=== PATIENT | male | born 1945 | race Caucasian/White ===

== ENCOUNTER → 2024-01-10 06:45 | Outpatient (REF) | payer MEDICARE, OTHER, SELFPAY ==
[2024-01-10 09:57] LABS: Urine Albumin Negative (Neg - Trace); Urine Bilirubin Negative (Negative); Urine Character Clear (Clear); Urine Color Yellow; Urine Glucose Negative (Negative); Urine Ketone Negative (Negative); Urine Leukocyte Trace (Negative); Urine Nitrite Negative (Negative); Urine Occult Blood Negative (Negative); Urine Specific Gravity 1.015 (<1.030); Urine Urobilinogen Negative (Neg - 1+)
[2024-01-10 09:58] LABS: % Basophils 1.1 % (0-2); % Eosinophils 9.5 % (0-6); % Immature Granulocytes 0.4 % (0-0.5); % Lymphocytes 21.7 % (20.5-51.1); % Monocytes 8.3 % (1.7-9.3); Absolute Basophils 0.1 10^3/uL (0-0.2); Absolute Eosinophils 0.7 10^3/uL (0-0.7); Absolute Lymphocytes 1.6 10^3/uL (1.2-3.4); Absolute Monocytes 0.6 10^3/uL (0.1-0.6); Absolute Neutrophils 4.2 10^3/uL (1.4-6.5); Hematocrit 41.8 % (39.0-52.0); Hemoglobin 13.7 g/dL (13.0-18.0); Mean Corp Hgb Conc. 32.8 g/dL (33.0-37.0); Mean Corpuscular Hgb 33.1 pg (27.0-31.0); Mean Platelet Volume 11.2 fL (7.4-10.4); Nucleated Red Blood Cells % 0 % (-); Platelet Count 175 10^3/uL (130-400); Red Blood Cell Count 4.14 10^6/uL (4.70-6.10); Red Cell Dist. Width 13.9 % (11.5-14.5); White Blood Cell Count 7.1 10^3/uL (4.8-10.8)
[2024-01-10 10:16] LABS: Urine Squamous Cell 0-2 /LPF (Few)
[2024-01-10 10:17] LABS: Urine Red Blood Cell 0-2 /HPF (0-2); Urine White Cell 0-2 /HPF (0-5)
[2024-01-10 11:05] LABS: Glycohemoglobin (HgbA1c) 6.1 % (4.0-5.6)
[2024-01-10 12:36] LABS: ALT (SGPT) 17 U/L (0-50); AST (SGOT) 25 U/L (17-59); Albumin 4.6 g/dl (3.5-5.0); Alkaline Phosphatase 63 U/L (38-126); Blood Urea Nitrogen 23 mg/dl (9-20); Calcium 9.8 mg/dl (8.4-10.2); Carbon Dioxide 24 mmol/L (22-30); Chloride 106 mmol/L (98-107); Glucose 101 mg/dl (70-99); HDL Cholesterol 47 mg/dl; LDL Cholesterol, Calculated 66 mg/dl; Potassium 4.3 mmol/L (3.5-5.1); Sodium 142 mmol/L (135-145); Total Bilirubin 1.1 mg/dl (0.2-1.3); Total Cholesterol 141 mg/dl (50-199); Total Protein 7.3 g/dl (6.3-8.2); Triglyceride 143 mg/dl (10-149); Very Low Density Lipoprotein 28 mg/dl (0-30); eGFR 51.77
[2024-01-10 12:37] LABS: PSA, Total - Screen 4.57 ng/ml (0.0-4.0); TSH Reflex To Free T4 2.93 uIU/ml (0.47-4.68)
== END ==
LOC: HWLAB 06:45
PROVIDERS: ATTENDING PHYSICIAN Family Medicine
DX: E11.69 Type 2 diabetes mellitus with other specified complication (principal); N42.9 Disorder of prostate, unspecified; E07.9 Disorder of thyroid, unspecified; I10 Essential (primary) hypertension; Z12.5 Encounter for screening for malignant neoplasm of prostate
CPT/HCPCS: 36415; 80053; 80061; 81003; 81015; 83036; 84443; 85025; G0103

== ENCOUNTER 2024-06-06 18:02 | Inpatient (IN) | payer MEDICARE, OTHER, SELFPAY ==
[2024-06-06] VITALS (8 sets, daily range): BP systolic 101–144; BP diastolic 51–76; BMI 23.8
--- NOTE | 2024-06-06 13:16 | ED.GENMED ---
History of Present Illness
General
Chief Complaint: Dizziness
Time Seen by Provider: 06/06/24 13:01
History of Present Illness
History of Present Illness:
78-year-old male with medical history significant for CAD status post bypass and hypertension presents to the emergency department for evaluation of generalized weakness, lightheadedness, nausea, and abdominal cramping for 2 to 3 weeks. He also
notes that he has been jaundiced for at least 1 month but declined to seek medical evaluation for this. Denies any abdominal pain at present. Appetite has generally been poor with early satiety. Denies any fevers or night sweats. Prior abdominal
surgeries include cholecystectomy and appendectomy
Past History
Past History
ED Past Medical History: HTN
ED Past Surgical History: Appendectomy and Cholecystectomy
Social History
Tobacco: Non-smoker
Alcohol: None
Drug: None
Personal:
Living: with family
Review of Systems
Review of Systems
Allergies reviewed?: Yes
All Other Systems: ROS reviewed and negative except as documented in HPI and ROS
Phy Exam
Physical Exam
Physical Exam:
GEN: Markedly jaundiced, no apparent distress
HEENT: Oral mucosa moist, no scleral icterus
Cardiac: Regular rate and rhythm, no murmurs
Lung: No respiratory distress, no tachypnea
Abdomen: Soft, grossly nontender, no palpable masses
MSK: No gross deformity or injuries
Skin: marked jaundice
Neuro: AO x3, moves all extremities freely
Psych: Calm, cooperative
Course
Orders/Labs/Results
Orders:
Orders
06/06/24 12:55
EKG [Electrocardiogram (*1)] Stat
Reason for Study: Vertigo / Dizzy
EKG- Treatment ONCE
06/06/24 13:14
CT Abd/Pel (IV only)-[facility] only Urgent
Comment:
Reason For Exam: painless jaundice
0.9% Sodium Chloride 1000 ml [Nss] 1,000 ml IV BOLUS
06/06/24 13:15
Urinalysis Reflex To Culture Urgent
06/06/24 13:50
Ammonia Urgent
Complete Blood Count/With Diff Urgent
Comprehensive Metabolic Panel Urgent
Direct Bilirubin Urgent
Lipase Urgent
Prothrombin Time Urgent
06/06/24 17:13
Admit/Transfer Patient As Directed
Co-Sign Provider:
Level of Care: Inpatient admission
Assign to:: Medical/Surgical
Physician / Group: [facility]
Diagnosis: Jaundice
Reason for Hospitalization: IVFs, MRI, GI consult
Expected length of stay greater than two midnights?: Yes
ELOS- Estimated Length of Stay in days: 3
I certify the patient meets the requirements for IP care: Yes
PRN Pain Medication Management As Directed
May give lesser potent ordered pain med per pt: Yes
preference::
Protocol:: Medication orders for pain may be administered in a
manner that supports deferring to patient preference
when the pt is:
- Requesting an ordered lesser potent pain medication.
Least to most potent pain medications are defined
as: acetaminophen < NSAID < tramadol < opioids
(morphine, oxycodone, hydromorphone).
- Requesting a lesser dose of the same medication IF
ORDERED.
- Requesting a less intrusive route of administration
if both routes are prescribed by the provider (PO <
IV).
06/06/24 17:15
Code Status As Directed
Resuscitation Status: Full Code
Abnormal Lab Results
06/06/24
13:50
WBC 13.6 H 10^3/uL
(4.8-10.8)
RBC 3.33 L 10^6/uL
(4.70-6.10)
Hgb 11.2 L g/dL
(13.0-18.0)
Hct 31.2 L %
(39.0-52.0)
MCH 33.6 H pg
(27.0-31.0)
RDW 18.6 H %
(11.5-14.5)
MPV 11.5 H fL
(7.4-10.4)
Abs Immat Gran (auto) 0.2 H 10^3/uL
(0-0.05)
Absolute Neuts (auto) 12.0 H 10^3/uL
(1.4-6.5)
Absolute Lymphs (auto) 0.5 L 10^3/uL
(1.2-3.4)
Absolute Monos (auto) 0.9 H 10^3/uL
(0.1-0.6)
Immature Gran % 1.1 H %
(0-0.5)
Neutrophils % 87.8 H %
(42.2-75.2)
Lymphocytes % 3.7 L %
(20.5-51.1)
Carbon Dioxide 17 L mmol/L
(22-30)
BUN 35 H mg/dl
(9-20)
Creatinine 1.4 H mg/dL
(0.7-1.3)
Glucose 140 H mg/dl
(70-99)
Total Bilirubin 11.5 H mg/dl
(0.2-1.3)
Direct Bilirubin 8.2 H mg/dl
(0.0-0.4)
AST 115 H U/L
(17-59)
ALT 174 H U/L
(0-50)
Alkaline Phosphatase 624 H U/L
(38-126)
Ammonia < 9 L umol/L
(9-30)
06/06/24 13:50
06/06/24 13:50
Vital Signs
Initial and Last Documented VS:
Initial Vital Signs
Temp Pulse Resp BP Pulse Ox
98.2 F 98 20 144/74 100
06/06/24 12:55 06/06/24 12:55 06/06/24 12:55 06/06/24 12:55 06/06/24 12:55
Last Documented Vital Signs
Temp Pulse Resp BP Pulse Ox
98.2 F 93 20 116/59 99
06/06/24 12:55 06/06/24 17:00 06/06/24 12:55 06/06/24 17:00 06/06/24 17:00
MDM/Problems Addressed
MDM/Problems Addressed:
Imaging does not clearly reveal a pancreatic or biliary mass however this remains at the top of the differential. Certainly could represent an obstructing gallstone or biliary stricture. The patient will be admitted to the hospitalist service for
further GI workup and management
*Critical Care Note
Total Time (30-74mins, 75-104mins- exclusive of procedures): Not Applicable
ED Attending Note
-
Portions of this chart may have been created with voice recognition software.� Occasional wrong word or��sound alike� substitutions may have occurred due to the inherent limitations of voice recognition software.
Discharge Plan
Departure
Patient Disposition: Admit
Date of Disposition: 06/06/24
Time of Disposition: 16:05
Presentation/result/management discussed w/ accepting MD/DO: Hospitalist
Discharge Problem:
Obstructive jaundice
Interventions
Interventions:
*Risk Screen - Suicide Last Done: 06/06/24 12:55
*General Assessment Last Done: 06/06/24 12:55
*Neglect/Abuse Screening Last Done: 06/06/24 14:28
*ED COVID-19 Vaccine History Last Done: 06/06/24 12:55
ED- Neurological Assessment Last Done: 06/06/24 14:28
ED Swallowing Screen Last Done: 06/06/24 15:05
[2024-06-06] MEDS: NSS 1000 IV ×2 (13:51→19:03)
[2024-06-06 13:59] LABS: % Basophils 0.7 % (0-2); % Eosinophils 0.5 % (0-6); % Immature Granulocytes 1.1 % (0-0.5); % Lymphocytes 3.7 % (20.5-51.1); % Monocytes 6.2 % (1.7-9.3); % Neutrophils 87.8 % (42.2-75.2); Absolute Basophils 0.1 10^3/uL (0-0.2); Absolute Eosinophils 0.1 10^3/uL (0-0.7); Absolute Immature Granulocytes 0.2 10^3/uL (0-0.05); Absolute Lymphocytes 0.5 10^3/uL (1.2-3.4); Absolute Monocytes 0.9 10^3/uL (0.1-0.6); Hematocrit 31.2 % (39.0-52.0); Hemoglobin 11.2 g/dL (13.0-18.0); Mean Corp Hgb Conc. 35.9 g/dL (33.0-37.0); Mean Corpuscular Hgb 33.6 pg (27.0-31.0); Mean Corpuscular Volume 93.7 fL (80.0-94.0); Mean Platelet Volume 11.5 fL (7.4-10.4); Nucleated Red Blood Cells % 0 % (-); Platelet Count 281 10^3/uL (130-400); Red Blood Cell Count 3.33 10^6/uL (4.70-6.10); Red Cell Dist. Width 18.6 % (11.5-14.5); White Blood Cell Count 13.6 10^3/uL (4.8-10.8)
[2024-06-06 14:09] LABS: PT 14.2 Sec (11.4-14.6)
[2024-06-06 14:10] LABS: Ammonia < 9 umol/L (9-30)
[2024-06-06 14:11] LABS: ALT (SGPT) 174 U/L (0-50); AST (SGOT) 115 U/L (17-59); Albumin 4.1 g/dl (3.5-5.0); Alkaline Phosphatase 624 U/L (38-126); Blood Urea Nitrogen 35 mg/dl (9-20); Calcium 9.7 mg/dl (8.4-10.2); Chloride 100 mmol/L (98-107); Direct Bilirubin 8.2 mg/dl (0.0-0.4); Glucose 140 mg/dl (70-99); Lipase 140 U/L (23-300); Potassium 4.2 mmol/L (3.5-5.1); Sodium 138 mmol/L (135-145); Total Bilirubin 11.5 mg/dl (0.2-1.3); Total Protein 7.2 g/dl (6.3-8.2); eGFR 51.77
[2024-06-06 14:21] LABS: Carbon Dioxide 17 mmol/L (22-30)
--- NOTE | 2024-06-06 17:18 | HPS.HSE ---
Family Physician
-
Family Physician: Bhanu Isaacs
Chief Complaint
-
Jaundice
History of Present Illness
Patient is a 78 y/o male past medical history of CAD s/p CABG, Hypertension, Hyperlipidemia and Hypothyroidism who presents with jaundice. Patient reports his skin started to turn yellow about a month ago. Over the past month he has had several
episodes of significant reflux. He reports anorexia, and reports when he eats he feels full very quickly. He denies any weight loss. He denies any changes in bowel movements.
Medical History
Past Medical History
Past Medical History: Reports Other
Additional Past Medical History:
Coronary Artery Disease s/p CABG in 2011
Essential Hypertension
Hyperlipidemia
Hypothyroidism
Past Surgical History: Reports Other
Additional Past Surgical History:
CABG
Cholecystectomy
Appendectomy
Social History
Tobacco: Non-smoker
Alcohol: None
Drug: None
Personal:
Living: With Family
Family History
Family History: Not pertinent
Allergies / Home Medications
Allergies reflects when Allergies were last updated in [facility].
Home Medications with original date entered in [facility]
Allergy/Medication List:
Allergies
Allergy/AdvReac Type Severity Reaction Status Date / Time
Penicillins Allergy Unknown Verified 06/06/24 12:58
Home Medications
aspirin 81 mg tablet,delayed release 81 mg PO DAILY 05/08/12
ascorbic acid (vitamin C) 1,000 mg tablet (Vitamin C) 1,000 mg PO DAILY 06/06/24
cholecalciferol (vitamin D3) 50 mcg (2,000 unit) tablet (Vitamin D3) 50 mcg PO DAILY 06/06/24
elderberry fruit 350 mg capsule 1.7 mg PO DAILY 06/06/24
levothyroxine 50 mcg tablet 50 mcg PO DAILY 06/06/24
metoprolol tartrate 25 mg tablet 12.5 mg PO BID 06/06/24
simvastatin 20 mg tablet 20 mg PO QPM 06/06/24
therapeutic multivitamin 1 tab PO DAILY 06/06/24
Review of Systems
-
A 12 point ROS was completed and negative except as noted: Yes
Constitutional: Reports Chills; Denies Fever
Respiratory: Denies Cough or Trouble Breathing
Cardiac: Denies Chest Pain or Palpitations
Abdomen/GI: Reports See HPI
Physical Exam
Vital Signs
Vital Signs
Temp Pulse Resp BP Pulse Ox
98.2 F 93 20 116/59 99
06/06/24 12:55 06/06/24 17:00 06/06/24 12:55 06/06/24 17:00 06/06/24 17:00
Physical Exam
General: Comfortable and Conversant
HEENT: Moist mucous membranes and Other (Sclera Icteric)
Respiratory: Clear and Non Labored Respirations
Cardiac: S1/S2 and Regular Rhythm; No Murmur
GI: Soft, Non Tender and Non Distended
Rectal: Deferred by Provider
Musculoskeletal: No Clubbing, No Cyanosis and No Edema
Skin: Warm, Dry and Jaundice
Neuro: Awake, Alert and Nonfocal/grossly intact
Psych: Calm
Laboratory Results
-
06/06/24 13:50
06/06/24 13:50
Laboratory Results
PT 14.2 Sec (11.4-14.6) 06/06/24 13:50
INR 1.10 06/06/24 13:50
Total Bilirubin 11.5 mg/dl (0.2-1.3) H 06/06/24 13:50
AST 115 U/L (17-59) H 06/06/24 13:50
ALT 174 U/L (0-50) H 06/06/24 13:50
Alkaline Phosphatase 624 U/L (38-126) H 06/06/24 13:50
Lipase 140 U/L (23-300) 06/06/24 13:50
Data Reviewed
-
CT Scan: Report Reviewed by me
Lab Data: Labs Reviewed by me
Impression/Plan
-
Obstructive Jaundice
-Consult GI
-Check MRI/MRCP
-Start empiric antibiotics with Levaquin and Flagyl
-Continue to trend LFTs
Coronary Artery Disease s/p CABG in 2011
-Continue aspirin
CKD Stage IIIA
-Creatinine at baseline
Essential Hypertension
-Continue metoprolol
Hyperlipidemia
-Hold simvastatin
Hypothyroidism
-Continue levothyroxine
DVT proph: Lovenox
Code Status: Full Code
--- NOTE | 2024-06-06 18:19 | W.PN.UPDATE ---
Update Note
Progress Note Update
This is an addendum to the H&P written by Rosangela Daniels on 06/06/2024. Patient seen and examined independently with PA.
78-year-old male past medical history of CAD, mild CKD, hypothyroidism, hyperlipidemia here with painless jaundice and transaminitis with hyperbilirubinemia. CT abdomen pelvis shows severe intrahepatic/extrahepatic biliary ductal dilatation common
bile duct up to 2.5 cm with nonopacification of the distal common bile duct possibly representing a lesion. There is 2.1 cm cystic focus within the duodenum. Labs leukocytosis.
Presentation concerning for choledocholithiasis secondary to biliary malignancy. MRCP, Zosyn, GI consulted.
[2024-06-06] MEDS: LOPRESSOR 12.5 MG PO (19:59)
[2024-06-06] MEDS: FLAGYL 500 MG 100 IV (19:59)
[2024-06-06] MEDS: LOVENOX 40 MG SC (19:59)
[2024-06-06] MEDS: LEVAQUIN 100 IV (21:06)
[2024-06-06 21:12] LABS: Urine Albumin Trace (Neg - Trace); Urine Bilirubin 2+ (Negative); Urine Character Clear (Clear); Urine Color Amber; Urine Glucose Negative (Negative); Urine Ketone Trace (Negative); Urine Leukocyte Trace (Negative); Urine Nitrite Negative (Negative); Urine Occult Blood Negative (Negative); Urine Specific Gravity 1.015 (<1.030); Urine Urobilinogen 3+ (Neg - 1+)
[2024-06-06 21:36] LABS: Urine Granular Cast 0-2 /LPF (0); Urine White Cell 0-2 /HPF (0-5)
[2024-06-06] MEDS: MELATONIN 5 MG PO (22:39)
[2024-06-07] MEDS: FLAGYL 500 MG 100 IV ×3 (04:21→20:37)
[2024-06-07 05:50] VITALS: BMI 24.1
[2024-06-07] MEDS: SYNTHROID 50 MCG PO (06:00)
--- NOTE | 2024-06-07 07:05 | CON.GI ---
Addendum entered and electronically signed by Catalina Fonseca MD 06/07/24 13:09:
I saw and examined the patient.
The [employer] SUPERINTENDENT's note was reviewed and I agree with the note.
Comment: This is a 78-year-old male who presented with painless jaundice and loss of appetite and was noted to have abnormal LFTs with CT showing intra and extrahepatic ductal dilatation and possible cystic focus within the duodenum. He denies any
fevers or chills also denies any recent weight loss. He has had cholecystectomy a few years ago. No prior colonoscopy, had endoscopy quite a few years ago prior to his cholecystectomy.
Assessment and plan painless obstructive jaundice concerning for neoplasm. He is scheduled for an MRI with MRCP and based on those results will need an EUS and ERCP. Continue antibiotics for now currently has no signs of cholangitis but given mild
leukocytosis and low-grade fever continue antibiotics till obstruction able to be relieved with possible ERCP and stent on Monday
Original Note:
Consultation
-
Date/Time Consultation Requested: 06/06/24 185
Date/Time Consultation Performed: 06/07/24 0700
Requesting Provider: Rosangela Daniels PA-C
Performing Provider: SIL Terry
Reason for Consultation: jaundice
Medical History
Chief Complaint / HPI
History of Present Illness:
Pt is a 78yo presents with hx CAD with prior CABG, hypercholesterolemia, hypothyroidism, prior appe and ismael with onset of jaundice. On admission pt noted with bilirubin in 11.5, D bili 8.2, AST 115, ALT 174, alk phos 624, creat 1.4, WBC 13,600,
hbg 11.2. CT on admission notable for severe intrahepatic and extra hepatic biliary ductal dilation with the common bile duct measuring up to 2.5 cm. There is nonopacification of the distal common bile duct, possibly representing a lesion. There is
an apparent 2.1 cm cystic focus within the duodenum, adjacent to the in the juxta-ampullary region, prior ismael, large inguinal hernia with non obstructive colon, prostatomegaly. Asked to GI consult for evaluation.
In review with patient he has some decreased appetite and increased GERD with Zantac use. He denies any other change in urine/stool color, dysphagia, nausea, vomiting, abdominal pain, diarrhea, constipation or rectal bleeding. Distant hx EGD
prior to ismael in past and no prior colonoscopy.
Past Medical History
Past Medical History: CAD, Hypercholesterolemia and Hypothyroidism
Past Surgical History: Appendectomy, Cardiac (CABG 2011) and Cholecystectomy
Social History
Tobacco: Non-Smoker
Alcohol: None
Drug: None
Personal:
Living: With Family
Employment: Retired
Family History
Family History: Other (no family hx colon CA or polyps )
Allergies / Home Medications
Allergy/AdvReac Type Severity Reaction Status Date / Time
Penicillins Allergy Unknown Verified 06/06/24 12:58
�Medication �Instructions �Recorded
aspirin 81 mg tablet,delayed 81 mg PO DAILY 05/08/12
release
ascorbic acid (vitamin C) 1,000 mg 1,000 mg PO DAILY 06/06/24
tablet (Vitamin C)
cholecalciferol (vitamin D3) 50 50 mcg PO DAILY 06/06/24
mcg (2,000 unit) tablet (Vitamin
D3)
elderberry fruit 350 mg capsule 1.7 mg PO DAILY 06/06/24
levothyroxine 50 mcg tablet 50 mcg PO DAILY 06/06/24
metoprolol tartrate 25 mg tablet 12.5 mg PO BID 06/06/24
simvastatin 20 mg tablet 20 mg PO QPM 06/06/24
therapeutic multivitamin 1 tab PO DAILY 06/06/24
Review of Systems
-
History Source: Patient
Constitutional: Reports Fever (low grade )
EENT: Reports No Symptoms
Respiratory: Reports No Symptoms
Cardiac: Reports No Symptoms
Abdomen/GI: Reports Other (decreased appetite )
: Reports No Symptoms
Musculoskeletal: Reports No Symptoms
Skin: Reports No Symptoms
Neurological: Reports No Symptoms
Endocrine: Reports No Symptoms
Hematologic/Lymphatic: Reports No Symptoms
Vital Signs
Temp Pulse Resp BP Pulse Ox
97.6 F 96 14 120/58 99
06/06/24 23:29 06/06/24 23:29 06/06/24 23:29 06/06/24 23:29 06/06/24 23:29
Physical Exam
Exam
General: Well Developed, Well Nourished and No Apparent Distress
HEENT: Normocephalic and Anicteric
Respiratory: Clear
Cardiac: Regular Rhythm
GI: Soft, Non Tender, Non Distended and Other (minimal asymmetry with left inguinal hernia )
Musculoskeletal: No Clubbing and No Cyanosis
Skin: Warm and Dry
Neuro: Awake, Alert and AO x 3
Psych: Calm
Results
WBC 13.6 10^3/uL (4.8-10.8) H 06/06/24 13:50
Hgb 11.2 g/dL (13.0-18.0) L 06/06/24 13:50
Hct 31.2 % (39.0-52.0) L 06/06/24 13:50
MCV 93.7 fL (80.0-94.0) 06/06/24 13:50
Plt Count 281 10^3/uL (130-400) 06/06/24 13:50
Absolute Neuts (auto) 12.0 10^3/uL (1.4-6.5) H 06/06/24 13:50
PT 14.2 Sec (11.4-14.6) 06/06/24 13:50
INR 1.10 06/06/24 13:50
Sodium 138 mmol/L (135-145) 06/06/24 13:50
Potassium 4.2 mmol/L (3.5-5.1) 06/06/24 13:50
Chloride 100 mmol/L (98-107) 06/06/24 13:50
Carbon Dioxide 17 mmol/L (22-30) L 06/06/24 13:50
BUN 35 mg/dl (9-20) H 06/06/24 13:50
Creatinine 1.4 mg/dL (0.7-1.3) H 06/06/24 13:50
Calcium 9.7 mg/dl (8.4-10.2) 06/06/24 13:50
Total Bilirubin 11.5 mg/dl (0.2-1.3) H 06/06/24 13:50
AST 115 U/L (17-59) H 06/06/24 13:50
ALT 174 U/L (0-50) H 06/06/24 13:50
Alkaline Phosphatase 624 U/L (38-126) H 06/06/24 13:50
Lipase 140 U/L (23-300) 06/06/24 13:50
Diagnostic Image Results:
06/06/24 CT Abd/Pel (IV only)-DH only
Severe intrahepatic and extra hepatic biliary ductal dilation with the common bile duct measuring up to 2.5 cm. There is nonopacification of the distal common bile duct, possibly representing a lesion. There is an apparent 2.1 cm cystic focus within
the duodenum, adjacent to the in the juxta-ampullary region. Recommend GI consultation for further evaluation.
Prior cholecystectomy.
Large left inguinal hernia containing nonobstructing colon.
Prostatomegaly.
Prior GI Procedures:
EGD: in past prior to ismael
Colonoscopy: none
Assessment / Plan
-
Pt is a 78yo presents with hx CAD with prior CABG, hypercholesterolemia, hypothyroidism, prior appe and ismael with onset of jaundice. On admission pt noted with bilirubin in 11.5, D bili 8.2, AST 115, ALT 174, alk phos 624, creat 1.4, WBC 13,600,
hbg 11.2. CT on admission notable for severe intrahepatic and extra hepatic biliary ductal dilation with the common bile duct measuring up to 2.5 cm. There is nonopacification of the distal common bile duct, possibly representing a lesion. There is
an apparent 2.1 cm cystic focus within the duodenum, adjacent to the in the juxta-ampullary region, prior ismael, large inguinal hernia with non obstructive colon, prostatomegaly. Asked to GI consult for evaluation.
-jaundice
-CT concern for severe ductal dilatation CBD 2.5 cm with possible CBD lesion with 2.1 cm focus in duodenum
-leukocytosis/low grade temp
-mild FRANCESCA
-large non obstructive left inguinal hernia
other med problems:
-CAD with prior CABG
-hypercholesterolemia
-hypothyroidism
-appe
-ismael
PLAN:
etiology of increased LFT's with concern for possible distal CBD lesion and also noted 2.1 cystic focus in duodenum
plan for MRI with and without contrast
reviewed with MRI will be later today -- ok for breakfast then NPO
after completed will need to review results with patient and
cont abx with low grade fever and leukocytosis
will likely need EUS/ERCP after MRI review timing to be determined as no availability today
reviewed with patient aware of left inguinal hernia
will follow
-
-
Thank you for consultation and allowing me to participate in the patient's care. Please call the conveyor man GI physician during the after hours with any questions or concerns.
[2024-06-07 07:42] VITALS: BP 114/57
[2024-06-07 08:09] LABS: ALT (SGPT) 129 U/L (0-50); AST (SGOT) 98 U/L (17-59); Albumin 2.9 g/dl (3.5-5.0); Alkaline Phosphatase 443 U/L (38-126); Blood Urea Nitrogen 28 mg/dl (9-20); Calcium 8.2 mg/dl (8.4-10.2); Carbon Dioxide 14 mmol/L (22-30); Chloride 107 mmol/L (98-107); Estimated Creatinine Clearance 45 ml/min; Glucose 132 mg/dl (70-99); Potassium 4.3 mmol/L (3.5-5.1); Sodium 136 mmol/L (135-145); Total Bilirubin 6.4 mg/dl (0.2-1.3); Total Protein 5.5 g/dl (6.3-8.2); eGFR > 60.00
[2024-06-07] MEDS: NSS 1000 IV (08:12)
[2024-06-07] MEDS: LOPRESSOR PO (08:12)
[2024-06-07] MEDS: PROTONIX 40 MG PO (08:13)
[2024-06-07] MEDS: ASPIR LOW (ENTERIC COATED) 81 MG PO (08:13)
[2024-06-07 08:43] LABS: Hemoglobin 9.5 g/dL (13.0-18.0); Mean Corp Hgb Conc. 36.5 g/dL (33.0-37.0); Mean Corpuscular Hgb 34.5 pg (27.0-31.0); Mean Corpuscular Volume 94.5 fL (80.0-94.0); Mean Platelet Volume 11.9 fL (7.4-10.4); Platelet Count 187 10^3/uL (130-400); Red Blood Cell Count 2.75 10^6/uL (4.70-6.10); Red Cell Dist. Width 18.5 % (11.5-14.5); White Blood Cell Count 6.6 10^3/uL (4.8-10.8)
[2024-06-07 08:46] LABS: Hepatitis C Antibody Negative (Negative)
[2024-06-07] MEDS: SODIUM BICARBONATE 1150 MEQ IV (09:36)
--- NOTE | 2024-06-07 11:53 | W.PN.HOSP.TC ---
Today's Communication/Plan
-
see outlined plan
Assessment / Plan
Assessment / Plan
Assessment:
Obstructive Jaundice with abnormal LFTs
- CT imaging: Severe intrahepatic and extra hepatic biliary ductal dilation with the common bile duct measuring up to 2.5 cm. There is non-opacification of the distal common bile duct, possibly representing a lesion. There is an apparent 2.1 cm
cystic focus within the duodenum, adjacent to the in the juxta-ampullary region.
- MRI imaging pending
- follow LFTs daily
- continue empiric IV Levaquin/Flagyl, day 1
- pain control, anti-emetics
- GI consulting; likely will require EUS/ERCP next week
Coronary Artery Disease s/p CABG in 2011
- continue aspirin/BB
CKD Stage IIIA
Metabolic acidosis from NSS
- stop NSS, switch to bicarb fluids
- follow BMP
Essential Hypertension
- continue metoprolol
Hyperlipidemia
- hold simvastatin
Hypothyroidism
- continue levothyroxine
DVT ppx: Lovenox
Code: Full
Anticipated Discharge: > 48 hours
Subjective/Interval History
-
Date of Service: June 07, 2024
resting comfortably, no complaints at present
Objective Data
-
Labs:
Laboratory Results
06/07/24
07:19
WBC 6.6
Hgb 9.5 L
Hct 26.0 L
Plt Count 187 D
Sodium 136
Potassium 4.3
Chloride 107
Carbon Dioxide 14 L*
BUN 28 H
Creatinine 1.2
Glucose 132 H
Calcium 8.2 L D
Total Bilirubin 6.4 H
AST 98 H
ALT 129 H
Alkaline Phosphatase 443 H
Vital Signs:
Vital Signs
Temp Pulse Resp BP Pulse Ox
100.4 F H 97 16 114/57 97
06/07/24 07:42 06/07/24 07:42 06/07/24 07:42 06/07/24 07:42 06/07/24 07:42
Physical Exam
-
General: No Apparent Distress
HEENT: Normocephalic and Atraumatic
Respiratory: Negative Wheezes
Cardiac: Regular Rhythm and S1/S2
GI: Soft
Genito-urinary: No Costovertebral Tender
Skin: Jaundice
Neuro: AO x 3
Hematologic / Lymphatic: No Lymphadenopathy
Psych: Calm
Data Reviewed
-
Total Time Spent with Patient (in minutes): 41
Labs: Labs Reviewed by me
--- NOTE | 2024-06-07 12:41 | CM ---
Reviewed chart, met with patient to obtain information for assessment. Patient's and daughter were at bedside. Patient stated that he lives with his in an [place] year old community with no steps to enter and all one floor. He is
independent with his ADLs, personal care, dressing and bathing. He ambulates without the use of an assistive device. Patient can cook, clean, do floor tiling professional, and laundry. He drives and can get to all of his appointments and do all of his own
shopping.
Patient has had VN in the past through, .
He has never been to a SNF.
Patient has a prescription plan and uses, [facility] for all of his medications.
His PCP is, Bhanu Cornelius.
Spoke with attending. Medical w/u is still in progress.
Patient would like to return home when stable .
Plan: Case management will continue to follow and assist with discharge planning. Home with when cleared for discharge.
[2024-06-07 15:40] VITALS: BP 102/52
[2024-06-07] MEDS: LOVENOX 40 MG SC (17:30)
[2024-06-07 20:27] VITALS: BP 122/63
[2024-06-07] MEDS: LOPRESSOR 12.5 MG PO (20:38)
[2024-06-07] MEDS: LEVAQUIN 50 IV (21:59)
[2024-06-07 23:14] VITALS: BP 127/72
[2024-06-07] MEDS: MELATONIN 5 MG PO (23:25)
[2024-06-08] MEDS: FLAGYL 500 MG 100 IV ×3 (03:27→19:34)
[2024-06-08] MEDS: SYNTHROID 50 MCG PO (05:47)
[2024-06-08 06:26] VITALS: BMI 24.0
[2024-06-08 07:41] VITALS: BP 124/70
[2024-06-08] MEDS: PROTONIX 40 MG PO (07:47)
[2024-06-08] MEDS: ASPIR LOW (ENTERIC COATED) 81 MG PO (07:47)
[2024-06-08] MEDS: LOPRESSOR 12.5 MG PO (07:47)
[2024-06-08 08:30] LABS: Hematocrit 27.3 % (39.0-52.0); Mean Corp Hgb Conc. 36.6 g/dL (33.0-37.0); Mean Corpuscular Hgb 34.2 pg (27.0-31.0); Mean Corpuscular Volume 93.5 fL (80.0-94.0); Mean Platelet Volume 11.9 fL (7.4-10.4); Platelet Count 187 10^3/uL (130-400); Red Blood Cell Count 2.92 10^6/uL (4.70-6.10); Red Cell Dist. Width 17.8 % (11.5-14.5); White Blood Cell Count 3.7 10^3/uL (4.8-10.8)
--- NOTE | 2024-06-08 09:37 | W.PN.HOSP.TC ---
Today's Communication/Plan
-
continue IV abx and await EUS/ERCP tentatively Monday
await MRI report
Assessment / Plan
Assessment / Plan
Assessment:
Obstructive Jaundice with abnormal LFTs
- CT imaging: Severe intrahepatic and extra hepatic biliary ductal dilation with the common bile duct measuring up to 2.5 cm. There is non-opacification of the distal common bile duct, possibly representing a lesion. There is an apparent 2.1 cm
cystic focus within the duodenum, adjacent to the in the juxta-ampullary region.
- MRI: report pending
- follow LFTs daily
- continue empiric IV Levaquin/Flagyl, day 2
- pain control, anti-emetics
- GI consulting; likely will require EUS/ERCP tenatively Monday
Coronary Artery Disease s/p CABG in 2011
- continue aspirin/BB
CKD Stage IIIA
Metabolic acidosis from NSS
- await todays BMP; IVF capped for now
Essential Hypertension
- continue metoprolol
Hyperlipidemia
- hold simvastatin with elevated LFTs
Hypothyroidism
- continue levothyroxine
DVT ppx: Lovenox
Code: Full
Anticipated Discharge: > 48 hours
Subjective/Interval History
-
Date of Service: June 08, 2024
no new complaints at present
Objective Data
-
Labs:
Laboratory Results
06/08/24 06/08/24
07:48 09:14
WBC 3.7 L
Hgb 10.0 L
Hct 27.3 L
Plt Count 187
Sodium Cancelled Pending
Potassium Cancelled Pending
Chloride Cancelled Pending
Carbon Dioxide Cancelled Pending
BUN Cancelled Pending
Creatinine Cancelled Pending
Glucose Cancelled Pending
Calcium Cancelled Pending
Total Bilirubin Cancelled Pending
AST Cancelled Pending
ALT Cancelled Pending
Alkaline Phosphatase Cancelled Pending
Vital Signs:
Vital Signs
Temp Pulse Resp BP Pulse Ox
98.3 F 79 16 124/70 98
06/08/24 07:41 06/08/24 07:47 06/08/24 07:41 06/08/24 07:47 06/08/24 07:41
I&O
06/07/24 06/08/24 06/09/24
06:59 06:59 06:59
Intake Total 1400 / 1400
Balance 1400 / 1400
Physical Exam
-
General: No Apparent Distress
HEENT: Normocephalic and Atraumatic
Respiratory: Negative Wheezes
Cardiac: Regular Rhythm and S1/S2
GI: Soft
Genito-urinary: No Costovertebral Tender
Musculoskeletal: No Edema
Neuro: AO x 3
Hematologic / Lymphatic: No Lymphadenopathy
Psych: Calm
Data Reviewed
-
Total Time Spent with Patient (in minutes): 41
Labs: Labs Reviewed by me
[2024-06-08 10:14] LABS: ALT (SGPT) 169 U/L (0-50); AST (SGOT) 140 U/L (17-59); Albumin 3.3 g/dl (3.5-5.0); Alkaline Phosphatase 457 U/L (38-126); Blood Urea Nitrogen 23 mg/dl (9-20); Calcium 8.8 mg/dl (8.4-10.2); Carbon Dioxide 26 mmol/L (22-30); Chloride 100 mmol/L (98-107); Estimated Creatinine Clearance 49 ml/min; Glucose 102 mg/dl (70-99); Sodium 136 mmol/L (135-145); Total Bilirubin 5.8 mg/dl (0.2-1.3); Total Protein 5.9 g/dl (6.3-8.2); eGFR > 60.00
--- NOTE | 2024-06-08 12:48 | W.PN.GI.CBS2 ---
Today's Communication / Plan
-
EUS with ERCP Monday
CA 19- 9
CEA
Assessment / Plan
-
Pt is a 78yo presents with hx CAD with prior CABG, hypercholesterolemia, hypothyroidism, prior appe and ismael with onset of jaundice. On admission pt noted with bilirubin in 11.5, D bili 8.2, AST 115, ALT 174, alk phos 624, creat 1.4, WBC 13,600,
hbg 11.2. CT on admission notable for severe intrahepatic and extra hepatic biliary ductal dilation with the common bile duct measuring up to 2.5 cm. There is nonopacification of the distal common bile duct, possibly representing a lesion. There is
an apparent 2.1 cm cystic focus within the duodenum, adjacent to the in the juxta-ampullary region, prior ismael, large inguinal hernia with non obstructive colon, prostatomegaly. Asked to GI consult for evaluation.
-jaundice
-CT concern for severe ductal dilatation CBD 2.5 cm with possible CBD lesion with 2.1 cm focus in duodenum
-leukocytosis/low grade temp
-mild FRANCESCA
-large non obstructive left inguinal hernia
other med problems:
-CAD with prior CABG
-hypercholesterolemia
-hypothyroidism
-appe
-ismael
PLAN:
painless obstructive jaundice concerning for neoplasm and MRI with MRCP consistent with biliary obstruction with ductal dilatation and possible neoplasm either cholangio or pancreatic ca
Will get CA 19-9 and CEA
Will schedule for EUS with ERCP with Dr. Graff for Monday
Continue antibiotics for now till obstruction able to be relieved, currently has no signs of cholangitis or pruritus
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
Subjective
Subjective
Date of Service: June 08, 2024
Feels comfortable no abdominal pain. No pruritus no fevers or chills
Objective
Data Reviewed
Laboratory Data:
Laboratory Results
06/08/24 07:48
06/08/24 09:14
Laboratory Results
PT 14.2 Sec (11.4-14.6) 06/06/24 13:50
INR 1.10 06/06/24 13:50
Total Bilirubin 5.8 mg/dl (0.2-1.3) H 06/08/24 09:14
AST 140 U/L (17-59) H 06/08/24 09:14
ALT 169 U/L (0-50) H 06/08/24 09:14
Alkaline Phosphatase 457 U/L (38-126) H 06/08/24 09:14
Lipase 140 U/L (23-300) 06/06/24 13:50
Vital Signs and I&O:
Vital Signs
Temp Pulse Resp BP Pulse Ox
98.3 F 79 16 124/70 98
06/08/24 07:41 06/08/24 07:47 06/08/24 07:41 06/08/24 07:47 06/08/24 09:48
I&O
06/07/24 06/08/24 06/09/24
06:59 06:59 06:59
Intake Total 1400 / 1400
Balance 1400 / 1400
06/08/24 MRI WITH MRCP
IMPRESSION: Status post cholecystectomy. There is severe dilation of the intrahepatic bile ducts, the common hepatic duct, and the cystic duct remnant. There is obstruction of the common bile duct within the pancreatic head just inferior to the
cystic duct insertion. The obstruction has appearance highly suggestive of neoplastic obstruction. Main differential considerations of bile duct carcinoma and pancreatic carcinoma.
Not mentioned above, the main portal vein and its branches are patent as well as the SMV and the splenic vein. There is no evidence for encasement of these vessels. There is no evidence for encasement of the SMA.
Two hepatic cysts are identified. No MR evidence for hepatic metastatic disease.
Round cystic mass which extends from the region of the inferior head of the pancreas into the second portion of the duodenum, stable appearance on examinations dating back to 2015. 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
Top-normal size lymph node posterior to the pancreatic head as described, suspicious for a neoplastic lymph node.
Physical Exam
Physical Exam
Cardiology: Normal Sinus Rhythm
Pulmonary: Clear
GI: Soft, Non Distended, Non Tender and Normal Bowel Sounds
[2024-06-08 15:44] VITALS: BP 102/66
[2024-06-08] MEDS: LOVENOX 40 MG SC (17:03)
[2024-06-08 19:33] VITALS: BP 109/62
[2024-06-08] MEDS: LOPRESSOR PO (19:36)
[2024-06-08] MEDS: LEVAQUIN 50 IV (20:45)
[2024-06-08] MEDS: MELATONIN 5 MG PO (22:18)
[2024-06-08 23:34] VITALS: BP 126/76
[2024-06-09] MEDS: FLAGYL 500 MG 100 IV ×3 (03:29→20:52)
[2024-06-09] MEDS: SYNTHROID 50 MCG PO (05:26)
[2024-06-09 07:00] VITALS: BP 108/70
[2024-06-09 08:52] LABS: Hematocrit 30.5 % (39.0-52.0); Hemoglobin 10.7 g/dL (13.0-18.0); Mean Corp Hgb Conc. 35.1 g/dL (33.0-37.0); Mean Corpuscular Hgb 33.9 pg (27.0-31.0); Mean Corpuscular Volume 96.5 fL (80.0-94.0); Mean Platelet Volume 11.5 fL (7.4-10.4); Platelet Count 259 10^3/uL (130-400); Red Blood Cell Count 3.16 10^6/uL (4.70-6.10); Red Cell Dist. Width 17.7 % (11.5-14.5); White Blood Cell Count 4.6 10^3/uL (4.8-10.8)
[2024-06-09] MEDS: LOPRESSOR PO (09:04)
[2024-06-09] MEDS: PROTONIX 40 MG PO (09:04)
[2024-06-09] MEDS: ASPIR LOW (ENTERIC COATED) 81 MG PO (09:05)
[2024-06-09 09:56] LABS: ALT (SGPT) 170 U/L (0-50); AST (SGOT) 166 U/L (17-59); Albumin 3.4 g/dl (3.5-5.0); Alkaline Phosphatase 608 U/L (38-126); Blood Urea Nitrogen 23 mg/dl (9-20); Calcium 8.9 mg/dl (8.4-10.2); Carbon Dioxide 25 mmol/L (22-30); Chloride 103 mmol/L (98-107); Estimated Creatinine Clearance 49 ml/min; Glucose 113 mg/dl (70-99); Potassium 4.3 mmol/L (3.5-5.1); Sodium 138 mmol/L (135-145); Total Bilirubin 6.6 mg/dl (0.2-1.3); Total Protein 6.1 g/dl (6.3-8.2); eGFR > 60.00
--- NOTE | 2024-06-09 11:01 | W.PN.GI.CBS2 ---
Today's Communication / Plan
-
EUS and ERCP in AM
Assessment / Plan
-
Pt is a 78yo presents with hx CAD with prior CABG, hypercholesterolemia, hypothyroidism, prior appe and ismael with onset of jaundice. On admission pt noted with bilirubin in 11.5, D bili 8.2, AST 115, ALT 174, alk phos 624, creat 1.4, WBC 13,600,
hbg 11.2. CT on admission notable for severe intrahepatic and extra hepatic biliary ductal dilation with the common bile duct measuring up to 2.5 cm. There is nonopacification of the distal common bile duct, possibly representing a lesion. There is
an apparent 2.1 cm cystic focus within the duodenum, adjacent to the in the juxta-ampullary region, prior ismael, large inguinal hernia with non obstructive colon, prostatomegaly. Asked to GI consult for evaluation.
-jaundice
-CT concern for severe ductal dilatation CBD 2.5 cm with possible CBD lesion with 2.1 cm focus in duodenum
-leukocytosis/low grade temp
-mild FRANCESCA
-large non obstructive left inguinal hernia
other med problems:
-CAD with prior CABG
-hypercholesterolemia
-hypothyroidism
-appe
-ismael
PLAN:
painless obstructive jaundice concerning for neoplasm and MRI with MRCP consistent with biliary obstruction with ductal dilatation and possible neoplasm either cholangio or pancreatic ca
Will get CA 19-9- P and CEA- nl
Will schedule for EUS with ERCP with Dr. Graff for Monday
Continue antibiotics for now till obstruction able to be relieved, currently has no signs of cholangitis or pruritus
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
Reviewed results of MRI extensively with daughter and patient at bedside today and answered their questions. Consider oncology consult inpatient versus outpatient
Subjective
Subjective
Date of Service: June 09, 2024
no fever no abdominal pain no pruritus
Objective
Data Reviewed
Laboratory Data:
Laboratory Results
06/09/24 08:34
06/09/24 08:34
Laboratory Results
PT 14.2 Sec (11.4-14.6) 06/06/24 13:50
INR 1.10 06/06/24 13:50
Total Bilirubin 6.6 mg/dl (0.2-1.3) H 06/09/24 08:34
AST 166 U/L (17-59) H 06/09/24 08:34
ALT 170 U/L (0-50) H 06/09/24 08:34
Alkaline Phosphatase 608 U/L (38-126) H 06/09/24 08:34
Lipase 140 U/L (23-300) 06/06/24 13:50
Vital Signs and I&O:
Vital Signs
Temp Pulse Resp BP Pulse Ox
98.2 F 82 16 108/70 99
06/09/24 07:00 06/09/24 07:00 06/09/24 07:00 06/09/24 09:04 06/09/24 10:39
I&O
06/08/24 06/09/24 06/10/24
06:59 06:59 06:59
Intake Total 1400 / 1400 720 / 720
Balance 1400 / 1400 720 / 720
Physical Exam
Physical Exam
Cardiology: Normal Sinus Rhythm
Pulmonary: Clear
GI: Soft, Non Distended, Non Tender and Normal Bowel Sounds
--- NOTE | 2024-06-09 12:09 | W.PN.HOSP.TC ---
Today's Communication/Plan
-
EUS/ERCP tomorrow
IV abx continue
Assessment / Plan
Assessment / Plan
Assessment:
Obstructive Jaundice with abnormal LFTs
- CT imaging: Severe intrahepatic and extra hepatic biliary ductal dilation with the common bile duct measuring up to 2.5 cm. There is non-opacification of the distal common bile duct, possibly representing a lesion. There is an apparent 2.1 cm
cystic focus within the duodenum, adjacent to the in the juxta-ampullary region.
- MRI: Status post cholecystectomy. There is severe dilation of the intrahepatic bile ducts, the common hepatic duct, and the cystic duct remnant. There is obstruction of the common bile duct within the pancreatic head just inferior to the cystic
duct insertion. The obstruction has appearance highly suggestive of neoplastic obstruction. Main differential considerations of bile duct carcinoma and pancreatic carcinoma. Round cystic mass which extends from the region of the inferior head of the
pancreas into the second portion of the duodenum, stable appearance on examinations dating back to 2015. 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
- follow LFTs daily
- continue empiric IV Levaquin/Flagyl, day 3
- pain control, anti-emetics
- GI consulting; likely will require EUS/ERCP tentatively Monday
Coronary Artery Disease s/p CABG in 2011
- continue aspirin/BB
CKD Stage IIIA
Metabolic acidosis from NSS
- BMP improved; follow daily
Essential Hypertension
- continue metoprolol
Hyperlipidemia
- hold simvastatin with elevated LFTs
Hypothyroidism
- continue levothyroxine
DVT ppx: Lovenox
Code: Full
Anticipated Discharge: > 48 hours
Subjective/Interval History
-
Date of Service: June 09, 2024
no fever, pain, pruritis
Objective Data
-
Labs:
Laboratory Results
06/09/24
08:34
WBC 4.6 L
Hgb 10.7 L
Hct 30.5 L
Plt Count 259 D
Sodium 138
Potassium 4.3
Chloride 103
Carbon Dioxide 25
BUN 23 H
Creatinine 1.1
Glucose 113 H
Calcium 8.9
Total Bilirubin 6.6 H
AST 166 H
ALT 170 H
Alkaline Phosphatase 608 H
Vital Signs:
Vital Signs
Temp Pulse Resp BP Pulse Ox
98.2 F 82 16 108/70 99
06/09/24 07:00 06/09/24 07:00 06/09/24 07:00 06/09/24 09:04 06/09/24 10:39
I&O
06/08/24 06/09/24 06/10/24
06:59 06:59 06:59
Intake Total 1400 / 1400 720 / 720
Balance 1400 / 1400 720 / 720
Physical Exam
-
General: No Apparent Distress
HEENT: Normocephalic and Atraumatic
Respiratory: Negative Wheezes
Cardiac: Regular Rhythm and S1/S2
GI: Soft
Genito-urinary: No Costovertebral Tender
Neuro: AO x 3
Hematologic / Lymphatic: No Lymphadenopathy
Psych: Calm
Data Reviewed
-
Total Time Spent with Patient (in minutes): 42
Labs: Labs Reviewed by me
[2024-06-09 15:00] VITALS: BP 121/65
[2024-06-09] MEDS: LOPRESSOR 12.5 MG PO (20:52)
[2024-06-09] MEDS: MELATONIN 5 MG PO (20:52)
[2024-06-09] MEDS: LEVAQUIN 50 IV (20:52)
[2024-06-09 23:00] VITALS: BP 115/71
[2024-06-10] VITALS (14 sets, daily range): BP systolic 107–157; BP diastolic 60–82; BMI 23.7
[2024-06-10] MEDS: FLAGYL 500 MG 100 IV ×3 (04:22→21:02)
[2024-06-10] MEDS: SYNTHROID 50 MCG PO (05:18)
[2024-06-10 06:48] LABS: Hematocrit 29.1 % (39.0-52.0); Hemoglobin 10.1 g/dL (13.0-18.0); Mean Corp Hgb Conc. 34.7 g/dL (33.0-37.0); Mean Corpuscular Volume 95.1 fL (80.0-94.0); Mean Platelet Volume 11.7 fL (7.4-10.4); Platelet Count 260 10^3/uL (130-400); Red Blood Cell Count 3.06 10^6/uL (4.70-6.10); Red Cell Dist. Width 17.3 % (11.5-14.5); White Blood Cell Count 4.6 10^3/uL (4.8-10.8)
[2024-06-10 07:24] LABS: ALT (SGPT) 152 U/L (0-50); AST (SGOT) 138 U/L (17-59); Alkaline Phosphatase 662 U/L (38-126); Blood Urea Nitrogen 20 mg/dl (9-20); Calcium 8.6 mg/dl (8.4-10.2); Carbon Dioxide 22 mmol/L (22-30); Chloride 105 mmol/L (98-107); Estimated Creatinine Clearance 49 ml/min; Glucose 108 mg/dl (70-99); Potassium 4.2 mmol/L (3.5-5.1); Sodium 138 mmol/L (135-145); Total Bilirubin 5.3 mg/dl (0.2-1.3); Total Protein 5.6 g/dl (6.3-8.2); eGFR > 60.00
[2024-06-10] MEDS: LOPRESSOR PO (08:09)
[2024-06-10] MEDS: PROTONIX PO (08:09)
[2024-06-10] MEDS: ASPIR LOW (ENTERIC COATED) PO (08:09)
--- NOTE | 2024-06-10 12:51 | CM ---
Reviewed chart, patient is functioning at baseline level. Will be able to return home when stable.
Plan: Case management will continue to follow and assist with discharge planning. Home when cleared.
--- NOTE | 2024-06-10 13:12 | W.PN.HOSP.TC ---
Today's Communication/Plan
-
Hem consult
follow AM LFT
Assessment / Plan
Assessment / Plan
78yo M with PMHx of CAD s/p CABG, cholecystectomy, hypothyroidism, HLD, HTN came with jaundice, MRCP found CBD dilation with concern for intrabiliary or pancreatic neoplasm obstructing CBD and pancreatic duct
A/P
#2.1cm cystic lesion in duodenum
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
#Pancreatic duct dilation
#Transaminitis 2/2 biliary duct obstruction
#Elevated Alk.phos s/p cholecystectomy
Follow LFT
GI for ERCP, cont Levaquin/Flagyl meanwhile, but low suspicion for infection
Onc consult
#Anemia, mild
#Leukopenia
reactive
follow CBC
#CAD , stable
#Essential HTN
#Hypothyroidism
cont home meds
#large L inguinal hernia
#prostatomegaly
follow with PCP
DVT ppx on lovenox
Full code
I have spent at least 79min reviewing chart, test results, communication with consultants, family and direct patient care
Anticipated Discharge: Within 24 hours
Subjective/Interval History
-
Date of Service: June 10, 2024
Objective Data
-
Labs:
Laboratory Results
06/10/24
05:58
WBC 4.6 L
Hgb 10.1 L
Hct 29.1 L
Plt Count 260
Sodium 138
Potassium 4.2
Chloride 105
Carbon Dioxide 22
BUN 20
Creatinine 1.1
Glucose 108 H
Calcium 8.6
Total Bilirubin 5.3 H
AST 138 H
ALT 152 H
Alkaline Phosphatase 662 H
Vital Signs:
Vital Signs
Temp Pulse Resp BP Pulse Ox
97.7 F 74 16 115/60 99
06/10/24 11:32 06/10/24 11:32 06/10/24 11:32 06/10/24 11:32 06/10/24 11:32
I&O
06/09/24 06/10/24 06/11/24
06:59 06:59 06:59
Intake Total 720 / 720 780 / 780
Balance 720 / 720 780 / 780
Review of Systems
-
History Source: Patient
All other systems: Reviewed and negative
Physical Exam
-
General: No Apparent Distress
HEENT: Normocephalic
Respiratory: Clear to Auscultation
Cardiac: Regular Rhythm
GI: Soft, Nontender and Nondistended
Musculoskeletal: No Clubbing, No Cyanosis and No Edema
Skin: Jaundice
Neuro: Awake, Alert, Oriented, AO x 3 and No Motor Deficits
Psych: Calm
[2024-06-10 17:56] LABS: CA 19-9 31 U/mL (<=35)
--- NOTE | 2024-06-10 19:16 | PTCARENOTE ---
Pt to ERCP in GI lab at 1540. Pt not back at this time. Called placed to GI lab no answer. Oncoming nurse aware and family in [facility].
--- NOTE | 2024-06-10 20:40 | TRANSFER ---
Received pt from PACU via stretcher. Pt ambulated to bed with assist x1. No complaints of pain. AAOx3. Family at bedside. Post op vital signs initiated. SIL quiroz texted in regards to diet and oral medications order, diet updated, see orders.
[2024-06-10] MEDS: LEVAQUIN 50 IV (22:03)
[2024-06-10] MEDS: MELATONIN 5 MG PO (22:03)
[2024-06-10] MEDS: LOPRESSOR 12.5 MG PO (22:03)
--- NOTE | 2024-06-10 22:09 | CON.ONC ---
Impression
Impression
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
Cardiac history
Unintentional weight loss in setting of probable cancer
Plan
Plan
Discussed findings from CT scan and MRI at length with patient and family. At that time, ERCP findings and EUS findings were not yet available for review.
Await pathology results.
Given patient's cardiac history, anticipate starting treatment with systemic therapy if malignancy confirmed. If favorable response, would then consider referral to radiation oncology and/or surgery for appropriate local therapy. At this time,
patient appears to be without evidence of metastatic disease.
Thank you for consultation, will follow along with you.
Patient History
History of Present Illness
78-year-old man with history of coronary artery disease, elevated cholesterol and hypothyroidism. Presents with painless jaundice and unintentional weight loss of about 10 pounds over the last month. CT on admission showed severe intrahepatic and
extrahepatic biliary ductal dilatation and nonopacification of distal common bile duct. MRI of the abdomen was without evidence of metastatic disease in the liver. A top-normal lymph node posterior to the head of the pancreas measured 1.3 cm. We
are consulted for possible pancreatic cancer versus cholangiocarcinoma. Workup so far includes CEA of 2.0, CA 19-9 of 31.
Past-Medical/Surgical History
Past Medical History
Past Medical History: CAD, Hypercholesterolemia and Hypothyroidism
Past Surgical History: Appendectomy, Cardiac (CABG 2011) and Cholecystectomy
Social History
Tobacco: Non-Smoker
Alcohol: None
Drug: None
Personal:
Living: With Family
Employment: Retired
Family History
Family History: Other (no family hx colon CA or polyps )
Patient Medication
�Medication �Instructions �Recorded �Confirmed �Last Taken �Type
aspirin 81 mg tablet,delayed 81 mg PO DAILY Blood Clot 05/08/12 06/06/24 06/06/24 History
release Prevention/Tx
ascorbic acid (vitamin C) 1,000 mg 1,000 mg PO DAILY Supplement 06/06/24 06/06/24 06/06/24 History
tablet (Vitamin C)
cholecalciferol (vitamin D3) 50 50 mcg PO DAILY Supplement 06/06/24 06/06/24 06/06/24 History
mcg (2,000 unit) tablet (Vitamin
D3)
elderberry fruit 350 mg capsule 1.7 mg PO DAILY Supplement 06/06/24 06/06/24 06/06/24 History
levothyroxine 50 mcg tablet 50 mcg PO DAILY Thyroid 06/06/24 06/06/24 06/06/24 History
metoprolol tartrate 25 mg tablet 12.5 mg PO BID Blood Pressure 06/06/24 06/06/24 06/06/24 History
simvastatin 20 mg tablet 20 mg PO QPM High Cholesterol 06/06/24 06/06/24 06/05/24 History
therapeutic multivitamin 1 tab PO DAILY Supplement 06/06/24 06/06/24 06/06/24 History
Active Medications
Generic Name Dose Route Start Last Admin
Trade Name Freq PRN Reason Stop Dose Admin
Acetaminophen 650 mg 06/06/24 18:55
Acetaminophen 325 Mg Tablet PO 07/04/24 18:54
Q4HPRN PRN
mild pain/ fever>100.5F
Aspirin 81 mg 06/07/24 08:00 06/10/24 08:09
Aspirin 81 Mg (Enteric Coated) Tablet PO 07/05/24 07:59 Not Given
DAILY RANDY
Enoxaparin Sodium 40 mg 06/06/24 18:55 06/08/24 17:03
Enoxaparin Sodium 40 Mg/0.4 Ml Syringe SC 07/04/24 18:54 40 mg
QPM RANDY Administration
Hydromorphone HCl 0.5 mg 06/10/24 08:06
Hydromorphone 0.5 Mg/0.5 Ml Syringe IV 06/11/24 08:06
PACU-Q5MPRN PRN
severe pain
Hydromorphone HCl 0.25 mg 06/10/24 08:06
Hydromorphone 0.25 Mg/0.5 Ml Syringe IV 06/11/24 08:06
PACU-Q5MPRN PRN
moderate pain
Metronidazole 100 mls @ 100 mls/hr 06/06/24 20:00 06/10/24 21:02
Flagyl 500 Mg IV 100 mls
Q8H RANDY Administration
Levofloxacin/Dextrose 250 mg in 50 mls @ 50 mls/hr 06/07/24 20:00 06/10/24 22:03
Levaquin IV 50 mls
Q24H RANDY Administration
Parenteral Electrolytes 1,000 mls @ 100 mls/hr 06/10/24 08:15
Normosol-R/Plasmalyte-A IV 06/11/24 08:06
PER PROTOCOL RANDY
Levothyroxine Sodium 50 mcg 06/07/24 06:00 06/10/24 05:18
Levothyroxine 50 Mcg Tablet PO 07/05/24 05:59 50 mcg
DAILY @ 0600 RANDY Administration
Melatonin 5 mg 06/07/24 22:00 06/10/24 22:03
Melatonin 5 Mg Tablet PO 07/05/24 21:59 5 mg
HS RANDY Administration
Meperidine HCl 12.5 mg 06/10/24 08:06
Meperidine 25 Mg/Ml Injection IV 06/11/24 08:06
PACU-Q5MPRN PRN
shivers
Metoprolol Tartrate 12.5 mg 06/06/24 20:00 06/10/24 22:03
Metoprolol 12.5 Mg Regular Release Dose (1/2 Of 25 Mg Tablet) PO 07/04/24 19:59 12.5 mg
BID RANDY Administration
Ondansetron HCl 4 mg 06/06/24 18:55
Ondansetron 4 Mg/2 Ml Vial IV 07/04/24 18:54
Q6HPRN PRN
NAUSEA/VOMITING
Ondansetron HCl 4 mg 06/10/24 08:06
Ondansetron 4 Mg/2 Ml Vial IV 06/11/24 08:06
PACU-ONCEPRN PRN
nausea/vomiting
Pantoprazole Sodium 40 mg 06/07/24 08:00 06/10/24 08:09
Pantoprazole 40 Mg Delayed Release Tablet PO 07/05/24 07:59 Not Given
DAILY RANDY
Prochlorperazine Edisylate 5 mg 06/10/24 08:06
Prochlorperazine 10 Mg/2 Ml Vial IV 06/11/24 08:06
PACU-ONCEPRN PRN
nausea/vomiting
Sodium Chloride 0 flush 06/06/24 19:00
Sodium Chloride 0.9% (Flush) Syringe IV 07/04/24 18:59
PER PROTOCOL RANDY
Review of Systems
-
History Source: Patient
All Other Systems: Reviewed and Negative
Physical Exam
-
Awake, alert, jaundiced
No palpable cervical supraclavicular or axillary adenopathy
Heart rate and rhythm regular
Lungs clear
Abdomen soft without palpable organomegaly
Extremities no edema
Neurologic exam grossly nonfocal
Labs
Lab Results
WBC 4.6 10^3/uL (4.8-10.8) L 06/10/24 05:58
RBC 3.06 10^6/uL (4.70-6.10) L 06/10/24 05:58
Hgb 10.1 g/dL (13.0-18.0) L 06/10/24 05:58
Hct 29.1 % (39.0-52.0) L 06/10/24 05:58
MCV 95.1 fL (80.0-94.0) H 06/10/24 05:58
MCH 33.0 pg (27.0-31.0) H 06/10/24 05:58
MCHC 34.7 g/dL (33.0-37.0) 06/10/24 05:58
RDW 17.3 % (11.5-14.5) H 06/10/24 05:58
Plt Count 260 10^3/uL (130-400) 06/10/24 05:58
MPV 11.7 fL (7.4-10.4) H 06/10/24 05:58
Abs Immat Gran (auto) 0.2 10^3/uL (0-0.05) H 06/06/24 13:50
Absolute Neuts (auto) 12.0 10^3/uL (1.4-6.5) H 06/06/24 13:50
Absolute Lymphs (auto) 0.5 10^3/uL (1.2-3.4) L 06/06/24 13:50
Absolute Monos (auto) 0.9 10^3/uL (0.1-0.6) H 06/06/24 13:50
Absolute Eos (auto) 0.1 10^3/uL (0-0.7) 06/06/24 13:50
Absolute Basos (auto) 0.1 10^3/uL (0-0.2) 06/06/24 13:50
Immature Gran % 1.1 % (0-0.5) H 06/06/24 13:50
Neutrophils % 87.8 % (42.2-75.2) H 06/06/24 13:50
Lymphocytes % 3.7 % (20.5-51.1) L 06/06/24 13:50
Monocytes % 6.2 % (1.7-9.3) 06/06/24 13:50
Eosinophils % 0.5 % (0-6) 06/06/24 13:50
Basophils % 0.7 % (0-2) 06/06/24 13:50
Creatinine 1.1 mg/dL (0.7-1.3) 06/10/24 05:58
EUS: Parenchymal abnormalities noted in pancreatic head. Possible masslike lesion identified in pancreatic head near ampulla, 1.4 x 1.5 cm. FNA obtained. CBD dilation measuring up to 2.5 cm.
ERCP: Erythema, nodularity and increased vascular pattern and middle third of main bile duct mucosa, severe biliary stricture in the middle third of main bile duct. Plastic stent placed into common bile duct.
Vital Signs
Vital Signs
Temp Pulse Resp BP Pulse Ox
97.6 F 68 16 139/72 98
06/10/24 21:45 06/10/24 22:03 06/10/24 21:45 06/10/24 22:03 06/10/24 21:45
[2024-06-11 03:05] VITALS: BP 138/81
[2024-06-11] MEDS: FLUSH (NSS) 2 FLUSH IV (04:51)
[2024-06-11] MEDS: FLAGYL 500 MG 100 IV (04:51)
[2024-06-11] MEDS: SYNTHROID 50 MCG PO (05:55)
[2024-06-11 06:00] VITALS: BMI 23.7
[2024-06-11 07:30] VITALS: BP 133/88
[2024-06-11 07:50] LABS: % Basophils 0.3 % (0-2); % Eosinophils 0.2 % (0-6); % Lymphocytes 14.1 % (20.5-51.1); % Monocytes 7.2 % (1.7-9.3); % Neutrophils 77.2 % (42.2-75.2); Absolute Immature Granulocytes 0.1 10^3/uL (0-0.05); Absolute Lymphocytes 0.9 10^3/uL (1.2-3.4); Absolute Monocytes 0.4 10^3/uL (0.1-0.6); Absolute Neutrophils 4.8 10^3/uL (1.4-6.5); Hematocrit 29.2 % (39.0-52.0); Hemoglobin 10.6 g/dL (13.0-18.0); Mean Corp Hgb Conc. 36.3 g/dL (33.0-37.0); Mean Corpuscular Hgb 34.5 pg (27.0-31.0); Mean Corpuscular Volume 95.1 fL (80.0-94.0); Mean Platelet Volume 11.4 fL (7.4-10.4); Nucleated Red Blood Cells % 0 % (-); Platelet Count 288 10^3/uL (130-400); Red Blood Cell Count 3.07 10^6/uL (4.70-6.10); Red Cell Dist. Width 17.4 % (11.5-14.5); White Blood Cell Count 6.2 10^3/uL (4.8-10.8)
[2024-06-11] MEDS: ASPIR LOW (ENTERIC COATED) 81 MG PO (08:04)
[2024-06-11] MEDS: LOPRESSOR 12.5 MG PO ×2 (08:05→20:37)
[2024-06-11] MEDS: PROTONIX 40 MG PO (08:05)
[2024-06-11 08:26] LABS: ALT (SGPT) 157 U/L (0-50); AST (SGOT) 190 U/L (17-59); Albumin 3.4 g/dl (3.5-5.0); Alkaline Phosphatase 820 U/L (38-126); Blood Urea Nitrogen 28 mg/dl (9-20); Carbon Dioxide 19 mmol/L (22-30); Chloride 102 mmol/L (98-107); Estimated Creatinine Clearance 45 ml/min; Glucose 114 mg/dl (70-99); Sodium 138 mmol/L (135-145); Total Bilirubin 8.3 mg/dl (0.2-1.3); Total Protein 5.9 g/dl (6.3-8.2); eGFR > 60.00
--- NOTE | 2024-06-11 10:39 | W.PN.GI.CBS2 ---
Today's Communication / Plan
-
-s/p EUS with concern for panc head mass near ampulla s/p FNA with ERCP with biliary stricture stent and biopsy
Will get CA 19-9- 31 and CEA- nl
some increased LFT's today cont to follow may be inflammation post procedure cont to trend
low fat diet with supplement as tolerated
s/p oncology evaluation
updated family with procedure results and labs
monitor overnight and repeat labs in AM to see if can be discharged
last entry from 06/11/24 at 1000
Assessment / Plan
-
Pt is a 78yo presents with hx CAD with prior CABG, hypercholesterolemia, hypothyroidism, prior appe and ismael with onset of jaundice. On admission pt noted with bilirubin in 11.5, D bili 8.2, AST 115, ALT 174, alk phos 624, creat 1.4, WBC 13,600,
hbg 11.2. CT on admission notable for severe intrahepatic and extra hepatic biliary ductal dilation with the common bile duct measuring up to 2.5 cm. There is nonopacification of the distal common bile duct, possibly representing a lesion. There is
an apparent 2.1 cm cystic focus within the duodenum, adjacent to the in the juxta-ampullary region, prior ismael, large inguinal hernia with non obstructive colon, prostatomegaly. Asked to GI consult for evaluation.
-painless jaundice
-s/p EUS with concern for panc head mass near ampulla s/p FNA with ERCP with biliary stricture stent and biopsy
-leukocytosis/low grade temp- resolved
-mild FRANCESCA- improved
-large non obstructive left inguinal hernia
other med problems:
-CAD with prior CABG
-hypercholesterolemia
-hypothyroidism
-appe
-ismael
PLAN:
-s/p EUS with concern for panc head mass near ampulla s/p FNA with ERCP with biliary stricture stent and biopsy
Will get CA 19-9- 31 and CEA- nl
some increased LFT's today cont to follow may be inflammation post procedure cont to trend
low fat diet with supplement as tolerated
s/p oncology evaluation
updated family with procedure results and labs
monitor overnight and repeat labs in AM to see if can be discharged
last entry from 06/11/24 at 1000
Subjective
Subjective
Date of Service: June 11, 2024
on low residue diet, no stools feeling well without abdominal pain
Objective
Data Reviewed
Laboratory Data:
Laboratory Results
06/11/24 07:15
06/11/24 07:15
Laboratory Results
PT 14.2 Sec (11.4-14.6) 06/06/24 13:50
INR 1.10 06/06/24 13:50
Total Bilirubin 8.3 mg/dl (0.2-1.3) H D 06/11/24 07:15
AST 190 U/L (17-59) H 06/11/24 07:15
ALT 157 U/L (0-50) H 06/11/24 07:15
Alkaline Phosphatase 820 U/L (38-126) H 06/11/24 07:15
Lipase 140 U/L (23-300) 06/06/24 13:50
Vital Signs and I&O:
Vital Signs
Temp Pulse Resp BP Pulse Ox
97.4 F 64 16 133/88 100
06/11/24 07:30 06/11/24 08:05 06/11/24 07:30 06/11/24 08:05 06/11/24 08:39
I&O
06/10/24 06/11/24 06/12/24
06:59 06:59 06:59
Intake Total 780 / 780 370 / 370
Balance 780 / 780 370 / 370
Physical Exam
Physical Exam
HEENT: Other (jaundice )
Cardiology: Normal Sinus Rhythm
Pulmonary: Clear
GI: Soft, Non Distended and Non Tender
Extremities: No Edema
Neuro: Non Focal
--- NOTE | 2024-06-11 10:41 | W.PN.ONC2 ---
Today's Communication / Plan
-
Close outpatient follow up will be arranged upon discharge
Impression
Impression
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
s/p EUS with mass like lesion in pancreatic head near the ampulla 06/10, follow for cytology.
s/p ERCP with biopsy and plastic stent to CBD 06/10, follow for path
Cardiac history
Unintentional weight loss in setting of probable cancer
T bili rising 8.3 and transaminitis
Plan
Plan
CT scan and MRI findings were again discussed. We reviewed EUS and ERCP findings and that pathology is pending
Given patient's cardiac history, anticipate starting treatment with systemic therapy if malignancy confirmed. If favorable response, would then consider referral to radiation oncology and/or surgery for appropriate local therapy. At this time,
patient appears to be without evidence of metastatic disease.
Follow LFTs
Subjective/Objective
Chief Complaint
denies pain or nausea
Subjective
afebrile, no hypoxia or hypotension
Vital Signs:
Vital Signs
Temp Pulse Resp BP Pulse Ox
97.4 F 64 16 133/88 100
06/11/24 07:30 06/11/24 08:05 06/11/24 07:30 06/11/24 08:05 06/11/24 08:39
Lab Results:
Laboratory Data
WBC 6.2 10^3/uL (4.8-10.8) 06/11/24 07:15
Hgb 10.6 g/dL (13.0-18.0) L 06/11/24 07:15
Plt Count 288 10^3/uL (130-400) 06/11/24 07:15
PT 14.2 Sec (11.4-14.6) 06/06/24 13:50
INR 1.10 06/06/24 13:50
eGFR > 60.00 06/11/24 07:15
Physical Exam
HEENT: Jaundice and Moist Mucous Membranes
Cardiology: Normal Sinus Rhythm
Pulmonary: Clear
GI: Soft
Extremities: No Edema
Neuro: Non Focal
Review of Systems
Review of Systems
ROS notable for subjective, otherwise negative
[2024-06-11 11:27] VITALS: BP 115/57
--- NOTE | 2024-06-11 12:23 | W.PN.HOSP.TC ---
Today's Communication/Plan
-
labs in AM, if LFT improving - will d/c
Assessment / Plan
Assessment / Plan
78yo M with PMHx of CAD s/p CABG, cholecystectomy, hypothyroidism, HLD, HTN came with jaundice, MRCP found CBD dilation with concern for intrabiliary or pancreatic neoplasm obstructing CBD and pancreatic duct, s/p ERCP on 06/10/24 with biopsy and
plastic stent. Oncology arranged close outpatient follow up
A/P
#2.1cm cystic lesion in duodenum
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
#Pancreatic duct dilation
#Transaminitis 2/2 biliary duct obstruction
#Elevated Alk.phos s/p cholecystectomy
Follow LFT
GI did ERCP, placing stent and pending biopsy
stopped Levaquin/Flagyl since no suspicion for infection
Onc consult
#Anemia, mild
#Leukopenia
reactive
follow CBC
#CAD , stable
#Essential HTN
#Hypothyroidism
cont home meds
#large L inguinal hernia
#prostatomegaly
follow with PCP
DVT ppx on lovenox
Full code
I have spent at least 79min reviewing chart, test results, communication with consultants, family and direct patient care
Anticipated Discharge: Within 24 hours
Subjective/Interval History
-
Date of Service: June 11, 2024
Objective Data
-
Labs:
Laboratory Results
06/11/24
07:15
WBC 6.2
Hgb 10.6 L
Hct 29.2 L
Plt Count 288
Sodium 138
Potassium 5.0
Chloride 102
Carbon Dioxide 19 L
BUN 28 H
Creatinine 1.2
Glucose 114 H
Calcium 9.0
Total Bilirubin 8.3 H D
AST 190 H
ALT 157 H
Alkaline Phosphatase 820 H
Vital Signs:
Vital Signs
Temp Pulse Resp BP Pulse Ox
97.4 F 69 16 115/57 100
06/11/24 11:27 06/11/24 11:27 06/11/24 11:27 06/11/24 11:27 06/11/24 11:27
I&O
06/10/24 06/11/24 06/12/24
06:59 06:59 06:59
Intake Total 780 / 780 370 / 370
Balance 780 / 780 370 / 370
Review of Systems
-
History Source: Patient
All other systems: Reviewed and negative
Physical Exam
-
General: No Apparent Distress
HEENT: Normocephalic
Respiratory: Clear to Auscultation
Cardiac: Regular Rhythm
GI: Soft, Nontender and Nondistended
Skin: Jaundice
Neuro: Awake, Alert, Oriented and AO x 3
[2024-06-11 15:00] VITALS: BP 118/60
--- NOTE | 2024-06-11 15:26 | W.PN.GI.CBS2 ---
Today's Communication / Plan
-
trend labs in am and DC if improving
OP f/u with Dr. Graff and Oncoology
Assessment / Plan
-
Pt is a 78yo presents with hx CAD with prior CABG, hypercholesterolemia, hypothyroidism, prior appe and ismael with onset of jaundice. On admission pt noted with bilirubin in 11.5, D bili 8.2, AST 115, ALT 174, alk phos 624, creat 1.4, WBC 13,600,
hbg 11.2. CT on admission notable for severe intrahepatic and extra hepatic biliary ductal dilation with the common bile duct measuring up to 2.5 cm. There is nonopacification of the distal common bile duct, possibly representing a lesion. There is
an apparent 2.1 cm cystic focus within the duodenum, adjacent to the in the juxta-ampullary region, prior ismael, large inguinal hernia with non obstructive colon, prostatomegaly. Asked to GI consult for evaluation.
-painless jaundice
-s/p EUS with concern for panc head mass near ampulla s/p FNA with ERCP with biliary stricture stent and biopsy
-leukocytosis/low grade temp- resolved
-mild FRANCESCA- improved
-large non obstructive left inguinal hernia
other med problems:
-CAD with prior CABG
-hypercholesterolemia
-hypothyroidism
-appe
-ismael
PLAN:
-s/p EUS with concern for panc head mass near ampulla s/p FNA with ERCP with biliary stricture stent and biopsy
Will get CA 19-9- 31 and CEA- nl
some increased LFT's today cont to follow may be inflammation post procedure cont to trend
low fat diet with supplement as tolerated
s/p oncology evaluation
updated family with procedure results and labs DW and daughter
monitor overnight and repeat labs in AM to see if can be discharged if trending down, no pain
Subjective
Subjective
Date of Service: June 11, 2024
Denies abdominal pain, tolerating diet, status post ERCP with stent placement and biopsy of malignant stricture and also status post EUS with FNA of possible pancreatic head mass. Oncology input also noted
Objective
Data Reviewed
Laboratory Data:
Laboratory Results
06/11/24 07:15
06/11/24 07:15
Laboratory Results
PT 14.2 Sec (11.4-14.6) 06/06/24 13:50
INR 1.10 06/06/24 13:50
Total Bilirubin 8.3 mg/dl (0.2-1.3) H D 06/11/24 07:15
AST 190 U/L (17-59) H 06/11/24 07:15
ALT 157 U/L (0-50) H 06/11/24 07:15
Alkaline Phosphatase 820 U/L (38-126) H 06/11/24 07:15
Lipase 140 U/L (23-300) 06/06/24 13:50
Vital Signs and I&O:
Vital Signs
Temp Pulse Resp BP Pulse Ox
97.4 F 69 16 115/57 100
06/11/24 11:27 06/11/24 11:27 06/11/24 11:27 06/11/24 11:27 06/11/24 11:27
I&O
06/10/24 06/11/24 06/12/24
06:59 06:59 06:59
Intake Total 780 / 780 370 / 370
Balance 780 / 780 370 / 370
06/10/24 ERCP
Impression: - The major papilla appeared to be bulging.
- Erythema, nodularity and increased vascular pattern
of the middle third of the main bile duct mucosa was
found.
- A single severe biliary stricture was found in the
middle third of the main bile duct. The stricture was
malignant appearing.
- A single severe biliary stricture was found in the
middle third of the main bile duct. The stricture was
malignant appearing.
- The upper third of the main bile duct was severely
dilated, acquired.
- The lower third of the main bile duct was dilated.
- The upper third of the main bile duct was severely
dilated.
- A biliary sphincterotomy was performed.
- Biopsy was performed in the middle third of the main
bile duct.
- One plastic stent was placed into the common bile
duct.
06/10/24 EUS
Impression: - There was no sign of significant pathology in the
genu of the pancreas and pancreatic body.
- Pancreatic parenchymal abnormalities consisting of
hyperechoic strands, hyperechoic foci and lobularity
were noted in the pancreatic head and pancreatic body.
- A possible mass-like lesion was identified in the
pancreatic head near the ampulla. This was staged Nx
Mx by endosonographic criteria. Fine needle aspiration
performed.
- There was dilation in the common bile duct which
measured up to 25 mm.
Physical Exam
Physical Exam
Cardiology: Normal Sinus Rhythm
Pulmonary: Clear
GI: Soft, Non Distended, Non Tender and Normal Bowel Sounds
--- NOTE | 2024-06-11 16:47 | CM ---
Reviewed chart, per nursing patient ambulating and functioning at baseline. Still requiring acute level of care.
Plan: Case management will continue to follow and assist with discharge planning. Home when stable.
[2024-06-11 20:22] VITALS: BP 115/62
[2024-06-11] MEDS: MELATONIN 5 MG PO (21:56)
[2024-06-12] VITALS: BP 107/60
[2024-06-12 03:05] VITALS: BP 120/63
[2024-06-12 05:44] VITALS: BMI 23.8
[2024-06-12] MEDS: SYNTHROID 50 MCG PO (05:59)
[2024-06-12 07:10] LABS: Hematocrit 27.7 % (39.0-52.0); Hemoglobin 9.9 g/dL (13.0-18.0); Mean Corp Hgb Conc. 35.7 g/dL (33.0-37.0); Mean Corpuscular Hgb 32.9 pg (27.0-31.0); Platelet Count 299 10^3/uL (130-400); Red Blood Cell Count 3.01 10^6/uL (4.70-6.10); Red Cell Dist. Width 17.2 % (11.5-14.5); White Blood Cell Count 6.1 10^3/uL (4.8-10.8)
[2024-06-12 07:32] LABS: ALT (SGPT) 147 U/L (0-50); AST (SGOT) 161 U/L (17-59); Alkaline Phosphatase 770 U/L (38-126); Blood Urea Nitrogen 41 mg/dl (9-20); Calcium 8.6 mg/dl (8.4-10.2); Carbon Dioxide 22 mmol/L (22-30); Chloride 106 mmol/L (98-107); Estimated Creatinine Clearance 34 ml/min; Glucose 116 mg/dl (70-99); Potassium 4.4 mmol/L (3.5-5.1); Sodium 139 mmol/L (135-145); Total Bilirubin 5.9 mg/dl (0.2-1.3); Total Protein 5.5 g/dl (6.3-8.2)
[2024-06-12] MEDS: PROTONIX 40 MG PO (07:32)
[2024-06-12] MEDS: ASPIR LOW (ENTERIC COATED) 81 MG PO (07:32)
[2024-06-12] MEDS: LOPRESSOR PO (07:32)
[2024-06-12 07:47] VITALS: BP 115/66
--- NOTE | 2024-06-12 10:20 | W.PN.GI.CBS2 ---
Addendum entered and electronically signed by SIL Mccracken 07/03/24 09:01:
clarfication to below: pancreatic adeno CA within differential for pancreatic head mass
Original Note:
Today's Communication / Plan
-
-s/p EUS with concern for panc head mass near ampulla s/p FNA with ERCP with biliary stricture stent and biopsy
await bx results pending
CA 19-9- 31 and CEA- nl
LFT improved from yesterday likely inflammation and remains pain free
cont low fat diet with supplement
s/p oncology evaluation
updated family with procedure results and labs 06/11 to call for path next week
oncology to arrange OP follow up
reviewed with Dr. Jamel conner from GI for discharge
Assessment / Plan
-
Pt is a 78yo presents with hx CAD with prior CABG, hypercholesterolemia, hypothyroidism, prior appe and ismael with onset of jaundice. On admission pt noted with bilirubin in 11.5, D bili 8.2, AST 115, ALT 174, alk phos 624, creat 1.4, WBC 13,600,
hbg 11.2. CT on admission notable for severe intrahepatic and extra hepatic biliary ductal dilation with the common bile duct measuring up to 2.5 cm. There is nonopacification of the distal common bile duct, possibly representing a lesion. There is
an apparent 2.1 cm cystic focus within the duodenum, adjacent to the in the juxta-ampullary region, prior ismael, large inguinal hernia with non obstructive colon, prostatomegaly. Asked to GI consult for evaluation.
Laboratory Tests
06/09/24 06/10/24 06/11/24
08:34 05:58 07:15
Total Bilirubin 6.6 H 5.3 H 8.3 H D
AST 166 H 138 H 190 H
ALT 170 H 152 H 157 H
Alkaline Phosphatase 608 H 662 H 820 H
06/12/24
06:44
Total Bilirubin 5.9 H
AST 161 H
ALT 147 H
Alkaline Phosphatase 770 H
-painless jaundice
-s/p EUS with concern for panc head mass near ampulla s/p FNA with ERCP with biliary stricture stent and biopsy
-leukocytosis/low grade temp- resolved
-mild FRANCESCA- improved
-large non obstructive left inguinal hernia
other med problems:
-CAD with prior CABG
-hypercholesterolemia
-hypothyroidism
-appe
-ismael
PLAN:
-s/p EUS with concern for panc head mass near ampulla s/p FNA with ERCP with biliary stricture stent and biopsy
await bx results pending
CA 19-9- 31 and CEA- nl
LFT improved from yesterday likely inflammation and remains pain free
cont low fat diet with supplement
s/p oncology evaluation
updated family with procedure results and labs 06/11 to call for path next week
oncology to arrange OP follow up
reviewed with Dr. Jamel conner from GI for discharge
Subjective
Subjective
Date of Service: June 12, 2024
low fat diet no stools no abdominal pain
Objective
Data Reviewed
Laboratory Data:
Laboratory Results
06/12/24 06:44
06/12/24 06:44
Laboratory Results
PT 14.2 Sec (11.4-14.6) 06/06/24 13:50
INR 1.10 06/06/24 13:50
Total Bilirubin 5.9 mg/dl (0.2-1.3) H 06/12/24 06:44
AST 161 U/L (17-59) H 06/12/24 06:44
ALT 147 U/L (0-50) H 06/12/24 06:44
Alkaline Phosphatase 770 U/L (38-126) H 06/12/24 06:44
Lipase 140 U/L (23-300) 06/06/24 13:50
Vital Signs and I&O:
Vital Signs
Temp Pulse Resp BP Pulse Ox
98.4 F 74 16 115/66 100
06/12/24 07:47 06/12/24 07:47 06/12/24 07:47 06/12/24 07:47 06/12/24 07:47
I&O
06/11/24 06/12/24 06/13/24
06:59 06:59 06:59
Intake Total 970 / 970
Balance 970 / 970
Physical Exam
Physical Exam
HEENT: Other (jaundice )
Cardiology: Normal Sinus Rhythm
Pulmonary: Clear
GI: Soft, Non Distended and Non Tender
Extremities: No Edema
Neuro: Non Focal
[2024-06-12 11:18] VITALS: BP 104/59
--- NOTE | 2024-06-12 11:43 | W.PN.HOSP.TC ---
Today's Communication/Plan
-
D/C
Assessment / Plan
Assessment / Plan
78yo M with PMHx of CAD s/p CABG, cholecystectomy, hypothyroidism, HLD, HTN came with jaundice, MRCP found CBD dilation with concern for intrabiliary or pancreatic neoplasm obstructing CBD and pancreatic duct, s/p ERCP on 06/10/24 with biopsy and
plastic stent. Oncology arranged close outpatient follow up with - patient is aware of an appointment. Bilirubin was decreaseing 24h after ERCP, medically stable to be d/c as per communication with GI.
A/P
#2.1cm cystic lesion in duodenum
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
#Pancreatic duct dilation
#Transaminitis 2/2 biliary duct obstruction
#Elevated Alk.phos s/p cholecystectomy
Follow LFT
GI did ERCP, placing stent and pending biopsy
stopped Levaquin/Flagyl since no suspicion for infection
Onc consult
#Anemia, mild
#Leukopenia
reactive
follow CBC
#CAD , stable
#Essential HTN
#Hypothyroidism
cont home meds
#large L inguinal hernia
#prostatomegaly
follow with PCP
DVT ppx on lovenox
Full code
I have spent at least 39min reviewing chart, test results, communication with consultants, family and direct patient care
Anticipated Discharge: Today
Subjective/Interval History
-
Date of Service: June 12, 2024
Objective Data
-
Labs:
Laboratory Results
06/12/24
06:44
WBC 6.1
Hgb 9.9 L
Hct 27.7 L
Plt Count 299
Sodium 139
Potassium 4.4
Chloride 106
Carbon Dioxide 22
BUN 41 H
Creatinine 1.6 H
Glucose 116 H
Calcium 8.6
Total Bilirubin 5.9 H
AST 161 H
ALT 147 H
Alkaline Phosphatase 770 H
Vital Signs:
Vital Signs
Temp Pulse Resp BP Pulse Ox
98.0 F 86 18 104/59 99
06/12/24 11:18 06/12/24 11:18 06/12/24 11:18 06/12/24 11:18 06/12/24 11:18
I&O
06/11/24 06/12/24 06/13/24
06:59 06:59 06:59
Intake Total 970 / 970
Balance 970 / 970
Review of Systems
-
History Source: Patient
All other systems: Reviewed and negative
Physical Exam
-
General: No Apparent Distress
HEENT: Normocephalic and Atraumatic
Respiratory: Clear to Auscultation
GI: Soft, Nontender and Nondistended
Skin: Jaundice
Neuro: Awake, Alert, Oriented and AO x 3
Psych: Calm
--- NOTE | 2024-06-12 11:47 | W.DCSUMMARY ---
Discharge Summary
Discharge Data
Date of Admission: 06/06/24
Date of Discharge: 06/12/24
-
Pending Results: Yes
Additional Pending Results:
Pathology form ERCP
Hospital Course
78yo M with PMHx of CAD s/p CABG, cholecystectomy, hypothyroidism, HLD, HTN came with jaundice, MRCP found CBD dilation with concern for intrabiliary or pancreatic neoplasm obstructing CBD and pancreatic duct, s/p ERCP on 06/10/24 with biopsy and
plastic stent. Oncology arranged close outpatient follow up with - patient is aware of an appointment. Bilirubin was decreaseing 24h after ERCP, medically stable to be d/c as per communication with GI.
I have spent at least 38min preparing d/c
Patient was managed for:
#2.1cm cystic lesion in duodenum
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
#Pancreatic duct dilation
#Transaminitis 2/2 biliary duct obstruction
#Elevated Alk.phos s/p cholecystectomy
#Anemia, mild
#Leukopenia
#CAD , stable
#Essential HTN
#Hypothyroidism
#large L inguinal hernia
Discharge Plan
-
Patient Disposition: Home (Routine Discharge)
Discharge Diagnosis/Procedures: Biliary obstruction
Diet: Low Fat
Additional Diets: add oral supplement daily
Activity: As tolerated
Driving Restrictions: As prior to admission
Referrals:
Hema Guzman DO [Active] - ([facility] already scheduled appointment )
Alan Graff MD [Active] - (call next week to review biopsy results )
Bhanu Isaacs DO [Family Provider] -
Prescriptions:
Continued
aspirin 81 MG tablet,delayed release (/EC)
81 mg PO DAILY
therapeutic multivitamin Tablet
1 tab PO DAILY
levothyroxine 50 mcg Tablet
50 mcg PO DAILY
simvastatin 20 mg Tablet
20 mg PO QPM
metoprolol tartrate 25 mg Tablet
12.5 mg PO BID
cholecalciferol (vitamin D3) [Vitamin D3] 50 mcg (2,000 unit) Tablet
50 mcg PO DAILY
elderberry fruit 350 mg Capsule
1.7 mg PO DAILY
Discontinued
ascorbic acid (vitamin C) [Vitamin C] 1,000 mg Tablet
1,000 mg PO DAILY
Discharge Orders:
Discharge Patient (As Directed); Ordered 06/12/24
Ordered By: Zaire Mccullough
Discharge Date and Time
Print Language: LAO
--- NOTE | 2024-06-12 13:10 | CM ---
Reviewed chart, patient medically cleared for discharge. Met with patient and his who was at bedside. Reviewed IMM with patient. He signed, It is now on chart.
Plan: Case management will continue to follow and assist with discharge planning. Home.
--- NOTE | 2024-06-18 16:35 | PN.CDI ---
CDI
- -
CDI:
Physician Documentation Request
Admit Date: 06/06/24 18:02
Dear Doctor Dajuan,
Please review the following and provide your response in the progress notes.
Clinical Indicators:
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
Additional clinical indicators in the chart include:
Pt admitted with jaundice -concern for pancreatic head mass
Path report ,' Pancreas, uncinate process, fine needle aspiration, EUS Positive for malignant cells, adenocarcinoma.'
Please indicate in your progress notes if you are in agreement that the above diagnosis is valid for this patient:
____ - Pancreatic Adenocarcinoma is a valid diagnosis (Please include it in your progress notes)
____ - Pancreatic Adenocarcinoma is not a valid diagnosis for this patient
____ - Other
Use of terms such as suspected, likely, concern for, or probable are acceptable for a diagnosis that is being evaluated, monitored or treated as if it exists and can be coded in the inpatient setting, when documented at the time of discharge.
Thank you,
Indy Houston RN
CDI Specialist
Jerome Text
Please use your independent medical judgment in providing your response.
== END 2024-06-12 13:12 | disposition home or self-care (01) | DRG 435 ==
LOC: 3 WEST ACU 18:02
PROVIDERS: Internal Medicine; Internal Medicine Gastroenterology; Nurse Practitioner Adult Health; Physician Assistant; Physician Assistant Medical; ADMITTING PHYSICIAN Hospitalist; ATTENDING PHYSICIAN Internal Medicine; CONSULT PHYSICIAN Internal Medicine Gastroenterology; CONSULT PHYSICIAN Internal Medicine Hematology & Oncology; EMERGENCY PHYSICIAN Student in an Organized Health Care Education/Training Program; FAMILY PHYSICIAN Family Medicine
PROC: 0F798DZ Dilation of Common Bile Duct with Intraluminal Device, Via Natural or Artificial Opening Endoscopic (ICD-10-PCS; 2024-06-10)
PROC: 0FB98ZX Excision of Common Bile Duct, Via Natural or Artificial Opening Endoscopic, Diagnostic (ICD-10-PCS; 2024-06-10)
PROC: 0FBG8ZX Excision of Pancreas, Via Natural or Artificial Opening Endoscopic, Diagnostic (ICD-10-PCS; 2024-06-10)
DX: C25.0 Malignant neoplasm of head of pancreas (principal); K83.1 Obstruction of bile duct; E87.20 Acidosis, unspecified; N17.9 Acute kidney failure, unspecified; C78.89 Secondary malignant neoplasm of other digestive organs; D63.1 Anemia in chronic kidney disease; N18.31 Chronic kidney disease, stage 3a; I12.9 Hypertensive chronic kidney disease with stage 1 through stage 4 chronic kidney disease, or unspecified chronic kidney disease; E03.9 Hypothyroidism, unspecified; R63.4 Abnormal weight loss; D72.819 Decreased white blood cell count, unspecified; K86.81 Exocrine pancreatic insufficiency; K83.8 Other specified diseases of biliary tract; K86.89 Other specified diseases of pancreas; I25.10 Atherosclerotic heart disease of native coronary artery without angina pectoris; Z95.1 Presence of aortocoronary bypass graft; E78.5 Hyperlipidemia, unspecified; K21.9 Gastro-esophageal reflux disease without esophagitis; K40.90 Unilateral inguinal hernia, without obstruction or gangrene, not specified as recurrent; N40.0 Benign prostatic hyperplasia without lower urinary tract symptoms; R63.0 Anorexia; R68.81 Early satiety; R74.8 Abnormal levels of other serum enzymes; R79.89 Other specified abnormal findings of blood chemistry; Z68.23 Body mass index [BMI] 23.0-23.9, adult; Z79.82 Long term (current) use of aspirin; Z79.890 Hormone replacement therapy; Z79.899 Other long term (current) drug therapy; Z88.0 Allergy status to penicillin; Z90.49 Acquired absence of other specified parts of digestive tract; Z90.89 Acquired absence of other organs
CPT/HCPCS: 88172; 88173; 88305; 74177; 74183; 74330; 76000; 80053; 81003; 81015; 82140; 82248; 82378; 83690; 85025; 85027; 85610; 86301; 86803; 93005; 96360; 99285; A9575; C1769; C2617; Q9967

== ENCOUNTER → 2024-06-24 09:36 | Outpatient (REF) | payer MEDICARE, OTHER, SELFPAY ==
[2024-06-24 12:21] LABS: % Basophils 1.3 % (0-2); % Immature Granulocytes 0.4 % (0-0.5); % Lymphocytes 24.3 % (20.5-51.1); % Monocytes 10.4 % (1.7-9.3); % Neutrophils 55.6 % (42.2-75.2); Absolute Basophils 0.1 10^3/uL (0-0.2); Absolute Eosinophils 0.4 10^3/uL (0-0.7); Absolute Lymphocytes 1.3 10^3/uL (1.2-3.4); Absolute Monocytes 0.6 10^3/uL (0.1-0.6); Absolute Neutrophils 3.1 10^3/uL (1.4-6.5); Hematocrit 34.9 % (39.0-52.0); Hemoglobin 11.5 g/dL (13.0-18.0); Mean Corpuscular Hgb 33.4 pg (27.0-31.0); Mean Corpuscular Volume 101.5 fL (80.0-94.0); Mean Platelet Volume 11.1 fL (7.4-10.4); Nucleated Red Blood Cells % 0 % (-); Platelet Count 310 10^3/uL (130-400); Red Blood Cell Count 3.44 10^6/uL (4.70-6.10); Red Cell Dist. Width 17.2 % (11.5-14.5); White Blood Cell Count 5.5 10^3/uL (4.8-10.8)
[2024-06-24 12:25] LABS: ALT (SGPT) 126 U/L (0-50); AST (SGOT) 97 U/L (17-59); Albumin 4.2 g/dl (3.5-5.0); Alkaline Phosphatase 370 U/L (38-126); Blood Urea Nitrogen 33 mg/dl (9-20); Calcium 9.8 mg/dl (8.4-10.2); Carbon Dioxide 23 mmol/L (22-30); Chloride 104 mmol/L (98-107); Glucose 130 mg/dl (70-99); Potassium 4.6 mmol/L (3.5-5.1); Sodium 143 mmol/L (135-145); Total Bilirubin 2.6 mg/dl (0.2-1.3); Total Protein 7.2 g/dl (6.3-8.2); eGFR > 60.00
[2024-06-27 09:34] LABS: CA 19-9 29 U/mL (<=35)
== END ==
LOC: HWLAB 09:36
PROVIDERS: ATTENDING PHYSICIAN Internal Medicine Hematology & Oncology; FAMILY PHYSICIAN Family Medicine
DX: C25.9 Malignant neoplasm of pancreas, unspecified (principal)
CPT/HCPCS: 36415; 80053; 85025; 86301

== ENCOUNTER → 2024-09-23 16:33 | Outpatient (REF) | payer MEDICARE, OTHER, SELFPAY ==
[2024-09-23 14:08] LABS: % Basophils 1.2 % (0-2); % Eosinophils 3.8 % (0-6); % Immature Granulocytes 0.4 % (0-0.5); % Lymphocytes 20.4 % (20.5-51.1); % Neutrophils 59.2 % (42.2-75.2); Absolute Basophils 0.1 10^3/uL (0-0.2); Absolute Eosinophils 0.2 10^3/uL (0-0.7); Absolute Monocytes 0.8 10^3/uL (0.1-0.6); Hematocrit 33.4 % (39.0-52.0); Hemoglobin 10.7 g/dL (13.0-18.0); Mean Corpuscular Hgb 32.5 pg (27.0-31.0); Mean Corpuscular Volume 101.5 fL (80.0-94.0); Mean Platelet Volume 10.2 fL (7.4-10.4); Platelet Count 207 10^3/uL (130-400); Red Blood Cell Count 3.29 10^6/uL (4.70-6.10); Red Cell Dist. Width 14.8 % (11.5-14.5); White Blood Cell Count 5.1 10^3/uL (4.8-10.8)
[2024-09-23 15:48] LABS: ALT (SGPT) 28 U/L (0-50); AST (SGOT) 27 U/L (17-59); Alkaline Phosphatase 78 U/L (38-126); Blood Urea Nitrogen 25 mg/dl (9-20); Calcium 9.3 mg/dl (8.4-10.2); Carbon Dioxide 23 mmol/L (22-30); Chloride 102 mmol/L (98-107); Glucose 114 mg/dl (70-99); Sodium 137 mmol/L (135-145); Total Bilirubin 0.6 mg/dl (0.2-1.3); Total Protein 6.5 g/dl (6.3-8.2); eGFR 51.77
== END ==
LOC: OIDL 16:33
PROVIDERS: ATTENDING PHYSICIAN Internal Medicine Hematology & Oncology
DX: C25.9 Malignant neoplasm of pancreas, unspecified (principal)
CPT/HCPCS: 80053; 85025

== ENCOUNTER → 2024-09-27 07:35 | Outpatient (REF) | payer MEDICARE, OTHER, SELFPAY ==
[2024-09-27 08:37] VITALS: BP 135/76; BP_SYST 65
[2024-09-27 10:30] VITALS: BP 139/81
== END ==
LOC: RADI 07:35
PROVIDERS: ATTENDING PHYSICIAN Internal Medicine Hematology & Oncology; FAMILY PHYSICIAN Family Medicine
DX: C25.9 Malignant neoplasm of pancreas, unspecified (principal)
CPT/HCPCS: 36561; 76937; 77001; 99152; 99153; C1788

== ENCOUNTER → 2024-10-10 11:52 | Outpatient (REF) | payer MEDICARE, OTHER, SELFPAY ==
[2024-10-10 16:11] LABS: Hematocrit 31.3 % (39.0-52.0); Hemoglobin 10.2 g/dL (13.0-18.0); Mean Corp Hgb Conc. 32.6 g/dL (33.0-37.0); Mean Corpuscular Hgb 31.4 pg (27.0-31.0); Mean Corpuscular Volume 96.3 fL (80.0-94.0); Mean Platelet Volume 11.6 fL (7.4-10.4); Platelet Count 160 10^3/uL (130-400); Red Blood Cell Count 3.25 10^6/uL (4.70-6.10); Red Cell Dist. Width 14.3 % (11.5-14.5); White Blood Cell Count 3.3 10^3/uL (4.8-10.8)
[2024-10-10 16:16] LABS: ALT (SGPT) 27 U/L (0-50); AST (SGOT) 32 U/L (17-59); Albumin 3.8 g/dl (3.5-5.0); Alkaline Phosphatase 72 U/L (38-126); Blood Urea Nitrogen 31 mg/dl (9-20); Calcium 8.9 mg/dl (8.4-10.2); Carbon Dioxide 23 mmol/L (22-30); Chloride 99 mmol/L (98-107); Glucose 134 mg/dl (70-99); Iron 73 ug/dl (49-181); Sodium 131 mmol/L (135-145); Total Bilirubin 0.8 mg/dl (0.2-1.3); Total Protein 6.1 g/dl (6.3-8.2); eGFR > 60.00
[2024-10-10 16:25] LABS: Percent Saturation 21 % (20-50); Total Iron Binding Capacity 335 ug/dl (261-462)
[2024-10-10 16:37] LABS: % Basophils 0.6 % (0-2); % Eosinophils 4.8 % (0-6); % Immature Granulocytes 0.3 % (0-0.5); % Lymphocytes 40.7 % (20.5-51.1); % Monocytes 6.3 % (1.7-9.3); % Neutrophils 47.3 % (42.2-75.2); Absolute Eosinophils 0.2 10^3/uL (0-0.7); Absolute Lymphocytes 1.4 10^3/uL (1.2-3.4); Absolute Monocytes 0.2 10^3/uL (0.1-0.6); Absolute Neutrophils 1.6 10^3/uL (1.4-6.5); Nucleated Red Blood Cells % 0 % (-)
[2024-10-10 17:21] LABS: Folate > 20.0 ng/ml (2.76-20); Vitamin B12 366 pg/ml (239-931)
== END ==
LOC: HWLAB 11:52
PROVIDERS: ATTENDING PHYSICIAN Internal Medicine Hematology & Oncology; FAMILY PHYSICIAN Family Medicine
DX: C25.9 Malignant neoplasm of pancreas, unspecified (principal); I25.10 Atherosclerotic heart disease of native coronary artery without angina pectoris
CPT/HCPCS: 36415; 80053; 82607; 82746; 83540; 83550; 85025

== ENCOUNTER → 2024-10-14 12:59 | Outpatient (REF) | payer MEDICARE, OTHER, SELFPAY ==
[2024-10-14 13:33] LABS: Hematocrit 27.8 % (39.0-52.0); Hemoglobin 9.4 g/dL (13.0-18.0); Mean Corp Hgb Conc. 33.8 g/dL (33.0-37.0); Mean Corpuscular Hgb 32.6 pg (27.0-31.0); Mean Corpuscular Volume 96.5 fL (80.0-94.0); Mean Platelet Volume 10.8 fL (7.4-10.4); Platelet Count 137 10^3/uL (130-400); Red Blood Cell Count 2.88 10^6/uL (4.70-6.10); Red Cell Dist. Width 14.7 % (11.5-14.5); White Blood Cell Count 1.4 10^3/uL (4.8-10.8)
[2024-10-14 13:54] LABS: ALT (SGPT) 32 U/L (0-50); AST (SGOT) 30 U/L (17-59); Albumin 3.6 g/dl (3.5-5.0); Alkaline Phosphatase 82 U/L (38-126); Blood Urea Nitrogen 22 mg/dl (9-20); Calcium 8.9 mg/dl (8.4-10.2); Carbon Dioxide 23 mmol/L (22-30); Chloride 98 mmol/L (98-107); Glucose 126 mg/dl (70-99); Potassium 3.9 mmol/L (3.5-5.1); Sodium 132 mmol/L (135-145); Total Bilirubin 0.8 mg/dl (0.2-1.3); Total Protein 5.9 g/dl (6.3-8.2); eGFR > 60.00
[2024-10-14 14:24] LABS: Absolute Neutrophils -Man Diff 0.4 10^3/uL (1.4-6.5); Band Neutrophils 0 % (0-3); Eosinophils 2 % (0-6); Lymphocytes 50 % (20-51); Monocytes 15 % (2-9); Segmented Neutrophils 33 % (42-75)
[2024-10-14 14:25] LABS: Normal RBC Morphology Yes; Platelets Checked Yes; Total Cells Counted 100
[2024-10-14 14:54] LABS: Ferritin 81.5 ng/ml (17.9-464.0)
== END ==
LOC: OIDL 12:59
PROVIDERS: ATTENDING PHYSICIAN Internal Medicine Hematology & Oncology
DX: C25.9 Malignant neoplasm of pancreas, unspecified (principal); D64.9 Anemia, unspecified; R53.83 Other fatigue
CPT/HCPCS: 80053; 82728; 85025

== ENCOUNTER → 2024-10-21 08:39 | Outpatient (REF) | payer MEDICARE, OTHER, SELFPAY ==
[2024-10-21 11:31] LABS: % Basophils 0.6 % (0-2); % Eosinophils 2.3 % (0-6); % Immature Granulocytes 2.8 % (0-0.5); % Lymphocytes 20.5 % (20.5-51.1); % Monocytes 9.2 % (1.7-9.3); % Neutrophils 64.6 % (42.2-75.2); Absolute Basophils 0.1 10^3/uL (0-0.2); Absolute Eosinophils 0.2 10^3/uL (0-0.7); Absolute Immature Granulocytes 0.3 10^3/uL (0-0.05); Absolute Monocytes 0.9 10^3/uL (0.1-0.6); Absolute Neutrophils 6.1 10^3/uL (1.4-6.5); Hematocrit 32.7 % (39.0-52.0); Hemoglobin 10.4 g/dL (13.0-18.0); Mean Corp Hgb Conc. 31.8 g/dL (33.0-37.0); Mean Corpuscular Volume 100.6 fL (80.0-94.0); Mean Platelet Volume 9.7 fL (7.4-10.4); Nucleated Red Blood Cells % 0 % (-); Platelet Count 509 10^3/uL (130-400); Red Blood Cell Count 3.25 10^6/uL (4.70-6.10); White Blood Cell Count 9.5 10^3/uL (4.8-10.8)
[2024-10-21 12:35] LABS: ALT (SGPT) 37 U/L (0-50); AST (SGOT) 31 U/L (17-59); Alkaline Phosphatase 139 U/L (38-126); Blood Urea Nitrogen 25 mg/dl (9-20); Calcium 9.3 mg/dl (8.4-10.2); Carbon Dioxide 21 mmol/L (22-30); Chloride 103 mmol/L (98-107); Glucose 119 mg/dl (70-99); Potassium 4.2 mmol/L (3.5-5.1); Sodium 137 mmol/L (135-145); Total Bilirubin 0.6 mg/dl (0.2-1.3); Total Protein 6.6 g/dl (6.3-8.2); eGFR 56.58
== END ==
LOC: HWLAB 08:39
PROVIDERS: ATTENDING PHYSICIAN Internal Medicine Hematology & Oncology; FAMILY PHYSICIAN Family Medicine
DX: C25.9 Malignant neoplasm of pancreas, unspecified (principal)
CPT/HCPCS: 36415; 80053; 85025

== ENCOUNTER → 2024-11-04 09:14 | Outpatient (REF) | payer MEDICARE, OTHER, SELFPAY ==
[2024-11-04 11:53] LABS: Hematocrit 30.3 % (39.0-52.0); Mean Corpuscular Hgb 33.2 pg (27.0-31.0); Mean Corpuscular Volume 100.7 fL (80.0-94.0); Mean Platelet Volume 11.4 fL (7.4-10.4); Platelet Count 138 10^3/uL (130-400); Red Blood Cell Count 3.01 10^6/uL (4.70-6.10); Red Cell Dist. Width 18.5 % (11.5-14.5); White Blood Cell Count 48.9 10^3/uL (4.8-10.8)
[2024-11-04 12:15] LABS: ALT (SGPT) 25 U/L (0-50); AST (SGOT) 33 U/L (17-59); Albumin 3.6 g/dl (3.5-5.0); Alkaline Phosphatase 235 U/L (38-126); Blood Urea Nitrogen 24 mg/dl (9-20); Calcium 8.9 mg/dl (8.4-10.2); Carbon Dioxide 20 mmol/L (22-30); Chloride 101 mmol/L (98-107); Glucose 125 mg/dl (70-99); Potassium 3.2 mmol/L (3.5-5.1); Sodium 135 mmol/L (135-145); Total Bilirubin 0.6 mg/dl (0.2-1.3); Total Protein 5.6 g/dl (6.3-8.2); eGFR > 60.00
[2024-11-04 12:22] LABS: Anisocytosis 1+; Band Neutrophils 6 % (0-3); Eosinophils 2 % (0-6); Lymphocytes 6 % (20-51); Metamyelocytes 4 % (-); Monocytes 3 % (2-9); Myelocytes 1 % (-); Normal RBC Morphology No; Platelets Checked Yes; Polychromasia Slight; Segmented Neutrophils 78 % (42-75); Total Cells Counted 100
== END ==
LOC: OIDL 09:14
PROVIDERS: ATTENDING PHYSICIAN Nurse Practitioner Adult Health; FAMILY PHYSICIAN Family Medicine
DX: C25.9 Malignant neoplasm of pancreas, unspecified (principal)
CPT/HCPCS: 36415; 80053; 85025

== ENCOUNTER 2024-11-12 23:33 | Inpatient (IN) | payer MEDICARE, OTHER, SELFPAY ==
[2024-11-12 21:08] VITALS: BP 124/76
[2024-11-12 21:09] VITALS: BP 124/76
--- NOTE | 2024-11-12 21:18 | ED.GENMED ---
History of Present Illness
General
Chief Complaint: Weakness
Time Seen by Provider: 11/12/24 21:17
History of Present Illness
History of Present Illness:
TIME OF INITIAL ENCOUNTER: 9:30 PM
HPI: The patient came here by private vehicle as family is very concerned about his overall appearance. He has known pancreatic cancer and had a Whipple at [place] 3 months ago. He gets his cancer care with Dr. Guzman here at [facility]. He has
had diarrhea and an episode of vomiting earlier today. Family was concerned because he appeared tremendously weak and could barely eat or drink anything. He last had chemo 1 week ago. Family thinks he received shots 'affects his white and red
cells'.
EXAM:
GENERAL: The patient is ill-appearing, he primarily keeps his eyes closed
HEENT: Very dry oral mucosa
CARDIOVASCULAR: No murmurs, tachycardic heart rate, regular rhythm, No chest wall tenderness, port noted in the right anterior chest wall
PULMONARY: No respiratory distress, breath sounds are clear and equal
ABDOMEN: Soft with no peritoneal signs, no tenderness
NEUROLOGIC: Fair strength all extremities, no coordination deficits
PSYCHIATRIC: Although he is ill in appearance, he is answering questions appropriately and has appropriate mental status, normal insight and judgement
EXTREMITIES: Nontender, no edema, moves all extremities equally
SKIN: No rash, no lesions
NUMBER AND COMPLEXITY OF PROBLEMS ADDRESSED AT THE ENCOUNTER
� Chronic conditions affecting care: CAD, high blood pressure, pancreatic cancer, CKD
� Acute Exacerbation and/or Progression of Chronic Illness: This is an acute problem
� Differential Diagnosis includes: Neutropenic fever, sepsis, bacteremia, UTI, pyelonephritis, infectious diarrhea, FRANCESCA
AMOUNT AND/OR COMPLEXITY OF DATA TO BE REVIEWED AND ANALYZED
� I performed an independent evaluation of and my interpretation is:
EKG: Sinus 117, left axis deviation, PVCs, no acute ST abnormality
CT:
X-rays: No definite abnormality on chest x-ray
Laboratory Studies: White count is 0.2, neutrophils undetected, bicarb is 12, creatinine 1.1, glucose is 272, lactic is 5.1, urinalysis shows no clear evidence of UTI
Other:
� Review of other/old records: The patient was admitted here with obstructive jaundice 5 months ago. He had port placed by IR 6 weeks ago.
� Clinical information was obtained by an independent historian: I spoke to children and at bedside
� Prescriptions/Medications Considered but not given:
� Further testing considered but not performed:
RISK OF COMPLICATIONS AND/OR MORBIDITY OR MORTALITY OF PATIENT MANAGEMENT
� Social determinants of health affecting care: Lives at home
� Discussion with other providers: Dr. Arias for admission at 10:19 PM
� Escalation of care including admission/observation vs risk of discharge considered: The patient arrived ill-appearing, tachycardic, eyes closed, very dehydrated. He was found to be febrile to 100.4 �F and had virtually no
neutrophils. Broad-spectrum antibiotics given. His lactic is elevated and he received 30 mL/kg of fluids.
ANY OTHER UPDATES:
The patient was given 2 L of IV fluids.
10:20 PM on reassessment: He is overall improved.
Past History
Past History
ED Past Medical History: HTN
ED Past Surgical History: Appendectomy and Cholecystectomy
Social History
Tobacco: Non-smoker
Alcohol: None
Drug: None
Personal:
Living: with family
Phy Exam
Physical Exam
Physical Exam:
See HPI
Course
Orders/Labs/Results
Orders:
Orders
11/12/24 21:13
Electrocardiogram (*1) Urgent
Reason for Study: Tachycardia
EKG- Treatment ONCE
11/12/24 21:17
Type And Crossmatch [Type+Screen] Urgent
Complete Blood Count/With Diff Urgent
Comprehensive Metabolic Panel Urgent
11/12/24 21:19
0.9% Sodium Chloride 1000 ml [Nss] 1,000 ml IV BOLUS
11/12/24 21:20
Acetaminophen [Tylenol] 1,000 mg PO NOW STA
CR Chest Portable - 1 View Urgent
Comment:
Reason For Exam: fever FTT
Reason Study Needs to be Portable: Patient Unstable
11/12/24 21:22
Lactic Acid Q4H
Comment: CANCEL 2nd LACTIC ACID IF 1st LACTIC ACID IS LESS THAN 2
Blood Culture Q30M
ÁNGELA Source: Blood/Venous
Specimen Description:
Blood Culture Q30M
ÁNGELA Source: Blood/Venous
Specimen Description:
11/12/24 21:42
Cefepime HCl [Maxipime] 1,000 mg IV NOW STA
Vancomycin [Vancocin] 1,500 mg 0.9% Sodium Chloride 500 ml [Nss] 500 ml IV NOW
11/12/24 21:52
0.9% Sodium Chloride 1000 ml [Nss] 1,000 ml IV BOLUS
11/12/24 22:11
Urinalysis Reflex To Culture Urgent
Date Specimen was Collected: 11/12/24
Time Specimen was Collected: 21:23
Urine Microscopic Reflex Cult Urgent
11/12/24 22:27
COVID-19 Antigen Urgent
Source: Nasal Swab
Influenza A+B Rapid Molecular Urgent
ÁNGELA Source: Nasal Swab
Specimen Description:
11/12/24 22:42
Norovirus by PCR Routine
ÁNGELA Source: Feces/Stool
Specimen Description:
STOOL [C difficile Antigen & Toxins] Routine
ÁNGELA Source: Feces/Stool
Specimen Description:
Stool Culture Routine
ÁNGELA Source: Feces/Stool
Specimen Description:
Stool For WBC Routine
ÁNGELA Source: Feces/Stool
Specimen Description:
11/12/24 23:00
Flush (0.9% Sodium Chloride) [Flush (Nss)] See Dose Instructions IV PER PROTOCOL
11/12/24 23:02
MRSA Screen Routine
ÁNGELA Source: Nose
Specimen Description:
11/12/24 23:33
Admit/Transfer Patient As Directed
Co-Sign Provider:
Level of Care: Inpatient admission
Assign to:: ICU
Physician / Group: nati arias
Diagnosis: Neutropenic fever, septic shock, pancreatic CA
Reason for Hospitalization: Neutropenic fever, septic shock, pancreatic CA
Expected length of stay greater than two midnights?: Yes
ELOS- Estimated Length of Stay in days: 5
I certify the patient meets the requirements for IP care: Yes
Code Status As Directed
Resuscitation Status: Full Code
Cefepime HCl [Maxipime] 1,000 mg IV NOW STA
11/12/24 23:38
Sterile Water [Sterile Water For Injection] 10 ml IV NOW STA
11/12/24 23:40
PRN Pain Medication Management As Directed
May give lesser potent ordered pain med per pt: Yes
preference::
Protocol:: Medication orders for pain may be administered in a
manner that supports deferring to patient preference
when the pt is:
- Requesting an ordered lesser potent pain medication.
Least to most potent pain medications are defined
as: acetaminophen < NSAID < tramadol < opioids
(morphine, oxycodone, hydromorphone).
- Requesting a lesser dose of the same medication IF
ORDERED.
- Requesting a less intrusive route of administration
if both routes are prescribed by the provider (PO <
IV).
11/12/24 23:45
Lactated Ringers [Lr] 1,000 ml IV 1,000 mls/hr
NORepinephrine 4 MG/250 ML [Levophed] 4 mg in 250 ml IV PER PROTOCOL
Initial dose in mcg/min, then titrate:: 2
Titrate to keep:: MAP > 65 mmHg
Titrate by mcg/min:: 1-2 mcg/min
Frequency of titrations (minutes):: 5
Maximum dose in ICU in mcg/min:: 30
Maximum dose in IMU in mcg/min:: 8
Maximum dose in IVU in mcg/min:: 4
Begin to taper infusion when:: Remained at goal for 4hrs
Taper by mcg/min:: 1-2 mcg/min
Frequency of taper (minutes) if patient maintains goal:: 30
Taper to off?: Yes
If infusion off & no longer maintaining goal:: Contact Provider
11/13/24 01:30
Lactic Acid Q4H
Comment: CANCEL 2nd LACTIC ACID IF 1st LACTIC ACID IS LESS THAN 2
11/13/24 06:00
TSH Reflex To Free T4 IN AM
Abnormal Lab Results
11/12/24 11/12/24 11/12/24
21:17 21:22 22:11
WBC 0.2 L* 10^3/uL
(4.8-10.8)
RBC 2.58 L 10^6/uL
(4.70-6.10)
Hgb 8.5 L g/dL
(13.0-18.0)
Hct 26.5 L %
(39.0-52.0)
MCV 102.7 H fL
(80.0-94.0)
MCH 32.9 H pg
(27.0-31.0)
MCHC 32.1 L g/dL
(33.0-37.0)
RDW 18.4 H %
(11.5-14.5)
Plt Count 119 L 10^3/uL
(130-400)
MPV 11.4 H fL
(7.4-10.4)
Absolute Neuts (auto) 0.0 L* 10^3/uL
(1.4-6.5)
Absolute Lymphs (auto) 0.1 L 10^3/uL
(1.2-3.4)
Absolute Monos (auto) 0.0 L 10^3/uL
(0.1-0.6)
Neutrophils % 15.0 L %
(42.2-75.2)
Lymphocytes % 70.0 H %
(20.5-51.1)
Monocytes % 15.0 H %
(1.7-9.3)
Sodium 131 L mmol/L
(135-145)
Carbon Dioxide 12 L* mmol/L
(22-30)
BUN 37 H mg/dl
(9-20)
Glucose 272 H mg/dl
(70-99)
Lactic Acid 5.1 H* mmol/L
(0.7-2.0)
Alkaline Phosphatase 140 H U/L
(38-126)
Total Protein 5.6 L g/dl
(6.3-8.2)
Urine Bacteria (Reflex) Few A
(Negative)
Urine Glucose 3+ A
(Negative)
Urine Albumin (Reflex) 2+ A
(Neg - Trace)
11/12/24 21:17
11/12/24 21:17
Vital Signs
Initial and Last Documented VS:
Initial Vital Signs
BP
124/76
11/12/24 21:08
Last Documented Vital Signs
Temp Pulse Resp BP Pulse Ox
37.3 C 95 23 89/49 100
11/12/24 23:05 11/12/24 23:00 11/12/24 23:00 11/12/24 23:00 11/12/24 23:00
*Critical Care Note
Total Time (30-74mins, 75-104mins- exclusive of procedures): Not Applicable
ED Attending Note
-
Portions of this chart may have been created with voice recognition software.� Occasional wrong word or��sound alike� substitutions may have occurred due to the inherent limitations of voice recognition software.
Discharge Plan
Departure
Patient Disposition: Admit
Date of Disposition: 11/12/24
Time of Disposition: 22:20
Presentation/result/management discussed w/ accepting MD/DO: Hospitalist
Discharge Problem:
Neutropenic fever
Prescriptions:
No Action
aspirin 81 MG tablet,delayed release (DR/EC)
81 mg PO DAILY
levothyroxine 50 mcg Tablet
50 mcg PO DAILY
simvastatin 20 mg Tablet
20 mg PO QPM
metoprolol tartrate 25 mg Tablet
12.5 mg PO BID
cholecalciferol (vitamin D3) [Vitamin D3] 50 mcg (2,000 unit) Tablet
50 mcg PO DAILY
sennosides [senna] 8.6 mg Tablet
8.6 mg PO DAILY
Creon 24,000-76,000 -120,000 unit Capsule,Delayed Release(Dr/Ec)
1 cap PO AC
prednisone 10 mg Tablet
10 mg PO DAILYPRN PRN (Reason: TAKE ON 4TH,5TH AND 6TH DAY AFTER CHEMO)
Oxaliplatin
1 dose IV Q2W
fluorouracil
1 dose IV Q2W
leucovorin calcium
1 dose IV Q2W
Referrals:
Bhanu Isaacs DO [Family Provider] -
Interventions
Interventions:
*Risk Screen - Suicide Last Done: 11/12/24 21:09
*General Assessment Last Done: 11/12/24 21:09
*Neglect/Abuse Screening Last Done: 11/12/24 21:09
*ED- Fall Risk Assessment Last Done: 11/12/24 21:26
*ED COVID-19 Vaccine History Last Done: 11/12/24 21:26
ED- Cardiac Assessment Last Done: 11/12/24 21:26
ED- Neurological Assessment Last Done: 11/12/24 21:26
ED- Pulmonary Assessment Last Done: 11/12/24 21:26
Discharge Date and Time
Print Language: KISWAHILI
[2024-11-12 21:25] VITALS: BMI 21.1
[2024-11-12] MEDS: NSS 1000 IV ×2 (21:29→22:10)
[2024-11-12] MEDS: TYLENOL 1000 MG PO (21:32)
[2024-11-12 21:43] LABS: Hematocrit 26.5 % (39.0-52.0); Hemoglobin 8.5 g/dL (13.0-18.0); Mean Corp Hgb Conc. 32.1 g/dL (33.0-37.0); Mean Corpuscular Hgb 32.9 pg (27.0-31.0); Mean Corpuscular Volume 102.7 fL (80.0-94.0); Mean Platelet Volume 11.4 fL (7.4-10.4); Platelet Count 119 10^3/uL (130-400); Red Blood Cell Count 2.58 10^6/uL (4.70-6.10); Red Cell Dist. Width 18.4 % (11.5-14.5); White Blood Cell Count 0.2 10^3/uL (4.8-10.8)
[2024-11-12 21:49] LABS: AST (SGOT) 22 U/L (17-59); Albumin 3.6 g/dl (3.5-5.0); Alkaline Phosphatase 140 U/L (38-126); Blood Urea Nitrogen 37 mg/dl (9-20); Calcium 8.6 mg/dl (8.4-10.2); Carbon Dioxide 12 mmol/L (22-30); Chloride 101 mmol/L (98-107); Estimated Creatinine Clearance 46 ml/min; Glucose 272 mg/dl (70-99); Potassium 4.1 mmol/L (3.5-5.1); Sodium 131 mmol/L (135-145); Total Protein 5.6 g/dl (6.3-8.2); eGFR > 60.00
[2024-11-12 21:51] LABS: Lactic Acid 5.1 mmol/L (0.7-2.0)
[2024-11-12 21:55] LABS: ALT (SGPT) < 30 U/L (0-50)
[2024-11-12 22:00] VITALS: BP 111/61
[2024-11-12] MEDS: MAXIPIME 1000 MG IV (22:07)
[2024-11-12] MEDS: VANCOCIN 530 MG IV (22:08)
[2024-11-12 22:09] LABS: Absolute Lymphocytes 0.1 10^3/uL (1.2-3.4); Nucleated Red Blood Cells % 0 % (-)
[2024-11-12 22:27] LABS: Urine Albumin 2+ (Neg - Trace); Urine Bilirubin Negative (Negative); Urine Character Clear (Clear); Urine Color Yellow; Urine Glucose 3+ (Negative); Urine Ketone Negative (Negative); Urine Leukocyte Negative (Negative); Urine Nitrite Negative (Negative); Urine Occult Blood Negative (Negative); Urine Specific Gravity 1.015 (<1.030); Urine Urobilinogen Negative (Neg - 1+)
--- NOTE | 2024-11-12 22:40 | HPS.HSE ---
Family Physician
-
Family Physician: Bhanu Isaacs
Chief Complaint
-
Weakness, decreased appetite, dizziness, 1 episode diarrhea, 1 episode of vomiting
History of Present Illness
78-year-old male to ER by family's private vehicle concerned about his appearance. He has known pancreatic cancer status post Whipple at [facility] 3 months ago. He currently gets care with Dr. Guzman at [facility]. He has had
diarrhea brown pudding-like and an episode of vomiting earlier today he has been tremendously weak, dizzy and is barely eating and drinking. He is status post chemo 1 week ago. He typically gets chemo every 2 weeks gets 2 injections of Oxalipatin,
leuovorin on day 1 then infusion for 2 days of fluorouracil he finished on he believes he received colonizing stimulating factor on . He then starts his prednisone on the fourth fifth and 6 days after chemo he is due to start
tomorrow 11/13/2024 until 11/15/2024. His family at bedside including Ronit and son Phani that lives with him states they have not been sick recently however they will go home and test for COVID flu a and flu B. His labs are showing severe febrile
neutropenia with absolute neutrophils of 0, temp 100.4 F, pancytopenia. Patient has past medical history of HTN, HLD, pancreatic CA stage II on chemo every 2 weeks started October 02 last chemo 11/07, last fluorouracil CAD status post CABG x 5
vessel approximately 12 years ago, HTN, HLD, hypothyroidism, cholecystectomy, tonsillectomy, appendectomy, cholecystectomy
Medical History
Past Medical History
Past Medical History: Reports Other
Additional Past Medical History:
HTN
HLD
pancreatic CA stage II on chemo every 2 weeks started October 02 last chemo 11/07, last fluorouracil
Status post Whipple 08/06/2024
CAD status post CABG x 5 vessel approximately 12 years ago
hypothyroidism
Past Surgical History: Reports Other
Additional Past Surgical History:
Status post Whipple 08/06/2024
cholecystectomy
tonsillectomy
appendectomy
cholecystectomy
Social History
Tobacco: Non-smoker
Alcohol: None
Drug: None
Personal:
Living: With Family ( and son phani)
Employment: Retired
Family History
Family History: Other ( Mother age 97 CVA, [place], father CHF HTN age 66, 1 brother age 30s renal disease)
Allergies / Home Medications
Allergies reflects when Allergies were last updated in [employer].
Home Medications with original date entered in [employer]
Allergy/Medication List:
Allergies
Allergy/AdvReac Type Severity Reaction Status Date / Time
Penicillins Allergy Unknown Verified 11/12/24 21:09
Home Medications
aspirin 81 mg tablet,delayed release 81 mg PO DAILY Blood Clot Prevention/Tx 05/08/12
cholecalciferol (vitamin D3) 50 mcg (2,000 unit) tablet (Vitamin D3) 50 mcg PO DAILY Supplement 06/06/24
levothyroxine 50 mcg tablet 50 mcg PO DAILY Thyroid 06/06/24
metoprolol tartrate 25 mg tablet 12.5 mg PO BID Blood Pressure 06/06/24
simvastatin 20 mg tablet 20 mg PO QPM High Cholesterol 06/06/24
[id number] 24,000-76,000-120,000 unit capsule,delayed rel (Creon) 1 cap PO AC 09/24/24
sennosides 8.6 mg tablet (senna) 8.6 mg PO DAILY 09/24/24
Oxaliplatin 1 dose IV Q2W 11/12/24
fluorouracil 1 dose IV Q2W 11/12/24
leucovorin calcium 1 dose IV Q2W 11/12/24
prednisone 10 mg tablet 10 mg PO DAILYPRN PRN TAKE ON 4TH,5TH AND 6TH DAY AFTER CHEMO 11/12/24
Review of Systems
-
History Source: Patient and Family ( son and [id number] at bedside)
A 12 point ROS was completed and negative except as noted: Yes
Constitutional: Reports Fever, Fatigue and Chills
EENT: Denies Sore Throat or Runny Nose
Respiratory: Denies Cough or Trouble Breathing
Cardiac: Denies Chest Pain, Diaphoresis, Palpitations or Syncope
Abdomen/GI: Reports Nausea, Vomiting (X 1) and Diarrhea (X 1 pudding-like brown); Denies Abdominal Pain, Constipated, Bloody Stools or Black Stools
: Denies Dysuria, Frequency, Flank Pain, Incontinence or Difficulty Voiding
Musculoskeletal: Reports Muscle Pain (Muscle aches); Denies Joint Pain or Edema
Skin: Reports Other (Port present right upper chest wall); Denies Itching or Rash
Neurological: Reports Dizzy; Denies Headache or Weakness
Endocrine: Reports No Symptoms
Hematologic/Lymphatic: Reports No Symptoms
Psych: Reports Calm
Physical Exam
Vital Signs
Vital Signs
Temp Pulse Resp BP Pulse Ox
100.4 F H 123 18 111/61 99
11/12/24 21:09 11/12/24 22:15 11/12/24 21:10 11/12/24 22:00 11/12/24 22:15
Physical Exam
General: Comfortable, Conversant, Fever and Chills
HEENT: NormoCephalic, Anicteric, PERRLA, [place] Conjunctivae, No Ptosis and Other (Dry oral mucosa)
Respiratory: Clear; No Wheezes, Rales or Rhonchi
Cardiac: S1/S2 and Regular Rhythm; No Murmur, Rub, Gallop or Peripheral Edema
Breast: Deferred by me
GI: Soft, Non Tender, Non Distended and Normal Bowel Sounds
Genito-urinary: Deferred by me
Musculoskeletal: No Clubbing, No Cyanosis and No Edema
Skin: Warm, Dry and Other (Port right upper chest wall); No Rash or Jaundice
Neuro: AO x 3, No Motor Deficits, Nonfocal/grossly intact, Cranial Nerves Intact and No Sensory Deficits; No Slurred Speech, Facial Droop, Tremors or Sedated
Psych: Calm
Laboratory Results
-
11/12/24 21:17
11/12/24 21:17
Laboratory Results
Lactic Acid 5.1 mmol/L (0.7-2.0) H* 11/12/24 21:22
Total Bilirubin 1.0 mg/dl (0.2-1.3) 11/12/24 21:17
AST 22 U/L (17-59) 11/12/24 21:17
ALT < 30 U/L (0-50) 11/12/24 21:17
Alkaline Phosphatase 140 U/L (38-126) H 11/12/24 21:17
Data Reviewed
-
Diagnostic Radiology: Report Reviewed by me
Lab Data: Labs Reviewed by me
Impression/Plan
-
Impression/plan:
Admit to ICU
#Septic shock unclear etiology
#Acute neutropenic fever status post chemo 1 week ago pancreatic cancer
#Acute pancytopenia
Absolute neutrophils 0, temp 100.4 F, 99% RA, HR 123, BP 111/61
Hgb 8.5, PLT 119
BP 111/61> 89/49
-IV Levophed
-IV NSS 2 L given in ER
-LR 1000
-IV LR 80 cc an hour
UA negative, CXR pending, COVID/flu negative blood cultures x 2
-Neutropenic precautions
-Check nasal MRSA
-Consult Oncology
-Consult ID
-Tylenol 1000 mg given in ER for temp 100.4
-IV cefepime 2 g every 8 neutropenic fever
-IV vancomycin
-Follow CBC, CMP, lactic acid
#Pancreatic cancer stage II 1 lymph node positive Dx May 2024 on current chemo
-Status post Whipple August 06 2024 [facility]
May 2024 admit MRCP found CBD dilation with concern for intrabiliary or pancreatic neoplasm obstructing CBD and pancreatic duct, s/p ERCP on 06/10/24 with biopsy and plastic stent
-Continue Creon 1 capsule p.o. AC
-Port right upper chest wall
Chemo regimen below:
-Fluorouracil 1 dose IV every 2 weeks last infusion 11/07/2024, 11/08, 11/09 # day home infusion
-Leucovorin calcium 1 dose IV every 2 weeks last dose 11/07/2024
-Oxaliplatin 1 dose IV every 2 weeks 11/07/2024
-Patient states he gets colonizing stimulating factor injection on the third day after chemo he should have had on 11/09/2024
-Continue prednisone 10 mg starting tomorrow 11/13, 11/14, 11/15 as part of chemo protocol
#CAD status post CABG x 5 vessel 12 years ago
-Continue aspirin 81 mg daily, HOLD metoprolol tartrate 12.5 mg twice daily
#HTN
-HOLD metoprolol 12.5 mg twice daily with hold parameters
#HLD
-Continue simvastatin 20 mg every afternoon
#Hypothyroidism
-Continue levothyroxine 50 mcg p.o. daily
-Check TSH with free T4 reflex
#cholecystectomy hx
DVT prophylaxis
-Subcu Lovenox
Full code per patient with , son and [id number] at bedside
[2024-11-12 22:56] LABS: COVID-19 Antigen Negative (Negative)
[2024-11-12 22:57] LABS: Urine Granular Cast 0-2 /LPF (0); Urine Hyaline Cast 0-2 /LPF (0-2); Urine Red Blood Cell 0-2 /HPF (0-2); Urine Squamous Cell 0-2 /LPF (Few)
[2024-11-12 22:58] LABS: Urine Bacteria Few (Negative)
[2024-11-12 23:00] VITALS: BP 89/49
--- NOTE | 2024-11-12 23:06 | W.PN.UPDATE ---
Update Note
Progress Note Update
Patient seen in conjunction with SIL. I agree with the findings on history and physical. I concur with the assessment and plan unless stated otherwise.
Briefly, patient is a 78-year-old male with past medical history of 1 diagnosis of pancreatic cancer a few months ago status post Whipple at [place], currently on chemotherapy through [facility] status post 3 cycles with the last infusion 1 week ago
presents to the emergency department with sudden CVA weakness.
Patient reported doing well up until Monday evening when he started noticing weakness. Throughout that time he he denied having any fevers at home. He denies any cough. He denies feeling short of breath. He denies any chest pain. Patient and
family reported 1 episode of large voluminous diarrhea but no nausea or vomiting. He has not had any diarrhea since. He denies any abdominal pain. Patient denies any skin findings including rash, he denies any joint swelling or erythema or
tenderness. He denies any headaches. Patient denies any known sick contacts. Patient denies any flank pain, dysuria or hematuria. He denies any urinary frequency. He was brought into the emergency department due to worsening weakness.
In the emergency department he had a temp of 100.4, he was tachycardic to 103 with a blood pressure of 111/61, ECG shows sinus tachycardia at 112 4 occasional PVCs. LA WBCs with 0 hemoglobin 8.5, platelet 119. Electrolytes notable for a sodium of
131 and a bicarb of 12 with an anion gap of 18. BUN was 37 with a creatinine of 1.1 and a glucose of 270. Patient had lactic acid of 5.1. Chest x-ray was clear, UA was negative, COVID and flu were negative.
After receiving IV fluids in the ED, he is now alert and oriented x 3. Is maintaining his blood pressure at 111/61. He looks dry but otherwise is well-appearing and in no acute distress. The port site was unremarkable. He has no cellulitis and
no evidence of any joint inflammation.
Assessment and plan
Neutropenic fever�source unknown but patient with undetectable ANC is status post oxaliplatin, fluorouracil with leucovorin rescue 1 week ago. Unclear if he received any neupogen
- admit to imu for sepsis w/o shock
- s/p 2 L bolus, bolus additional LR now,
- continue with LR overnight
- pressors if MAP < 65
- monitor lactic acid per protocol
- blood and urine cultures sent, xray clear
- viral panel negative
- Continue cefepime for neutropenic fever
- continue vanc pending mrsa swab
- monitor for recurrent diarrhea
- ID consult
- Oncology consult
DVT PPX - lovenox sq
Code status - Full Code
[2024-11-13] VITALS (33 sets, daily range): BP systolic 89–155; BP diastolic 46–84; BMI 20.9
[2024-11-13] MEDS: LR 1000 IV ×3 (00:07→14:18)
[2024-11-13] MEDS: MAXIPIME 1000 MG IV (00:12)
[2024-11-13] MEDS: STERILE WATER FOR INJECTION 10 ML IV ×4 (00:13→23:24)
[2024-11-13] MEDS: LEVOPHED 250 IV (00:17)
--- NOTE | 2024-11-13 01:20 | PTCARENOTE ---
pt adm to ICU from ER, aaox3, denies pain; afebrile. SR occ pvcs, HR [id number]. B/L IV WNL- Levo/IVF infusing per work list. RCW port present - not accessed. RA Sat 100%. CHG cloths, POC discussed, call [facility] with pt.
--- NOTE | 2024-11-13 02:37 | W.PN.SEPSIS ---
Sepsis
Vital Signs
Temp Pulse Resp BP Pulse Ox
97.9 F 90 26 104/50 100
11/13/24 01:38 11/13/24 02:00 11/13/24 02:00 11/13/24 02:00 11/13/24 01:45
Physical Exam
Physical Exam:
A focused exam was performed after fluid resuscitation.
Capillary Refill
Bilateral Upper Extremity:
Odalis Time: Less than 3 sec
Bilateral Lower Extremity:
Odalis Time: Less than 3 sec
Pulse Evaluation
Bilateral Radial:
Pulse Evaluation: Present
Bilateral Dorsalis Pedis:
Pulse Evaluation: Present
[2024-11-13 04:56] LABS: Glucose - Point of Care 99 mg/dl (70-99)
[2024-11-13 05:39] LABS: ALT (SGPT) 17 U/L (0-50); AST (SGOT) 17 U/L (17-59); Alkaline Phosphatase 124 U/L (38-126); Blood Urea Nitrogen 29 mg/dl (9-20); Calcium 8.1 mg/dl (8.4-10.2); Carbon Dioxide 16 mmol/L (22-30); Chloride 106 mmol/L (98-107); Estimated Creatinine Clearance 56 ml/min; Glucose 142 mg/dl (70-99); Magnesium 1.5 mg/dl (1.6-2.3); Potassium 3.9 mmol/L (3.5-5.1); Sodium 134 mmol/L (135-145); Total Protein 5.1 g/dl (6.3-8.2); eGFR > 60.00
[2024-11-13] MEDS: SYNTHROID 50 MCG PO (05:42)
[2024-11-13 05:44] LABS: Hematocrit 23.1 % (39.0-52.0); Hemoglobin 7.8 g/dL (13.0-18.0); Mean Corp Hgb Conc. 33.8 g/dL (33.0-37.0); Mean Corpuscular Hgb 33.5 pg (27.0-31.0); Mean Corpuscular Volume 99.1 fL (80.0-94.0); Mean Platelet Volume 11.8 fL (7.4-10.4); Platelet Count 102 10^3/uL (130-400); Red Blood Cell Count 2.33 10^6/uL (4.70-6.10); Red Cell Dist. Width 18.3 % (11.5-14.5); White Blood Cell Count 0.6 10^3/uL (4.8-10.8)
[2024-11-13 05:45] LABS: Lactic Acid 2.3 mmol/L (0.7-2.0)
[2024-11-13 06:11] LABS: TSH Reflex To Free T4 1.53 uIU/ml (0.47-4.68)
[2024-11-13 06:38] LABS: INR 1.28; PT 16.3 Sec (11.4-14.6)
[2024-11-13 06:39] LABS: APTT 29.1 Sec (23.4-35.0)
--- NOTE | 2024-11-13 07:04 | CON.INTV ---
Addendum entered and electronically signed by Eddi Kaufman MD 11/13/24 14:50:
- Patient stable for transfer out of ICU
-Weave Defect Charting Clerk service will sign off, please consult as needed
Original Note:
Consultation
Consultation Request
Date/Time Consultation Requested: 11/14/2023
Date/Time Consultation Performed: 11/14/2023 7 am
Requesting Provider: Shabana Hills
Performing Provider: Eddi Kaufman
Reason for Consultation: Sepsis
Medical History
-
Chief Complaint: Generalized weakness post pancreatic cancer surgery
History of Present Illness:
78-year-old male was brought to ER due to generalized weakness. He has known pancreatic cancer status post Whipple at [facility] 3 months ago. He currently gets care with Dr. Guzman at [facility]. He has had diarrhea lately
which is brown pudding-like and an episode of vomiting earlier on the day of admission. Patient overall has been feeling poorly with very poor p.o. intake. He received chemotherapy about a week ago.
Workup in the emergency showed severe neutropenia along with fever of 100.4. Patient was admitted to the ICU for neutropenic fever and collar worker consult was requested for further management.
Important past medical history, hypertension, hyperlipidemia, pancreatic cancer s/p Whipple's procedure and more recently on chemotherapy, coronary artery disease s/p coronary artery bypass graft more than a decade ago, cholecystectomy,
tonsillectomy, appendectomy and hypothyroidism.
Social history, non-smoker.
Family History
Family History: Reviewed & Not Pertinent
Allergies / Home Medications
Allergies
Allergy/AdvReac Type Severity Reaction Status Date / Time
Penicillins Allergy Unknown Verified 11/12/24 21:09
Home Medications
�Medication �Instructions �Recorded �Confirmed �Last Taken �Type
aspirin 81 mg tablet,delayed 81 mg PO DAILY Blood Clot 05/08/12 11/12/24 11/12/24 History
release Prevention/Tx
cholecalciferol (vitamin D3) 50 50 mcg PO DAILY Supplement 06/06/24 11/12/24 11/12/24 History
mcg (2,000 unit) tablet (Vitamin
D3)
levothyroxine 50 mcg tablet 50 mcg PO DAILY Thyroid 06/06/24 11/12/24 11/12/24 History
metoprolol tartrate 25 mg tablet 12.5 mg PO BID Blood Pressure 06/06/24 11/12/24 11/12/24 History
simvastatin 20 mg tablet 20 mg PO QPM High Cholesterol 06/06/24 11/12/24 11/12/24 History
dtnsfc-puqfunnd-ayibbsk 1 cap PO AC 09/24/24 11/12/24 11/12/24 History
24,000-76,000-120,000 unit
capsule,delayed rel (Creon)
sennosides 8.6 mg tablet (senna) 8.6 mg PO DAILY 09/24/24 11/12/24 11/12/24 History
Oxaliplatin 1 dose IV Q2W 11/12/24 11/12/24 11/07/24 History
fluorouracil 1 dose IV Q2W 11/12/24 11/12/24 11/07/24 History
leucovorin calcium 1 dose IV Q2W 11/12/24 11/12/24 11/07/24 History
prednisone 10 mg tablet 10 mg PO DAILYPRN PRN TAKE ON 11/12/24 11/12/24 11/12/24 History
4TH,5TH AND 6TH DAY AFTER CHEMO
Review of Systems
-
Unable to Obtain full review of systems at this time due to: Other (All systems reviewed and negative except as stated above in history of present illness.)
Hematologic/Lymphatic: Other (All 14 systems reviewed and negative except as stated above in the history of present illness.)
Vitals / Labs / Diagnostic Testing
Vital Signs
Temp Pulse Resp BP Pulse Ox
97.9 F 95 8 116/51 95
11/13/24 03:19 11/13/24 06:00 11/13/24 06:00 11/13/24 06:00 11/13/24 05:15
Lab Data
11/13/24 04:57
11/13/24 04:57
Laboratory Results
11/13/24
04:57
PT 16.3 H
INR 1.28
APTT 29.1
Microbiology
11/12/24 22:27 Nasal Swab Influenza Types A & B (YVON) - Final
Negative for Influenza A & B, NAAT
Negative results must be combined with clinical observations
and patient history.
Nucleic Acid Amplification test (NAAT)performed on the
[employer] NOW platform.
Physical Exam
-
HEENT: Normocephalic
Cardiovascular: S1/S2
Respiratory: Clear
GI: Soft, Non Distended, Non Tender and Normal Bowel Sounds
Neurology: Awake and Alert
Skin: Warm
General: Comfortable
Exam:
Patient afebrile now, 95% on room air
Assessment
-
#1. Neutropenic fever with sepsis of unclear source. Chest x-ray is unremarkable, influenza screen negative, blood cultures pending. AST and ALT are normal, alkaline phosphatase also normal at 124. Normal bilirubin, less likely biliary etiology
of sepsis. Abdominal exam is benign, no tenderness, no rebound, no rigidity. No symptoms of nausea, vomiting or abdominal pain during my evaluation. No further episodes of nausea, vomiting or diarrhea reported since in ICU.
-S/p IV fluid resuscitation, 2.9 L in, 500 mL out with -2.4 in
-Continue vancomycin and cefepime
-Hold off antifungal coverage for now unless hemodynamic instability noted
-Patient now off Levophed. Responded well to volume resuscitation.
-Follow-up on blood cultures
-Infectious disease and oncology service consult
#2. Lactic acidosis related to sepsis
-Lactate gradually improving with IV fluid resuscitation
-Continue IV fluids and MAP above 65
#3. History of pancreatic cancer status post Whipple procedure and currently on chemotherapy
-Oncology consult, await further recommendations
-Abdominal exam is benign, LFTs are unremarkable and patient denies any abdominal symptoms. If any worsening sepsis noted, will have low threshold to proceed with CT abdomen pelvis with p.o. and IV contrast.
DVT prophylaxis with Lovenox
Critical Care time [41] mins -- The patient is admitted for acute critical illness for the treatment of vital organ failure and/or prevention of further life-threatening conditions. Total care includes time spent in review of history, physical exam,
medications, hemodynamic/ventilator parameters, laboratory data, imaging and discussion with house staff, pharmacy, respiratory therapy, marketing researcher, and nursing.
--- NOTE | 2024-11-13 07:19 | CON.ONC ---
Impression
Impression
Neutropenia sepsis with hypotension
Stage IIb pancreatic cancer on adjuvant FOLFOX chemotherapy
Chemotherapy-induced pancytopenia
CAD
Plan
Plan
Agree with current management including supportive care with fluids and pressors, antibiotics. Infectious disease has been consulted.
Monitor CBC. No role for blood transfusions currently.
Transfuse for Hgb <7 or plt <10,000 unless bleeding at which point platelet transfusion will be higher.
No role for inpatient G-CSF as patient was treated with LA G-CSF (Rolvedon) on 11/07.
Discontinue prednisone which was just ordered for a few days low-dose to help with his posttreatment related nonspecific side effect. Patient is very unlikely to have exogenous prednisone related addisonian crisis so we will hold off on stress dose
steroids for now.
Will continue to follow along with you.
Patient History
History of Present Illness
CC: Weakness, decreased appetite, dizziness
HPI:
78-year-old male with stage IIb pancreatic cancer status post Whipple at [facility] 07/2024 that had pathologic high risk features including 09/25 lymph node + as well as perineural invasion who is currently receiving adjuvant FOLFOX
chemotherapy with long-acting G-CSF Rolvedon presenting with loose stools, nausea/vomiting, generalized severe weakness, dizziness, poor p.o. intake. Most recent cycle of chemotherapy (cycle #3) was administered on 11/05/2024. Presents with fever
of 100.4 and pancytopenia with severe neutropenia with WBC count = 0.2 and ANC 0.0. Patient treated with broad-spectrum antibiotics including vancomycin + cefepime and required IV fluids and pressors. He is currently on Levophed. Patient is
currently on low-dose prednisone 10 mg daily x 3 days basically ordered for generalized weakness. He is not taking chronic prednisone therapy.
This morning, he remains weak. He says it is too soon to know if he is feeling any better with the fluids, pressors, and antibiotics.
Past-Medical/Surgical History
PMH: HTN, HLD, pancreatic CA stage II, CAD status post CABG x 5 vessel approximately 12 years ago, HTN, HLD, hypothyroidism, cholecystectomy, tonsillectomy, appendectomy, cholecystectomy
PSH:
Status post Whipple 08/06/2024
CAD status post CABG x 5 vessel approximately 12 years ago
cholecystectomy
tonsillectomy
appendectomy
SH:
Tobacco: Non-smoker
Alcohol: None
Drug: None
Personal:
Living: With Family ( and son Nish)
Employment: Retired
Patient Medication
�Medication �Instructions �Recorded �Confirmed �Last Taken �Type
aspirin 81 mg tablet,delayed 81 mg PO DAILY Blood Clot 05/08/12 11/12/24 11/12/24 History
release Prevention/Tx
cholecalciferol (vitamin D3) 50 50 mcg PO DAILY Supplement 06/06/24 11/12/24 11/12/24 History
mcg (2,000 unit) tablet (Vitamin
D3)
levothyroxine 50 mcg tablet 50 mcg PO DAILY Thyroid 06/06/24 11/12/24 11/12/24 History
metoprolol tartrate 25 mg tablet 12.5 mg PO BID Blood Pressure 06/06/24 11/12/24 11/12/24 History
simvastatin 20 mg tablet 20 mg PO QPM High Cholesterol 06/06/24 11/12/24 11/12/24 History
tiivoo-qtnfytim-bbltxem 1 cap PO AC 09/24/24 11/12/24 11/12/24 History
24,000-76,000-120,000 unit
capsule,delayed rel (Creon)
sennosides 8.6 mg tablet (senna) 8.6 mg PO DAILY 09/24/24 11/12/24 11/12/24 History
Oxaliplatin 1 dose IV Q2W 11/12/24 11/12/24 11/07/24 History
fluorouracil 1 dose IV Q2W 11/12/24 11/12/24 11/07/24 History
leucovorin calcium 1 dose IV Q2W 11/12/24 11/12/24 11/07/24 History
prednisone 10 mg tablet 10 mg PO DAILYPRN PRN TAKE ON 11/12/24 11/12/24 11/12/24 History
4TH,5TH AND 6TH DAY AFTER CHEMO
Active Medications
Generic Name Dose Route Start Last Admin
Trade Name Freq PRN Reason Stop Dose Admin
Acetaminophen 650 mg 11/13/24 01:25
Acetaminophen 325 Mg Tablet PO 12/11/24 01:24
Q4HPRN PRN
mild pain/KING/temp> 100.4F
Aspirin 81 mg 11/13/24 08:00
Aspirin 81 Mg (Enteric Coated) Tablet PO 12/11/24 07:59
DAILY RADNY
Atorvastatin Calcium 10 mg 11/13/24 18:00
Atorvastatin (Lipitor) 10 Mg Tablet PO 12/11/24 17:59
QPM RANDY
Cefepime HCl 2,000 mg 11/13/24 08:00
Cefepime Hcl 2,000 Mg/12.5 Ml Vial IV
Q8H RANDY
Cholecalciferol 50 mcg 11/13/24 08:00
Cholecalciferol (Vitamin D3) 50 Mcg Tablet (2,000 Units) PO 12/11/24 07:59
DAILY RANDY
Enoxaparin Sodium 40 mg 11/13/24 18:00
Enoxaparin Sodium 40 Mg/0.4 Ml Syringe SC 12/11/24 17:59
QPM RANDY
Norepinephrine Bitartrate 4 mg in 250 mls @ 0 mls/hr 11/12/24 23:45 11/13/24 00:17
Levophed IV 250 mls
PER PROTOCOL RANDY Administration
Protocol
Per Protocol
Vancomycin HCl 1 each/ Device 0 mls @ 0 mls/hr 11/13/24 01:25
IV
PER PROTOCOL RANDY
As Directed
Lactated Ringer's 1,000 mls @ 80 mls/hr 11/13/24 01:25 11/13/24 01:43
Lr IV 1,000 mls
[id number] RANDY Administration
Levothyroxine Sodium 50 mcg 11/13/24 06:00 11/13/24 05:42
Levothyroxine 50 Mcg Tablet PO 12/11/24 05:59 50 mcg
DAILY @ 0600 RANDY Administration
Ondansetron HCl 4 mg 11/13/24 01:25
Ondansetron 4 Mg/2 Ml Vial IV 12/11/24 01:24
Q6HPRN PRN
nausea and vomiting
Pancrelipase 2 capsule 11/13/24 07:30
Pancrelipase (Zenpep) Delayed Release Capsule PO 12/11/24 07:29
AC RANDY
Prednisone 10 mg 11/13/24 08:00
Prednisone 10 Mg Tablet PO 11/16/24 07:59
DAILY RANDY
Sennosides 8.6 mg 11/13/24 08:00
Sennosides (Senokot) 8.6 Mg Tablet PO 12/11/24 07:59
DAILY RANDY
Sodium Chloride 0 flush 11/12/24 23:00
Sodium Chloride 0.9% (Flush) Syringe IV 12/10/24 22:59
PER PROTOCOL RANDY
Sterile Water 10 ml 11/13/24 08:00
Sterile Water For Injection 10 Ml Vial IV 12/11/24 07:59
Q8H RANDY
Physical Exam
-
General: No Apparent Distress and Conversant; Negative Pain or Sweats
HEENT: Negative Jaundice
Cardiology: Normal Sinus Rhythm, S1 and S2
Pulmonary: Clear and Other (Right chest wall port is intact without erythema)
GI: Soft
Extremities: No C/C/E
Neurology: Non Focal
Psych: Calm
Labs
Lab Results
WBC 0.6 10^3/uL (4.8-10.8) L* 11/13/24 04:57
RBC 2.33 10^6/uL (4.70-6.10) L 11/13/24 04:57
Hgb 7.8 g/dL (13.0-18.0) L 11/13/24 04:57
Hct 23.1 % (39.0-52.0) L 11/13/24 04:57
MCV 99.1 fL (80.0-94.0) H 11/13/24 04:57
MCH 33.5 pg (27.0-31.0) H 11/13/24 04:57
MCHC 33.8 g/dL (33.0-37.0) 11/13/24 04:57
RDW 18.3 % (11.5-14.5) H 11/13/24 04:57
Plt Count 102 10^3/uL (130-400) L 11/13/24 04:57
MPV 11.8 fL (7.4-10.4) H 11/13/24 04:57
Abs Immat Gran (auto) 0.0 10^3/uL (0-0.05) 11/12/24 21:17
Absolute Neuts (auto) 0.0 10^3/uL (1.4-6.5) L* 11/12/24 21:17
Absolute Lymphs (auto) 0.1 10^3/uL (1.2-3.4) L 11/12/24 21:17
Absolute Monos (auto) 0.0 10^3/uL (0.1-0.6) L 11/12/24 21:17
Absolute Eos (auto) 0.0 10^3/uL (0-0.7) 11/12/24 21:17
Absolute Basos (auto) 0.0 10^3/uL (0-0.2) 11/12/24 21:17
Immature Gran % 0.0 % (0-0.5) 11/12/24 21:17
Neutrophils % 15.0 % (42.2-75.2) L 11/12/24 21:17
Lymphocytes % 70.0 % (20.5-51.1) H 11/12/24 21:17
Monocytes % 15.0 % (1.7-9.3) H 11/12/24 21:17
Eosinophils % 0.0 % (0-6) 11/12/24 21:17
Basophils % 0.0 % (0-2) 11/12/24 21:17
Creatinine 0.9 mg/dL (0.7-1.3) 11/13/24 04:57
Vital Signs
Vital Signs
Temp Pulse Resp BP Pulse Ox
97.9 F 95 8 116/51 95
11/13/24 03:19 11/13/24 06:00 11/13/24 06:00 11/13/24 06:00 11/13/24 05:15
[2024-11-13 08:15] LABS: % Basophils 1.7 % (0-2); % Eosinophils 1.7 % (0-6); % Lymphocytes 75.9 % (20.5-51.1); % Monocytes 12.1 % (1.7-9.3); % Neutrophils 8.6 % (42.2-75.2); Absolute Lymphocytes 0.4 10^3/uL (1.2-3.4); Absolute Monocytes 0.1 10^3/uL (0.1-0.6); Absolute Neutrophils 0.1 10^3/uL (1.4-6.5); Nucleated Red Blood Cells % 0 % (-)
[2024-11-13] MEDS: VITAMIN D3 (cholecalciferol) 50 MCG PO (08:56)
[2024-11-13] MEDS: SENOKOT 8.6 MG PO (08:56)
[2024-11-13] MEDS: ZENPEP DELAYED RELEASE CAPSULE 2 CAPSULE PO ×3 (08:56→18:42)
[2024-11-13] MEDS: ASPIR LOW (ENTERIC COATED) 81 MG PO (08:57)
[2024-11-13] MEDS: MAXIPIME 2000 MG IV ×3 (08:58→23:24)
--- NOTE | 2024-11-13 09:05 | PHA.VAN.IN ---
Assessment
- Assessment
Renal Function: Unknown baseline
Concomitant Antimicrobials: cefepime
Plan
- Plan
Initial / Loading Dose: 1500mg - 11/12 22:08
Maintenance Regimen: dosing by level - give additional 500mg x1 today
Monitorin/6 06
SCR values here wavered from 0.9 to 1.6
BUN elevated on admission but trending down
Will start with dosing by level for now to evaluate level and renal function trend
Pharmacokinetics Vancomycin I
- -
Patient Age: 78
Patient Sex: Male
Vancomycin Day #: 1
Indication: Bacteremia
Requesting Provider: He Hills
Pertinent Antimicrobial Allergies:
penicillins- unknown
Height / Weight:
Height 5 ft 5 in
Actual Weight 56.9 kg
Pertinent Past Medical History: Pancreatic cancer
- Vital Signs / Lab Results
Temp Pulse Resp BP Pulse Ox
98.7 F 95 8 116/51 95
11/13/24 07:41 11/13/24 06:00 11/13/24 06:00 11/13/24 06:00 11/13/24 05:15
Lab Results - Hematology
11/12/24 11/13/24
21:17 04:57
WBC 0.2 L* 0.6 L*
Lab Results - Chemistry
11/12/24 11/13/24
21:17 04:57
BUN 37 H 29 H
Creatinine 1.1 0.9
Estimated Creat Clear 46 56
Albumin 3.6 3.0 L
11/12/24 11/13/24
21:22 04:57
Lactic Acid 5.1 H* 2.3 H
Lab Results - Urine
11/12/24
22:11
Urine Nitrite (Reflex) Negative
Leukocyte Esterase Rfl Negative
Urine WBC (Reflex) 6-10
Ur Squamous Epith Cells 0-2
Urine Bacteria (Reflex) Few A
Microbiology Results
11/12/24 22:27 Influenza Types A & B (YVON) - Final
Nasal Swab Negative for Influenza A & B, NAAT
Negative results must be combined with clinical observations
and patient history.
Nucleic Acid Amplification test (NAAT)performed on the
[employer] NOW platform.
--- NOTE | 2024-11-13 09:15 | CON.ID ---
Consultation
-
Date/Time Consultation Requested: 11/13/24 1:25
Date/Time Consultation Performed: 11/13/24 11:25
Requesting Provider: Jeana HARTLEY
Performing Provider: Dr Londono
Reason for Consultation: Neutropenic Fever
Chief Complaint / Past History
Chief Complaint
Neutropenic fever, septic shock pancreatic CA
History of Present Illness
Mr Bui is a 78 year old male with history of pancreatic cancer s/p whipple 3 months ago at [facility]. His last chemotherapy was 1 week ago - every 2 weeks gets 2 injections of Oxalipatin, leuovorin on day 1 then infusion for 2 days of fluorouracil
he finished on he received long acting GCSF. He takes a short course of steroids 30 mg for ADRs (weakness) - no chronic steroids. Then yesterday he developed vomiting, a single episode of loose stool, malaise, weakness and anorexia.
Since arrival here he has a Tmax of 100.4 orally, BP initially requiring pressors now weaned off, wbc 0.6, hgb 7.8, plt 102, anc initially 0.0 today 0.1. On arrival Na 131, co2 12 (today 16), cr 1.1 (today 0.9), lactic acid 5.1 (now 1.1), LFTs wnl,
UA no pyuria and few bacteria, 11/12 CXR: no CP disease - port in place, blood cultures x2 in progress, flu negative, covid ag negative, currently on vancomycin and cefepime. Today he reports his symptoms have resolved. Specifically denies headache,
sinus tenderness, sores/pain in the mouth, sore throat, further nausea/vomiting/diarrhea, constipation, dysuria, new rashes, new joint pains or pain over the port. Currently on vanc and cefepime.
Of note adult son who now lives with him was diagnosed with nondisseminated shingles this AM by his supervisor extruding department and was prescribed topical acyclovir. Family report this is his second episode of shingles I have recommended 1) contact PCP to
consider oral therapy 2) if using topical therapy then use gloves every time 3) avoid touching the lesion 4) ask PCP about immunodeficiency testing 5) dad (Aris) could eventually return to the same home so long as they do not share
clothes/towels/fomites; son keeps the lesions covered until crusted; dad does not touch the lesions; the lesions do not spread to other areas.
Past History
Additional Past Medical History:
HTN
HLD
pancreatic CA stage II on chemo every 2 weeks started October 02 last chemo 11/07, last fluorouracil
Status post Whipple 08/06/2024
CAD status post CABG x 5 vessel approximately 12 years ago
hypothyroidism
Additional Past Surgical History:
Status post Whipple 08/06/2024
CABG x 5 vessel
cholecystectomy
tonsillectomy
appendectomy
cholecystectomy
Allergy History:
Penicillins Allergy (Verified 11/12/24 21:09)
Unknown
Medications Reviewed: Yes
Social History
Tobacco: Non-Smoker
Alcohol: None
Drug: None
Family History
Family History: Not Pertinent
Review of Systems
Review of Systems
General: Fever; Negative Chills
All systems: All other systems were reviewed and were negative
Vital Signs
Temp Pulse Resp BP Pulse Ox
98.7 F 95 8 116/51 95
11/13/24 07:41 11/13/24 06:00 11/13/24 06:00 11/13/24 06:00 11/13/24 05:15
Physical Exam
Physical Exam
Constitutional: No Acute Distress
Head: Other (no oral ulcerations or mucositis)
Cardiovascular: Regular Rate and S1/S2; Negative Murmur or Rub
Pulmonary: Clear and Symmetric; Negative Wheezes, Rales or Rhonchi
Gastrointestinal: Soft, Non Tender, Non Distended and Normal Bowel Sounds
Skin: Warm and Dry; Negative Rash or Jaundice
Lab / Diagnostic Study Results
11/13/24 04:57
11/13/24 04:57
Abs Immat Gran (auto) 0.0 10^3/uL (0-0.05) 11/13/24 04:57
Absolute Neuts (auto) 0.1 10^3/uL (1.4-6.5) L* 11/13/24 04:57
Absolute Lymphs (auto) 0.4 10^3/uL (1.2-3.4) L 11/13/24 04:57
Absolute Monos (auto) 0.1 10^3/uL (0.1-0.6) 11/13/24 04:57
Absolute Basos (auto) 0.0 10^3/uL (0-0.2) 11/13/24 04:57
Immature Gran % 0.0 % (0-0.5) 11/13/24 04:57
Neutrophils % 8.6 % (42.2-75.2) L 11/13/24 04:57
Lymphocytes % 75.9 % (20.5-51.1) H 11/13/24 04:57
Monocytes % 12.1 % (1.7-9.3) H 11/13/24 04:57
Eosinophils % 1.7 % (0-6) 11/13/24 04:57
Basophils % 1.7 % (0-2) 11/13/24 04:57
PT 16.3 Sec (11.4-14.6) H 11/13/24 04:57
INR 1.28 11/13/24 04:57
Lactic Acid 2.3 mmol/L (0.7-2.0) H 11/13/24 04:57
Ur Squamous Epith Cells 0-2 /LPF (Few) 11/12/24 22:11
Microbiology Results
Micro:
11/12/24 21:22 Blood Culture - Pending
Blood/Venous
11/12/24 21:22 Blood Culture - Pending
Blood/Venous
11/12/24 22:27 Influenza Types A & B (YVON) - Final
Nasal Swab Negative for Influenza A & B, NAAT
Negative results must be combined with clinical observations
and patient history.
Nucleic Acid Amplification test (NAAT)performed on the
[employer] platform.
Assessment / Plan
Febrile Neutropenia
Pancreatic cancer
- symptomatically improved
- no mucositis, cellulitis or evidence of pneumonia - stopped vancomycin
- follow blood cultures
- agree with cefepime - continue at present dosage
- steroids per oncology - note they were stopped
- Of note adult son who now lives with him was diagnosed with nondisseminated shingles this AM by his supervisor extruding department and was prescribed topical acyclovir. Family report this is his second episode of shingles I have recommended 1) contact PCP to
consider oral therapy 2) if using topical therapy then use gloves every time 3) avoid touching the lesion 4) ask PCP about immunodeficiency testing 5) dad (Aris) could eventually return to the same home so long as they do not share
clothes/towels/fomites; son keeps the lesions covered until crusted; dad does not touch the lesions; the lesions do not spread to other areas.
- follow clinically
[2024-11-13] MEDS: MAGNESIUM SULFATE 50 IV (09:43)
[2024-11-13 10:21] LABS: Lactic Acid 1.1 mmol/L (0.7-2.0)
[2024-11-13] MEDS: KCL 40 MEQ PO (11:52)
--- NOTE | 2024-11-13 12:05 | W.PN.HOSP.TC ---
Today's Communication/Plan
-
monitor vital signs
see plan
Continue with empiric antibiotics
Follow cultures
Follow fever curve
Monitor pancytopenia
if BP remains well off levophed then transfer to floors
Assessment / Plan
Assessment / Plan
General: Comfortable, Conversant, Fever and Chills
HEENT: NormoCephalic, Anicteric, PERRLA, [place] Conjunctivae
Respiratory: Clear; No Wheezes, Rales or Rhonchi
Cardiac: S1/S2 and Regular Rhythm; No Murmur
GI: Soft, Non Tender, Non Distended and Normal Bowel Sounds
Musculoskeletal: No Edema
Skin: Warm, Dry and Other (Port right upper chest wall)
Neuro: AO x 3, No Motor Deficits, Nonfocal/grossly intact
Psych: Calm
Septic shock unclear etiology
#Acute neutropenic fever status post chemo 1 week ago pancreatic cancer
#Acute pancytopenia
montior neutropenia
last chemo was last week; follows up with Dr Guzman outpatient
monitor CBC
was put on levophed on admission; now off and improving. if BP persistently good off levophed then transfter to floors
-IV NSS 2 L given in ER
cw IVF
UA negative, CXR pending, COVID/flu negative; blood cultures x 2
-Neutropenic precautions
oncology following
ID following
follow fever curve
cw IV abx
Lactic acidosis
Resolved
#Pancreatic cancer stage II 1 lymph node positive Dx May 2024 on current chemo
-Status post Whipple August 06 2024 [facility]
May 2024 admit MRCP found CBD dilation with concern for intrabiliary or pancreatic neoplasm obstructing CBD and pancreatic duct, s/p ERCP on 06/10/24 with biopsy and plastic stent
-Continue Creon 1 capsule p.o. AC
-Port right upper chest wall
Chemo regimen below:
-Fluorouracil 1 dose IV every 2 weeks last infusion 11/07/2024, 11/08, 11/09 # day home infusion
-Leucovorin calcium 1 dose IV every 2 weeks last dose 11/07/2024
-Oxaliplatin 1 dose IV every 2 weeks 11/07/2024
-Patient states he gets colonizing stimulating factor injection on the third day after chemo he should have had on 11/09/2024
oncology following; no need for prednisone at this time
#CAD status post CABG x 5 vessel 12 years ago
-Continue aspirin 81 mg daily, HOLD metoprolol tartrate 12.5 mg twice daily
hyponatremia
Hypomagnesemia
replete
#HTN
-HOLD metoprolol 12.5 mg twice daily with hold parameters
#HLD
-Continue simvastatin 20 mg every afternoon
#Hypothyroidism
-Continue levothyroxine 50 mcg p.o. daily
#cholecystectomy hx
DVT prophylaxis
-Subcu Lovenox
Full code per patient with , son and [id number] at bedside
I spent a total of 52 minutes with the patient or on the floor. More than 50% of this time involved counseling and coordination of care.
Anticipated Discharge: > 48 hours
Subjective/Interval History
-
Date of Service: November 13, 2024
Denies pain
Objective Data
-
Labs:
Laboratory Results
11/13/24
04:57
WBC 0.6 L*
Hgb 7.8 L
Hct 23.1 L
Plt Count 102 L
PT 16.3 H
INR 1.28
APTT 29.1
Sodium 134 L
Potassium 3.9
Chloride 106
Carbon Dioxide 16 L
BUN 29 H
Creatinine 0.9
Glucose 142 H
Calcium 8.1 L
Total Bilirubin 1.0
AST 17
ALT 17
Alkaline Phosphatase 124
Vital Signs:
Vital Signs
Temp Pulse Resp BP Pulse Ox
98.6 F 96 21 114/56 96
11/13/24 11:02 11/13/24 10:15 11/13/24 10:15 11/13/24 10:00 11/13/24 09:45
I&O
11/12/24 11/13/24 11/14/24
06:59 06:59 06:59
Intake Total 2937.5 / 2937.5 370 / 370
Output Total 500 / 500 325 / 325
Balance 2437.5 / 2437.5 45 / 45
[2024-11-13] MEDS: VANCOCIN HCL 500 MG 100 IV (12:16)
--- NOTE | 2024-11-13 12:25 | PTCARENOTE ---
BP stable off Levophed. Pt OOB in chair. Good appetite. No BM this shift. All other assessments unchanged.
--- NOTE | 2024-11-13 13:09 | CM ---
CM following re: discharge planning.
Reviewed pt's chart, met with pt and pt's daughter at bedside.
pt is a 78 year old male, admitted with primary dx of Septic shock. Acute neutropenic fever status post chemo 1 week ago pancreatic cancer.
Pt reports he lives with spouse and a son 2SH, 3 steps to enter, has 3 supportive children. 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 No DME or SNF history.
PT and OT will evaluate the pt to determine a level of care at discharge.
PCP: Bhanu Cornelius
Pharmacy: [facility]
D/C plan: most likely home with VN services if recommended by PT/OT.
CM will follow with discharge plan updates as hospitalization progresses
[2024-11-13] MEDS: LOVENOX 40 MG SC (18:42)
[2024-11-13] MEDS: LIPITOR 10 MG PO (18:43)
[2024-11-14 01:30] VITALS: BP 143/74
[2024-11-14] MEDS: MYLICON 80 MG PO (01:46)
[2024-11-14] MEDS: TYLENOL 650 MG PO ×3 (01:46→12:26)
--- NOTE | 2024-11-14 01:49 | PTCARENOTE ---
Pt c/o 6-04/20 pain in upper middle abdomen, pt states pt comes and goes and is sharp. BUSINESS OPERATIONS COORDINATOR notified and up to floor to assess pt. EKG and trop ordered. EKG NSR and trop being drawn by VAT RN. Pt stated he hasn't had a BM since being here. Pt ordered
dinner tray which did not come so this RN gave pt orange juice and apple sauce. Pt took zenpep dose (see MAR) and then ended up not eating the apple sauce. BUSINESS OPERATIONS COORDINATOR notified, ordered simethicone and instructed RN to give tylenol. Pt w/o c/o nausea. Plan
of care ongoing.
[2024-11-14 02:31] LABS: Troponin I 0.019 ng/ml
--- NOTE | 2024-11-14 02:47 | W.PN.UPDATE ---
Update Note
Progress Note Update
Called by RN to see patient for new onset epigastric pain. Pt described as sharp pain, non-radiating in the epigastric area, rated at 7 out of 10. EKG showed NSR, HR 98. Troponin ordered, 0.019, repeat pending. Ordered LFTs, Mag with AM labs. Pt
reported later that may be indigestion, administered Tylenol and Simethicone. Follow up with RN, reported patient was sleeping. Consider CT abd/pelvis if pain continues.
[2024-11-14] MEDS: LR 1000 IV ×2 (03:31→22:31)
[2024-11-14] MEDS: SYNTHROID 50 MCG PO (05:38)
[2024-11-14 05:53] VITALS: BMI 21.7
[2024-11-14 07:54] VITALS: BP 114/62
[2024-11-14 08:00] LABS: Troponin I 0.022 ng/ml
[2024-11-14 08:06] LABS: Hematocrit 20.6 % (39.0-52.0); Hemoglobin 6.8 g/dL (13.0-18.0); Mean Corpuscular Hgb 32.9 pg (27.0-31.0); Mean Corpuscular Volume 99.5 fL (80.0-94.0); Mean Platelet Volume 11.6 fL (7.4-10.4); Platelet Count 72 10^3/uL (130-400); Red Blood Cell Count 2.07 10^6/uL (4.70-6.10); Red Cell Dist. Width 18.3 % (11.5-14.5); White Blood Cell Count 0.6 10^3/uL (4.8-10.8)
[2024-11-14 08:07] LABS: Anisocytosis 1+; Band Neutrophils 0 % (0-3); Eosinophils 7 % (0-6); Hypochromasia 1+; Lymphocytes 60 % (20-51); Monocytes 18 % (2-9); Normal RBC Morphology No; Ovalocytes Slight; Platelets Checked Yes; Segmented Neutrophils 15 % (42-75)
[2024-11-14 08:08] LABS: Total Cells Counted 100
[2024-11-14 08:36] LABS: ALT (SGPT) 13 U/L (0-50); AST (SGOT) 13 U/L (17-59); Albumin 2.5 g/dl (3.5-5.0); Alkaline Phosphatase 100 U/L (38-126); Blood Urea Nitrogen 18 mg/dl (9-20); Calcium 7.9 mg/dl (8.4-10.2); Carbon Dioxide 19 mmol/L (22-30); Chloride 105 mmol/L (98-107); Direct Bilirubin 0.2 mg/dl (0.0-0.4); Estimated Creatinine Clearance 65 ml/min; Glucose 118 mg/dl (70-99); Potassium 3.2 mmol/L (3.5-5.1); Sodium 130 mmol/L (135-145); Total Bilirubin 0.7 mg/dl (0.2-1.3); Total Protein 4.5 g/dl (6.3-8.2); eGFR > 60.00
[2024-11-14] MEDS: ZENPEP DELAYED RELEASE CAPSULE PO ×2 (09:11→11:40)
[2024-11-14] MEDS: MAXIPIME 2000 MG IV ×2 (09:12→17:37)
[2024-11-14] MEDS: STERILE WATER FOR INJECTION 10 ML IV ×2 (09:12→17:36)
[2024-11-14] MEDS: SENOKOT 8.6 MG PO (09:12)
[2024-11-14] MEDS: ASPIR LOW (ENTERIC COATED) 81 MG PO (09:12)
[2024-11-14] MEDS: VITAMIN D3 (cholecalciferol) 50 MCG PO (09:16)
[2024-11-14] MEDS: PROTONIX 40 MG PO (09:17)
--- NOTE | 2024-11-14 10:52 | CM ---
Patient seen at bedside. Patient confirmed plan for discharge home with family. Patient PCP is Dr. Isaacs and he uses the [facility] in [place]. Patient stated that he has no DME at home and does anticipate that they may need VN for supports at
home. CM will continue to follow for discharge planning needs.
Plan; home with VN vs home with no needs.
--- NOTE | 2024-11-14 10:57 | W.PN.ONC ---
Today's Communication / Plan
-
Will transfuse today hemoglobin 6.8 g/dL
CT scan of the abdomen to assess potential etiology of pain, rule out bleeding and abscess
Transfuse for Hgb <7 or plt <10,000 unless bleeding at which point platelet transfusion will be higher.
No role for inpatient G-CSF as patient was treated with LA G-CSF (Rolvedon) on 11/07
Discontinue prednisone which was just ordered for a few days low-dose to help with his posttreatment related nonspecific side effect.
Continue PPI
Impression
Impression
Neutropenia sepsis with hypotension despite pretreatment white blood cell count of 48K and Neulasta support
Stage IIb pancreatic cancer on adjuvant FOLFOX chemotherapy
Chemotherapy-induced pancytopenia
CAD
Subjective/Objective
Subjective/Objective
Patient developed mid abdominal discomfort overnight.
Vital Signs:
Vital Signs
Temp Pulse Resp BP Pulse Ox
99.6 F 96 17 114/62 100
11/14/24 07:54 11/14/24 07:54 11/14/24 07:54 11/14/24 07:54 11/14/24 07:54
Physical examination:
No scleral icterus
Heart regular
No rales or decreased tactile fremitus
Abdominal tenderness not reproducible
Extremity symmetrical
Lab Results:
Laboratory Data
WBC 0.6 10^3/uL (4.8-10.8) L* 11/14/24 07:29
Hgb 6.8 g/dL (13.0-18.0) L* 11/14/24 07:29
Plt Count 72 10^3/uL (130-400) L D 11/14/24 07:29
PT 16.3 Sec (11.4-14.6) H 11/13/24 04:57
INR 1.28 11/13/24 04:57
APTT 29.1 Sec (23.4-35.0) 11/13/24 04:57
eGFR > 60.00 11/14/24 07:29
--- NOTE | 2024-11-14 11:03 | W.PN.HOSP.TC ---
Today's Communication/Plan
-
Monitor vital signs see plan
Check CT abdomen/pelvis
Transfuse 1 unit PRBC, discussed with hematology
Repeat CBC later today
Discussed with spouse over the phone
Follow fever curve
Continue antibiotics
Assessment / Plan
Assessment / Plan
General: Comfortable, Conversant, Fever and Chills
HEENT: NormoCephalic, Anicteric, PERRLA, [place] Conjunctivae
Respiratory: Clear; No Wheezes, Rales or Rhonchi
Cardiac: S1/S2 and Regular Rhythm; No Murmur
GI: Soft, Non Tender, Non Distended and Normal Bowel Sounds
Musculoskeletal: No Edema
Skin: Warm, Dry and Other (Port right upper chest wall)
Neuro: AO x 3, No Motor Deficits, Nonfocal/grossly intact
Psych: Calm
Septic shock unclear etiology
#Acute neutropenic fever status post chemo 1 week ago pancreatic cancer
#Acute pancytopenia
montior neutropenia
last chemo was last week; follows up with Dr Guzman outpatient
monitor CBC
was put on levophed on admission; now weaned off
cw IVF
UA negative, CXR without PNA, COVID/flu negative; blood cultures NGTD
-Neutropenic precautions
oncology following
ID following
follow fever curve
cw IV abx
Lactic acidosis
Resolved
#Pancreatic cancer stage II 1 lymph node positive Dx May 2024 on current chemo
-Status post [facility] August 06 2024 [facility]
May 2024 admit MRCP found CBD dilation with concern for intrabiliary or pancreatic neoplasm obstructing CBD and pancreatic duct, s/p ERCP on 06/10/24 with biopsy and plastic stent
-Continue Creon 1 capsule p.o. AC
-Port right upper chest wall
Chemo regimen below:
-Fluorouracil 1 dose IV every 2 weeks last infusion 11/07/2024, 11/08, 3/1 # day home infusion
-Leucovorin calcium 1 dose IV every 2 weeks last dose 11/07/2024
-Oxaliplatin 1 dose IV every 2 weeks 11/07/2024
-Patient states he gets colonizing stimulating factor injection on the third day after chemo he should have had on 11/09/2024
oncology following; no need for prednisone at this time
Significant pancytopenia, hemoglobin 6.8. No signs of bleeding. Transfusion form consented. Discussed with hematology, will transfuse 1 unit PRBC and monitor
hold lovenox for thrombocytopenia for now
Abdominal discomfort today, check CT scan abdomen/pelvis
#CAD status post CABG x 5 vessel 12 years ago
-Continue aspirin 81 mg daily, HOLD metoprolol tartrate 12.5 mg twice daily
hyponatremia
Hypomagnesemia
hypokalemia
replete
#HTN
-HOLD metoprolol 12.5 mg twice daily with hold parameters
#HLD
-Continue simvastatin 20 mg every afternoon
#Hypothyroidism
-Continue levothyroxine 50 mcg p.o. daily
#cholecystectomy hx
DVT prophylaxis
-SCD's
Full code per patient with , son and [id number] at bedside
I spent a total of 52 minutes with the patient or on the floor. More than 50% of this time involved counseling and coordination of care.
Anticipated Discharge: > 48 hours
Subjective/Interval History
-
Date of Service: November 14, 2024
has abdominal discomfort
Objective Data
-
Labs:
Laboratory Results
11/14/24 11/14/24
07:29 16:00
WBC 0.6 L* Pending
Hgb 6.8 L* Pending
Hct 20.6 L* Pending
Plt Count 72 L D Pending
Sodium 130 L
Potassium 3.2 L
Chloride 105
Carbon Dioxide 19 L
BUN 18
Creatinine 0.8
Glucose 118 H
Calcium 7.9 L
Total Bilirubin 0.7
AST 13 L
ALT 13
Alkaline Phosphatase 100
Vital Signs:
Vital Signs
Temp Pulse Resp BP Pulse Ox
99.6 F 96 17 114/62 100
11/14/24 07:54 11/14/24 07:54 11/14/24 07:54 11/14/24 07:54 11/14/24 07:54
I&O
11/13/24 11/14/24 11/15/24
06:59 06:59 06:59
Intake Total 2937.5 / 2937.5 2450 / 2450
Output Total 500 / 500 1775 / 1775
Balance 2437.5 / 2437.5 675 / 675
--- NOTE | 2024-11-14 11:37 | W.PN.ID1 ---
Addendum entered and electronically signed by Yanely Londono MD 11/14/24 14:26:
chart checked, ct not yet resulted
Original Note:
Date of Service
Date of Service: November 14, 2024
Today's Communication
- abdominal pain overnight and today - CT a/p pending
- follow blood cultures
- agree with cefepime - continue at present dosage
- had long acting GCSF on 11/07
Assessment / Plan
Febrile Neutropenia
Pancreatic cancer
- abdominal pain overnight and today - CT a/p pending
- follow blood cultures
- agree with cefepime - continue at present dosage
- had long acting GCSF on 11/07
- Of note adult son who now lives with him was diagnosed with non-disseminated shingles 11/13 by his plasterer rough and was prescribed topical acyclovir. Family report this is his second episode of shingles I have recommended 1) contact PCP to
consider oral therapy 2) if using topical therapy then use gloves every time 3) avoid touching the lesions 4) ask PCP about immunodeficiency testing 5) dad (Aris) could eventually return to the same home so long as they do not share
clothes/towels/fomites; son keeps the lesions covered until crusted; dad does not touch the lesions; the lesions do not spread to other areas.
- follow clinically
Chief Complaint
-: Fever and Other (neutropenia)
Subjective / Review of Systems
afebrile
bp stable off of pressors
had sharp mid-abdominal pain overnight which has persisted into this AM- EKG read as possible inferior infarct
troponins cycled x2 and remains normal
Vital Signs / Physical Exam
Vital Signs
Vital Signs
Temp Pulse Resp BP Pulse Ox
98.4 F 96 17 114/62 100
11/14/24 11:35 11/14/24 07:54 11/14/24 07:54 11/14/24 07:54 11/14/24 07:54
Physical Exam
Constitutional: No Acute Distress
Cardiovascular: Regular Rate and S1/S2; Negative Murmur or Rub
Pulmonary: Clear and Symmetric; Negative Wheezes or Rales
Gastrointestinal: Soft, Non Tender, Non Distended, Normal Bowel Sounds, No Rebound and No Guarding
Skin: Warm and Dry; Negative Rash or Jaundice
Objective Data
Lab Data
Lab Results
11/14/24 07:29
PT 16.3 Sec (11.4-14.6) H 11/13/24 04:57
INR 1.28 11/13/24 04:57
APTT 29.1 Sec (23.4-35.0) 11/13/24 04:57
Estimated Creat Clear 65 ml/min 11/14/24 07:29
Lactic Acid 1.1 mmol/L (0.7-2.0) 11/13/24 09:54
Total Bilirubin 0.7 mg/dl (0.2-1.3) 11/14/24 07:29
AST 13 U/L (17-59) L 11/14/24 07:29
ALT 13 U/L (0-50) 11/14/24 07:29
Alkaline Phosphatase 100 U/L (38-126) 11/14/24 07:29
Most recent labs reviewed.
Micro Results:
11/12/24 21:22 Blood Culture - Preliminary
Blood/Venous No Growth in 24 hours- Final report to follow
11/12/24 21:22 Blood Culture - Preliminary
Blood/Venous No Growth in 24 hours- Final report to follow
11/13/24 09:54 MRSA Screen - Pending
Nose
11/12/24 22:27 Influenza Types A & B (YVON) - Final
Nasal Swab Negative for Influenza A & B, NAAT
Negative results must be combined with clinical observations
and patient history.
Nucleic Acid Amplification test (NAAT)performed on the
[employer] platform.
[2024-11-14] MEDS: KCL 270 MEQ IV (11:40)
[2024-11-14] MEDS: OMNIPAQUE 50 ML PO (12:15)
[2024-11-14 12:45] VITALS: BP 130/78
[2024-11-14 13:01] VITALS: BP 117/63
[2024-11-14 15:03] VITALS: BP 130/66
[2024-11-14] MEDS: LIPITOR 10 MG PO (17:38)
[2024-11-14] MEDS: ZENPEP DELAYED RELEASE CAPSULE 2 CAPSULE PO (17:39)
[2024-11-14 20:26] LABS: % Basophils 0.8 % (0-2); % Eosinophils 2.3 % (0-6); % Immature Granulocytes 5.3 % (0-0.5); % Lymphocytes 38.3 % (20.5-51.1); % Monocytes 18.8 % (1.7-9.3); % Neutrophils 34.5 % (42.2-75.2); Absolute Immature Granulocytes 0.1 10^3/uL (0-0.05); Absolute Lymphocytes 0.5 10^3/uL (1.2-3.4); Absolute Monocytes 0.3 10^3/uL (0.1-0.6); Absolute Neutrophils 0.5 10^3/uL (1.4-6.5); Hematocrit 24.8 % (39.0-52.0); Hemoglobin 8.5 g/dL (13.0-18.0); Mean Corp Hgb Conc. 34.3 g/dL (33.0-37.0); Mean Corpuscular Hgb 32.8 pg (27.0-31.0); Mean Corpuscular Volume 95.8 fL (80.0-94.0); Nucleated Red Blood Cells % 0 % (-); Platelet Count 70 10^3/uL (130-400); Red Blood Cell Count 2.59 10^6/uL (4.70-6.10); Red Cell Dist. Width 18.6 % (11.5-14.5); White Blood Cell Count 1.3 10^3/uL (4.8-10.8)
--- NOTE | 2024-11-14 21:31 | PTCARENOTE ---
Pt c/o loose gelatinous stools. BALLOON ARTIST notified, cdiff and toxin screen ordered. Sample sent and pending. Plan of care ongoing.
[2024-11-15 00:14] VITALS: BP 144/82
[2024-11-15] MEDS: STERILE WATER FOR INJECTION 10 ML IV ×2 (00:25→08:08)
[2024-11-15] MEDS: MAXIPIME 2000 MG IV ×2 (00:26→08:08)
[2024-11-15] MEDS: SYNTHROID 50 MCG PO (05:11)
[2024-11-15 05:38] LABS: Hematocrit 26.6 % (39.0-52.0); Hemoglobin 9.5 g/dL (13.0-18.0); Mean Corp Hgb Conc. 35.7 g/dL (33.0-37.0); Mean Corpuscular Hgb 33.7 pg (27.0-31.0); Mean Corpuscular Volume 94.3 fL (80.0-94.0); Mean Platelet Volume 11.6 fL (7.4-10.4); Platelet Count 78 10^3/uL (130-400); Red Blood Cell Count 2.82 10^6/uL (4.70-6.10); Red Cell Dist. Width 18.1 % (11.5-14.5)
[2024-11-15 06:25] VITALS: BMI 21.9
[2024-11-15 06:27] LABS: ALT (SGPT) 16 U/L (0-50); AST (SGOT) 17 U/L (17-59); Albumin 2.9 g/dl (3.5-5.0); Alkaline Phosphatase 106 U/L (38-126); Blood Urea Nitrogen 15 mg/dl (9-20); Calcium 8.7 mg/dl (8.4-10.2); Carbon Dioxide 16 mmol/L (22-30); Chloride 105 mmol/L (98-107); Estimated Creatinine Clearance 65 ml/min; Glucose 96 mg/dl (70-99); Potassium 3.8 mmol/L (3.5-5.1); Sodium 133 mmol/L (135-145); Total Bilirubin 1.1 mg/dl (0.2-1.3); Total Protein 5.2 g/dl (6.3-8.2); eGFR > 60.00
[2024-11-15 07:37] VITALS: BP 134/70
[2024-11-15] MEDS: VITAMIN D3 (cholecalciferol) 50 MCG PO (08:09)
[2024-11-15] MEDS: ASPIR LOW (ENTERIC COATED) 81 MG PO (08:09)
[2024-11-15] MEDS: PROTONIX 40 MG PO (08:09)
[2024-11-15] MEDS: SENOKOT PO (08:10)
[2024-11-15] MEDS: LR 1000 IV (08:24)
[2024-11-15 08:30] LABS: % Immature Granulocytes 1.3 % (0-0.5); % Lymphocytes 34.6 % (20.5-51.1); % Monocytes 13.6 % (1.7-9.3); % Neutrophils 48.5 % (42.2-75.2); Absolute Monocytes 0.4 10^3/uL (0.1-0.6); Absolute Neutrophils 1.5 10^3/uL (1.4-6.5); Nucleated Red Blood Cells % 0 % (-)
[2024-11-15] MEDS: ZENPEP DELAYED RELEASE CAPSULE 2 CAPSULE PO ×3 (10:04→17:35)
--- NOTE | 2024-11-15 10:30 | CM ---
Patient seen at bedside with present. Patient and indicated no needs at this time. CM will continue to follow for discharge planning needs.
Plan; home with no needs anticipated at this time.
--- NOTE | 2024-11-15 10:53 | W.PN.ONC2 ---
Today's Communication / Plan
-
.
Impression
Impression
Neutropenic fever -ANC [address] shows possible neutropenic enteritis
Stage IIb pancreatic cancer on adjuvant FOLFOX chemotherapy
Chemotherapy-induced pancytopenia
CAD
Plan
Plan
on IV abx per ID
Transfuse for Hgb <7 or plt <10,000 unless bleeding at which point platelet transfusion will be higher.
No role for inpatient G-CSF as patient was treated with LA G-CSF (Rolvedon) on 11/07
no objection to antiplatelet, NSAID, or anticoagulation with platelet count >50,000 in the absence of bleeding
daily CBC
Has office follow up 11/18 which will be rescheduled if remains hospitalized
Will continue to follow along with you.
Subjective/Objective
Subjective
no new complaints
Vital Signs:
Vital Signs
Temp Pulse Resp BP Pulse Ox
97.6 F 87 17 134/70 96
11/15/24 07:37 11/15/24 07:37 11/15/24 07:37 11/15/24 07:37 11/15/24 07:37
Lab Results:
Laboratory Data
WBC 3.0 10^3/uL (4.8-10.8) L 11/15/24 05:07
Hgb 9.5 g/dL (13.0-18.0) L 11/15/24 05:07
Plt Count 78 10^3/uL (130-400) L 11/15/24 05:07
PT 16.3 Sec (11.4-14.6) H 11/13/24 04:57
INR 1.28 11/13/24 04:57
APTT 29.1 Sec (23.4-35.0) 11/13/24 04:57
eGFR > 60.00 11/15/24 05:07
--- NOTE | 2024-11-15 11:16 | W.PN.HOSP.TC ---
Today's Communication/Plan
-
Monitor vital signs see plan
Pancytopenia appears to be improving, patient feeling better
Continue antibiotics per infectious disease
Enteritis symptoms improving
Discussed with family at bedside
Assessment / Plan
Assessment / Plan
General: Comfortable, Conversant, Fever and Chills
HEENT: NormoCephalic, Anicteric, PERRLA, [place] Conjunctivae
Respiratory: Clear; No Wheezes, Rales or Rhonchi
Cardiac: S1/S2 and Regular Rhythm; No Murmur
GI: Soft, Non Tender, Non Distended and Normal Bowel Sounds
Musculoskeletal: No Edema
Skin: Warm, Dry and Other (Port right upper chest wall)
Neuro: AO x 3, No Motor Deficits, Nonfocal/grossly intact
Psych: Calm
Septic shock suspect 2/2 enteritis
suspect Enteritis secondary to possible chemo or neutropenia
#Acute neutropenic fever status post chemo 1 week ago pancreatic cancer
#Acute pancytopenia
monitor neutropenia
last chemo was last week; follows up with Dr Guzman outpatient
monitor CBC
was put on levophed on admission; now weaned off
UA negative, CXR without PNA, COVID/flu negative; blood cultures NGTD
-Neutropenic precautions
oncology following
ID following
follow fever curve
cw IV abx per ID
loose stool overnight likely 2/2 enteritis; cdiff neg
Lactic acidosis
Resolved
#Pancreatic cancer stage II 1 lymph node positive Dx May 2024 on current chemo
-Status post [facility] August 06 2024 [facility]
May 2024 admit MRCP found CBD dilation with concern for intrabiliary or pancreatic neoplasm obstructing CBD and pancreatic duct, s/p ERCP on 06/10/24 with biopsy and plastic stent
-Continue Creon 1 capsule p.o. AC
-Port right upper chest wall
Chemo regimen below:
-Fluorouracil 1 dose IV every 2 weeks last infusion 11/07/2024, 11/08, 11/09 # day home infusion
-Leucovorin calcium 1 dose IV every 2 weeks last dose 11/07/2024
-Oxaliplatin 1 dose IV every 2 weeks 11/07/2024
-Patient states he gets colonizing stimulating factor injection on the third day after chemo he should have had on 11/09/2024
oncology following; no need for prednisone at this time
Significant pancytopenia, hemoglobin 6.8 11/14. No signs of bleeding. Transfuse 1 unit PRBC. Repeat hemoglobin 9.5 today
hold lovenox for thrombocytopenia for now
CT scan 11/14 with possible enteritis, now improving
#CAD status post CABG x 5 vessel 12 years ago
-Continue aspirin 81 mg daily, HOLD metoprolol tartrate 12.5 mg twice daily
metabolic acidosis
monitor
hyponatremia
monitor
Hypomagnesemia
resolved
hypokalemia
#HTN
-HOLD metoprolol 12.5 mg twice daily with hold parameters
#HLD
-Continue simvastatin 20 mg every afternoon
#Hypothyroidism
-Continue levothyroxine 50 mcg p.o. daily
#cholecystectomy hx
DVT prophylaxis
-SCD's
Full code per patient with , son and [id number] at bedside
Discussed with family at bedside
I spent a total of 52 minutes with the patient or on the floor. More than 50% of this time involved counseling and coordination of care.
Anticipated Discharge: 24 - 48 hours
Subjective/Interval History
-
Date of Service: November 15, 2024
denies pain
Objective Data
-
Labs:
Laboratory Results
11/15/24
05:07
WBC 3.0 L
Hgb 9.5 L
Hct 26.6 L
Plt Count 78 L
Sodium 133 L
Potassium 3.8
Chloride 105
Carbon Dioxide 16 L
BUN 15
Creatinine 0.8
Glucose 96
Calcium 8.7
Total Bilirubin 1.1
AST 17
ALT 16
Alkaline Phosphatase 106
Vital Signs:
Vital Signs
Temp Pulse Resp BP Pulse Ox
97.6 F 87 17 134/70 96
11/15/24 07:37 11/15/24 07:37 11/15/24 07:37 11/15/24 07:37 11/15/24 07:37
I&O
11/14/24 11/15/24 11/16/24
06:59 06:59 06:59
Intake Total 2450 / 2450 370 / 370
Output Total 1775 / 1775 900 / 900
Balance 675 / 675 -530 / -530
--- NOTE | 2024-11-15 14:37 | W.PN.ID1 ---
Date of Service
Date of Service: November 15, 2024
Today's Communication
start cefdinir/augmentin to complete 7 more days
Assessment / Plan
Febrile Neutropenia - resolving
Enteritis
Pancreatic cancer
- abdominal pain overnight and today - CT a/p pending
- follow blood cultures
- start cefdinir/augmentin to complete 7 more days
- had long acting GCSF on 11/07
- Of note adult son who now lives with him was diagnosed with non-disseminated shingles 11/13 by his photographer helper and was prescribed topical acyclovir. Family report this is his second episode of shingles I have recommended 1) contact PCP to
consider oral therapy 2) if using topical therapy then use gloves every time 3) avoid touching the lesions 4) ask PCP about immunodeficiency testing 5) dad (Aris) could eventually return to the same home so long as they do not share
clothes/towels/fomites; son keeps the lesions covered until crusted; dad does not touch the lesions; the lesions do not spread to other areas.
- stable for dc from ID perspective
Chief Complaint
-: Fever and Other (neutropenia)
Subjective / Review of Systems
fever resolved
bp stable
tolerating current therapy
Vital Signs / Physical Exam
Vital Signs
Vital Signs
Temp Pulse Resp BP Pulse Ox
97.6 F 87 17 134/70 96
11/15/24 07:37 11/15/24 07:37 11/15/24 07:37 11/15/24 07:37 11/15/24 07:37
Physical Exam
Constitutional: No Acute Distress
Cardiovascular: Regular Rate and S1/S2; Negative Murmur or Rub
Pulmonary: Clear and Symmetric; Negative Wheezes or Rales
Gastrointestinal: Soft, Non Tender, Non Distended and Normal Bowel Sounds
Skin: Warm and Dry; Negative Rash or Jaundice
Objective Data
Lab Data
Lab Results
11/15/24 05:07
11/15/24 05:07
PT 16.3 Sec (11.4-14.6) H 11/13/24 04:57
INR 1.28 11/13/24 04:57
APTT 29.1 Sec (23.4-35.0) 11/13/24 04:57
Estimated Creat Clear 65 ml/min 11/15/24 05:07
Lactic Acid 1.1 mmol/L (0.7-2.0) 11/13/24 09:54
Total Bilirubin 1.1 mg/dl (0.2-1.3) 11/15/24 05:07
AST 17 U/L (17-59) 11/15/24 05:07
ALT 16 U/L (0-50) 11/15/24 05:07
Alkaline Phosphatase 106 U/L (38-126) 11/15/24 05:07
Most recent labs reviewed.
ANC 1.5 today
Micro Results:
11/15/24 08:12 - Pending
Feces/Stool
11/14/24 20:28 C. difficile GDH Antigen & Toxins - Final
Feces/Stool Negative for toxigenic C.difficile
11/12/24 21:22 Blood Culture - Preliminary
Blood/Venous No Growth in 48 hours- Final report to follow
11/12/24 21:22 Blood Culture - Preliminary
Blood/Venous No Growth in 48 hours- Final report to follow
11/13/24 09:54 MRSA Screen - Final
Nose Staph aureus MRSA
11/12/24 22:27 Influenza Types A & B (YVON) - Final
Nasal Swab Negative for Influenza A & B, NAAT
Negative results must be combined with clinical observations
and patient history.
Nucleic Acid Amplification test (NAAT)performed on the
[employer] platform.
[2024-11-15 15:51] VITALS: BP 112/62
[2024-11-15] MEDS: LIPITOR 10 MG PO (17:39)
[2024-11-15] MEDS: LOVENOX 40 MG SC (17:39)
[2024-11-15] MEDS: OMNICEF 300 MG PO (20:12)
[2024-11-15] MEDS: FLAGYL 500 MG PO (20:12)
[2024-11-15 23:55] VITALS: BP 112/60
[2024-11-16 06:00] VITALS: BMI 20.8
[2024-11-16] MEDS: SYNTHROID 50 MCG PO (06:28)
[2024-11-16 07:25] VITALS: BP 120/61
[2024-11-16 08:49] LABS: Hemoglobin 8.2 g/dL (13.0-18.0); Mean Corp Hgb Conc. 34.2 g/dL (33.0-37.0); Mean Corpuscular Hgb 33.1 pg (27.0-31.0); Mean Corpuscular Volume 96.8 fL (80.0-94.0); Mean Platelet Volume 12.2 fL (7.4-10.4); Platelet Count 65 10^3/uL (130-400); Red Blood Cell Count 2.48 10^6/uL (4.70-6.10); Red Cell Dist. Width 18.5 % (11.5-14.5); White Blood Cell Count 12.3 10^3/uL (4.8-10.8)
[2024-11-16] MEDS: PROTONIX 40 MG PO (08:51)
[2024-11-16] MEDS: VITAMIN D3 (cholecalciferol) 50 MCG PO (08:51)
[2024-11-16] MEDS: FLAGYL 500 MG PO (08:51)
[2024-11-16] MEDS: OMNICEF 300 MG PO (08:51)
[2024-11-16] MEDS: ASPIR LOW (ENTERIC COATED) 81 MG PO (08:51)
[2024-11-16] MEDS: ZENPEP DELAYED RELEASE CAPSULE 2 CAPSULE PO ×2 (08:52→12:05)
[2024-11-16] MEDS: SENOKOT PO (08:55)
--- NOTE | 2024-11-16 09:25 | W.PN.HOSP.TC ---
Addendum entered and electronically signed by Linda Arias MD 11/16/24 13:40:
Addendum
d/w oncology, ok to go home
Updated the .
Seen by PT, no skilled needs.
Addendum entered and electronically signed by Linda Arias MD 11/16/24 11:19:
Addendum
Talked to oncology, they will evaluate for discharge
Hypokalemia, replaced
End
Original Note:
Today's Communication/Plan
-
Discharge home if ok with oncology
Assessment / Plan
Assessment / Plan
Physical exam:
General: Comfortable, Conversant, Fever and Chills
HEENT: NormoCephalic, Anicteric, PERRLA, [place] Conjunctivae
Respiratory: Clear; No Wheezes, Rales or Rhonchi
Cardiac: S1/S2 and Regular Rhythm; No Murmur
GI: Soft, Non Tender, Non Distended and Normal Bowel Sounds
Musculoskeletal: No Edema
Skin: Warm, Dry and Other (Port right upper chest wall)
Neuro: AO x 3, No Motor Deficits, Nonfocal/grossly intact
Psych: Calm
Septic shock suspect 2/2 enteritis
suspect Enteritis secondary to possible chemo or neutropenia
#Acute neutropenic fever status post chemo 1 week ago pancreatic cancer
#Acute pancytopenia
Resolved, WBC normalized. a
last chemo was last week with Dr Guzman outpatient
monitored CBC
was put on Levophed on admission; now weaned off
UA negative, CXR without PNA, COVID/flu negative; blood cultures NGTD
-Neutropenic precautions
oncology following
ID following
follow fever curve
s/p IV abx per ID. Started on cefdinir/ Flagyl to complete 7 more days
loose stool overnight likely 2/2 enteritis; cdiff neg
#Lactic acidosis
Resolved
#Pancreatic cancer stage II 1 lymph node positive Dx May 2024 on current chemo
-Status post [facility] August 06 2024 [facility]
May 2024 admit MRCP found CBD dilation with concern for intrabiliary or pancreatic neoplasm obstructing CBD and pancreatic duct, s/p ERCP on 06/10/24 with biopsy and plastic stent
-Continue Creon 1 capsule p.o. AC
-Port right upper chest wall
Chemo regimen below:
-Fluorouracil 1 dose IV every 2 weeks last infusion 11/07/2024, 11/08, 11/09 # day home infusion
-Leucovorin calcium 1 dose IV every 2 weeks last dose 11/07/2024
-Oxaliplatin 1 dose IV every 2 weeks 11/07/2024
-Patient states he gets colonizing stimulating factor injection on the third day after chemo he should have had on 11/09/2024
oncology following; no need for prednisone at this time
Significant pancytopenia, hemoglobin 6.8 11/14. No signs of bleeding. Transfuse 1 unit PRBC. Repeat hemoglobin 8.2 today
hold Lovenox for thrombocytopenia.
CT scan 11/14 with possible enteritis, now improving
#CAD status post CABG x 5 vessel 12 years ago
No chest pain.
-Continue aspirin 81 mg daily, HOLD metoprolol tartrate 12.5 mg twice daily
# Metabolic acidosis
Resolved.
#hyponatremia
monitor
#Hypomagnesemia
resolved
#hypokalemia
#HTN
-Back metoprolol 12.5 mg twice daily with hold parameters
#HLD
-Continue simvastatin 20 mg every afternoon
#Hypothyroidism
-Continue levothyroxine 50 mcg p.o. daily
#cholecystectomy hx
DVT prophylaxis
-SCD's
Full code per patient with , son and [id number] at bedside
Discussed with family at bedside
Total discharge time spent to see the patient, examine the patient, review data and lab results, discuss discharge plan with patient and nursing staff around 65 minutes
Anticipated Discharge: Today
Subjective/Interval History
-
Date of Service: November 16, 2024
he wants to go home
Objective Data
-
Labs:
Laboratory Results
11/16/24
08:08
WBC 12.3 H
Hgb 8.2 L
Hct 24.0 L
Plt Count 65 L
Sodium Pending
Potassium Pending
Chloride Pending
Carbon Dioxide Pending
BUN Pending
Creatinine Pending
Glucose Pending
Calcium Pending
Total Bilirubin Pending
AST Pending
ALT Pending
Alkaline Phosphatase Pending
Vital Signs:
Vital Signs
Temp Pulse Resp BP Pulse Ox
97.9 F 85 16 120/61 98
11/16/24 07:25 11/16/24 07:25 11/16/24 07:25 11/16/24 07:25 11/16/24 07:25
I&O
11/15/24 11/16/24 11/17/24
06:59 06:59 07:59
Intake Total 370 / 370 660 / 660
Output Total 900 / 900 465 / 465
Balance -530 / -530 195 / 195
[2024-11-16] MEDS: LOPRESSOR 12.5 MG PO (09:46)
[2024-11-16 09:54] LABS: ALT (SGPT) 14 U/L (0-50); AST (SGOT) 16 U/L (17-59); Albumin 2.4 g/dl (3.5-5.0); Alkaline Phosphatase 103 U/L (38-126); Blood Urea Nitrogen 11 mg/dl (9-20); Calcium 8.3 mg/dl (8.4-10.2); Carbon Dioxide 20 mmol/L (22-30); Chloride 106 mmol/L (98-107); Estimated Creatinine Clearance 50 ml/min; Glucose 69 mg/dl (70-99); Potassium 3.1 mmol/L (3.5-5.1); Sodium 135 mmol/L (135-145); Total Bilirubin 0.5 mg/dl (0.2-1.3); Total Protein 4.3 g/dl (6.3-8.2); eGFR > 60.00
[2024-11-16 11:14] LABS: Absolute Neutrophils -Man Diff 9.2 10^3/uL (1.4-6.5); Anisocytosis 1+; Band Neutrophils 27 % (0-3); Eosinophils 1 % (0-6); Lymphocytes 12 % (20-51); Metamyelocytes 3 % (-); Monocytes 8 % (2-9); Myelocytes 1 % (-); Normal RBC Morphology No; Platelets Checked Yes; Segmented Neutrophils 48 % (42-75)
[2024-11-16 11:15] LABS: Hypochromasia Slight; Ovalocytes Slight; Total Cells Counted 100
[2024-11-16] MEDS: KCL 20 MEQ PO (12:05)
[2024-11-16 12:37] VITALS: BP 104/47; BP 123/66
--- NOTE | 2024-11-16 13:30 | W.DCSUMMARY ---
Discharge Summary
Discharge Data
Date of Admission: 11/12/24
Date of Discharge: 11/16/24
-
Pending Results: No
Hospital Course
78 years old male admitted with weakness, nausea, vomiting and decreased appetite. Patient was found to have fever. Blood work showed neutropenia. Patient has history of pancreatic cancer and under treatment. Patient was diagnosed with
neutropenic fever with lactic acidosis he met the criteria of sepsis. He had low blood pressure and was given intravenous fluid with pressure support medication. He was initially admitted to the intensive care unit. He was evaluated by ICU doctor
and infectious diseases consultants. He was started on broad-spectrum intravenous antibiotics. No evidence of pneumonia, cellulitis or mucositis. Scan of the abdomen and pelvis showed status post Whipple procedure, enteritis with no evidence of
bowel obstruction. Blood culture did not show any growth. Patient had chemotherapy induced pancytopenia. He was given 1 unit of red blood cells. Patient had the treatment with LA G-CSF (Rolvedon) on 11/07/24. white blood cell count gradually
improved to 12.3 upon discharge, hemoglobin 8.2 and platelet 65. Patient started to improve with no nausea or vomiting. He tolerated diet. Antibiotic course was changed to oral antibiotic. Patient was discharged on cefdinir and Flagyl. Patient
remained hemodynamically stable. He was able to ambulate independently. Patient was discharged home in a stable condition peer
Discharge Plan
-
Patient Disposition: Home (Routine Discharge)
Discharge Diagnosis/Procedures: Acute enteritis/febrile neutropenia
Your white blood cell count 12.3 upon discharge
You were followed by ID doctor and oncologist.
You were seen by ICU/pulmonary doctor.
You received intravenous antibiotics. Blood culture remained negative.
Diet: As tolerated
Referrals:
Hema Guzman DO [Active] - 11/19/24 9:30 am
Bhanu Isaacs DO [Family Provider] -
Prescriptions:
New
metronidazole 500 mg Tablet
500 mg PO BID Qty: 12 0RF
cefdinir 300 mg Capsule
300 mg PO Q12 Qty: 12 0RF
Rx Instructions:
Patient tolerated this medicine in the hospital without allergic reaction.
Continued
aspirin 81 MG tablet,delayed release (DR/EC)
81 mg PO DAILY
levothyroxine 50 mcg Tablet
50 mcg PO DAILY
simvastatin 20 mg Tablet
20 mg PO QPM
metoprolol tartrate 25 mg Tablet
12.5 mg PO BID
cholecalciferol (vitamin D3) [Vitamin D3] 50 mcg (2,000 unit) Tablet
50 mcg PO DAILY
sennosides [senna] 8.6 mg Tablet
8.6 mg PO DAILY
Creon 24,000-76,000 -120,000 unit Capsule,Delayed Release(Dr/Ec)
1 cap PO AC
prednisone 10 mg Tablet
10 mg PO DAILYPRN PRN (Reason: TAKE ON 4TH,5TH AND 6TH DAY AFTER CHEMO)
Oxaliplatin
1 dose IV Q2W
fluorouracil
1 dose IV Q2W
leucovorin calcium
1 dose IV Q2W
Discharge Orders:
Discharge Patient (As Directed); Ordered 11/16/24
Ordered By: Linda Arias
Discharge Date and Time
Print Language: FRISIAN
--- NOTE | 2024-11-16 13:45 | W.PN.ONC ---
Today's Communication / Plan
-
outpt f/u next week w/ Dr. Guzman's office
Impression
Impression
Neutropenic fever resolved
CT shows possible neutropenic enteritis
Stage IIb pancreatic cancer on adjuvant FOLFOX chemotherapy
Chemotherapy-induced pancytopenia
CAD
Plan
Plan
1. Neutropenia/ sepsis
-neutropenia resolved
-antibiotics as per ID - transitioned to oral
2. Pancreatic cancer
-has outpt f/u next week to discuss continued plan of care
Subjective/Objective
Subjective/Objective
no new complaints, no fevers
Vital Signs:
Vital Signs
Temp Pulse Resp BP Pulse Ox
97.9 F 85 16 120/61 98
11/16/24 07:25 11/16/24 07:25 11/16/24 07:25 11/16/24 07:25 11/16/24 07:25
Lab Results:
Laboratory Data
WBC 12.3 10^3/uL (4.8-10.8) H 11/16/24 08:08
Hgb 8.2 g/dL (13.0-18.0) L 11/16/24 08:08
Plt Count 65 10^3/uL (130-400) L 11/16/24 08:08
PT 16.3 Sec (11.4-14.6) H 11/13/24 04:57
INR 1.28 11/13/24 04:57
APTT 29.1 Sec (23.4-35.0) 11/13/24 04:57
eGFR > 60.00 11/16/24 08:08
[2024-11-16 14:00] VITALS: BP 115/60
--- NOTE | 2024-11-16 15:20 | PTCARENOTE ---
patient denied complaints tolerating diet, independent with ambulation, vss, for discharge to home with his today.
== END 2024-11-16 15:15 | disposition home or self-care (01) | DRG 871 ==
LOC: 3 WEST ACU 23:33
PROVIDERS: Clinical Nurse Specialist Family Health; Emergency Medicine; Internal Medicine; Nurse Practitioner Family; ADMITTING PHYSICIAN Internal Medicine; ATTENDING PHYSICIAN Internal Medicine; CONSULT PHYSICIAN Internal Medicine; CONSULT PHYSICIAN Student in an Organized Health Care Education/Training Program; EMERGENCY PHYSICIAN Emergency Medicine; FAMILY PHYSICIAN Family Medicine; OTHER PHYSICIAN Internal Medicine Hematology & Oncology
PROC: 30233N1 Transfusion of Nonautologous Red Blood Cells into Peripheral Vein, Percutaneous Approach (ICD-10-PCS; 2024-11-14)
DX: A41.9 Sepsis, unspecified organism (principal); D61.810 Antineoplastic chemotherapy induced pancytopenia; R65.21 Severe sepsis with septic shock; C25.9 Malignant neoplasm of pancreas, unspecified; E87.20 Acidosis, unspecified; K52.9 Noninfective gastroenteritis and colitis, unspecified; D70.9 Neutropenia, unspecified; Z90.411 Acquired partial absence of pancreas; T45.1X5A Adverse effect of antineoplastic and immunosuppressive drugs, initial encounter; Z11.52 Encounter for screening for COVID-19; Z79.890 Hormone replacement therapy; E87.6 Hypokalemia; Z95.1 Presence of aortocoronary bypass graft; I25.10 Atherosclerotic heart disease of native coronary artery without angina pectoris; E78.00 Pure hypercholesterolemia, unspecified; I10 Essential (primary) hypertension; Z82.49 Family history of ischemic heart disease and other diseases of the circulatory system; E03.9 Hypothyroidism, unspecified; Z82.3 Family history of stroke; Z88.0 Allergy status to penicillin; Z79.82 Long term (current) use of aspirin; R62.7 Adult failure to thrive; Z79.899 Other long term (current) drug therapy
CPT/HCPCS: 71045; 74177; 80053; 81003; 81015; 82248; 82962; 83605; 83735; 84100; 84443; 84484; 85025; 85610; 85730; 86850; 86900; 86901; 86920; 87040; 87070; 87147; 87324; 87449; 87502; 87798; 87811; 93005; 96361; 96365; 96375; 97162; 99285; P9016; Q9967

== ENCOUNTER → 2024-11-18 09:36 | Outpatient (REF) | payer MEDICARE, OTHER, SELFPAY ==
[2024-11-18 11:43] LABS: ALT (SGPT) 22 U/L (0-50); AST (SGOT) 34 U/L (17-59); Alkaline Phosphatase 220 U/L (38-126); Blood Urea Nitrogen 12 mg/dl (9-20); Calcium 8.4 mg/dl (8.4-10.2); Carbon Dioxide 22 mmol/L (22-30); Chloride 107 mmol/L (98-107); Glucose 107 mg/dl (70-99); Potassium 3.1 mmol/L (3.5-5.1); Sodium 138 mmol/L (135-145); Total Bilirubin 0.4 mg/dl (0.2-1.3); Total Protein 5.2 g/dl (6.3-8.2); eGFR > 60.00
[2024-11-18 12:32] LABS: % Basophils 0.1 % (0-2); % Eosinophils 0.3 % (0-6); % Lymphocytes 4.2 % (20.5-51.1); % Neutrophils 71.4 % (42.2-75.2); Absolute Eosinophils 0.2 10^3/uL (0-0.7); Absolute Immature Granulocytes 5.6 10^3/uL (0-0.05); Absolute Lymphocytes 2.1 10^3/uL (1.2-3.4); Absolute Monocytes 6.6 10^3/uL (0.1-0.6); Absolute Neutrophils 36.1 10^3/uL (1.4-6.5); Hematocrit 28.4 % (39.0-52.0); Hemoglobin 9.4 g/dL (13.0-18.0); Mean Corp Hgb Conc. 33.1 g/dL (33.0-37.0); Mean Corpuscular Hgb 32.9 pg (27.0-31.0); Mean Corpuscular Volume 99.3 fL (80.0-94.0); Mean Platelet Volume 10.6 fL (7.4-10.4); Platelet Count 107 10^3/uL (130-400); Red Blood Cell Count 2.86 10^6/uL (4.70-6.10); Red Cell Dist. Width 19.5 % (11.5-14.5)
[2024-11-18 12:37] LABS: White Blood Cell Count 50.6 10^3/uL (4.8-10.8)
== END ==
LOC: OIDL 09:36
PROVIDERS: ATTENDING PHYSICIAN Internal Medicine Hematology & Oncology; FAMILY PHYSICIAN Family Medicine
DX: C25.9 Malignant neoplasm of pancreas, unspecified (principal); D64.9 Anemia, unspecified; R53.83 Other fatigue
CPT/HCPCS: 36415; 80053; 85025

== ENCOUNTER → 2024-11-25 11:38 | Outpatient (REF) | payer MEDICARE, OTHER, SELFPAY ==
[2024-11-25 11:53] LABS: % Basophils 0.6 % (0-2); % Eosinophils 0.6 % (0-6); % Immature Granulocytes 1.6 % (0-0.5); % Lymphocytes 9.3 % (20.5-51.1); % Neutrophils 80.9 % (42.2-75.2); Absolute Basophils 0.1 10^3/uL (0-0.2); Absolute Eosinophils 0.1 10^3/uL (0-0.7); Absolute Immature Granulocytes 0.3 10^3/uL (0-0.05); Absolute Lymphocytes 1.9 10^3/uL (1.2-3.4); Absolute Monocytes 1.4 10^3/uL (0.1-0.6); Absolute Neutrophils 16.1 10^3/uL (1.4-6.5); Hematocrit 31.6 % (39.0-52.0); Hemoglobin 10.2 g/dL (13.0-18.0); Mean Corp Hgb Conc. 32.3 g/dL (33.0-37.0); Mean Corpuscular Hgb 34.2 pg (27.0-31.0); Mean Platelet Volume 10.1 fL (7.4-10.4); Platelet Count 376 10^3/uL (130-400); Red Blood Cell Count 2.98 10^6/uL (4.70-6.10); Red Cell Dist. Width 22.7 % (11.5-14.5); White Blood Cell Count 19.9 10^3/uL (4.8-10.8)
[2024-11-25 13:18] LABS: ALT (SGPT) 22 U/L (0-50); AST (SGOT) 30 U/L (17-59); Albumin 3.8 g/dl (3.5-5.0); Alkaline Phosphatase 159 U/L (38-126); Blood Urea Nitrogen 16 mg/dl (9-20); Calcium 9.4 mg/dl (8.4-10.2); Carbon Dioxide 26 mmol/L (22-30); Chloride 100 mmol/L (98-107); Glucose 101 mg/dl (70-99); Potassium 4.9 mmol/L (3.5-5.1); Sodium 135 mmol/L (135-145); Total Bilirubin 0.7 mg/dl (0.2-1.3); Total Protein 6.2 g/dl (6.3-8.2); eGFR > 60.00
== END ==
LOC: OIDL 11:38
PROVIDERS: ATTENDING PHYSICIAN Internal Medicine Hematology & Oncology; FAMILY PHYSICIAN Family Medicine
DX: C25.9 Malignant neoplasm of pancreas, unspecified (principal); D64.9 Anemia, unspecified; R53.83 Other fatigue; D50.9 Iron deficiency anemia, unspecified
CPT/HCPCS: 36415; 80053; 85025

== ENCOUNTER → 2024-11-26 09:57 | Outpatient (REF) | payer MEDICARE, OTHER, SELFPAY ==
[2024-11-29 08:51] LABS: CA 19-9 16 U/mL (<=35)
== END ==
LOC: OIDL 09:57
PROVIDERS: ATTENDING PHYSICIAN Nurse Practitioner Adult Health
DX: C25.9 Malignant neoplasm of pancreas, unspecified (principal); D64.9 Anemia, unspecified; R53.83 Other fatigue; D50.9 Iron deficiency anemia, unspecified
CPT/HCPCS: 86301

== ENCOUNTER 2024-12-04 17:14 | Emergency (ER) | payer MEDICARE, OTHER, SELFPAY ==
[2024-12-04 17:19] VITALS: BP 113/77
--- NOTE | 2024-12-04 18:00 | ED.GENMED ---
History of Present Illness
General
Chief Complaint: Weakness
Source: patient
Time Seen by Provider: 12/04/24 17:48
History of Present Illness
History of Present Illness:
79-year-old male presents to the emergency room complaining of generalized weakness for the past 2 or 3 days. Patient was recently diagnosed with pancreatic cancer. He had a Whipple procedure performed July 2024. He began chemotherapy after a
period of recovery. He most recently completed his fourth cycle of chemotherapy. He has been feeling increasingly weak. He has no nausea or vomiting but has very poor oral intake. Patient was hospitalized here November 13 at which point he had
absolute neutropenia, thrombocytopenia. Patient denies having any fever today. He denies any sore throat or cough. He denies any abdominal pain.
Past History
Past History
ED Past Medical History: HTN
ED Past Surgical History: Appendectomy and Cholecystectomy
Social History
Tobacco: Non-smoker
Alcohol: None
Drug: None
Personal:
Living: with family
Phy Exam
Physical Exam
Physical Exam:
General: Awake, Alert, Oriented X3. No acute distress. Appears pale, very thin
Vitals: Tachycardic
Head: Atraumatic
Eyes: Pupils equal, EOMI
Throat: Airway intact, no exudates, dry mucosa
Neck: Trachea midline
Lungs: Clear and equal b/l
Heart: Regular rate, no murmurs
Abd: Soft, Nontender, No pulsatile mass
Neuro: Nonfocal
Skin: Warm, dry, no rash
Extremities: pulses equal b/l, no edema
Course
Orders/Labs/Results
Orders:
Orders
12/04/24 17:28
Electrocardiogram (*1) Urgent
Reason for Study: Tachycardia
EKG- Treatment ONCE
12/04/24 17:59
0.9% Sodium Chloride 1000 ml [Nss] 1,000 ml IV BOLUS
12/04/24 18:07
Complete Blood Count/With Diff Urgent
Comprehensive Metabolic Panel Urgent
Magnesium Urgent
Phos [Phosphorus] Urgent
12/04/24 18:12
Urinalysis Reflex To Culture Urgent
Date Specimen was Collected: 12/04/24
Time Specimen was Collected: 18:10
Urine Microscopic Reflex Cult Urgent
Urine Culture Urgent
ÁNGELA Source: U
Specimen Description:
Date Specimen was Collected: 12/04/24
Time Specimen was Collected: 18:10
Abnormal Lab Results
12/04/24 12/04/24
18:07 18:12
WBC 1.2 L* 10^3/uL
(4.8-10.8)
RBC 2.50 L 10^6/uL
(4.70-6.10)
Hgb 8.6 L g/dL
(13.0-18.0)
Hct 25.8 L %
(39.0-52.0)
MCV 103.2 H fL
(80.0-94.0)
MCH 34.4 H pg
(27.0-31.0)
RDW 21.1 H %
(11.5-14.5)
Plt Count 62 L 10^3/uL
(130-400)
MPV 12.8 H fL
(7.4-10.4)
Abs Immat Gran (auto) 0.1 H 10^3/uL
(0-0.05)
Absolute Neuts (auto) 0.4 L* 10^3/uL
(1.4-6.5)
Absolute Lymphs (auto) 0.5 L 10^3/uL
(1.2-3.4)
Immature Gran % 7.7 H %
(0-0.5)
Neutrophils % 32.4 L %
(42.2-75.2)
Monocytes % 18.8 H %
(1.7-9.3)
Sodium 133 L mmol/L
(135-145)
BUN 26 H mg/dl
(9-20)
Glucose 129 H mg/dl
(70-99)
Alkaline Phosphatase 134 H U/L
(38-126)
Total Protein 5.4 L g/dl
(6.3-8.2)
Albumin 3.3 L g/dl
(3.5-5.0)
Urine Ketones 1+ A
(Negative)
Ur Occult Blood Reflex 1+ A
(Negative)
Leukocyte Esterase Rfl 1+ A
(Negative)
Urine Bacteria (Reflex) Few A
(Negative)
Urine Albumin (Reflex) 1+ A
(Neg - Trace)
12/04/24 18:07
12/04/24 18:07
Vital Signs
Initial and Last Documented VS:
Initial Vital Signs
Temp Pulse Resp BP Pulse Ox
97.3 F 120 28 113/77 100
12/04/24 17:19 12/04/24 17:19 12/04/24 17:19 12/04/24 17:19 12/04/24 17:19
Last Documented Vital Signs
Temp Pulse Resp BP Pulse Ox
98.7 F 90 27 101/66 100
12/04/24 20:14 12/04/24 20:14 12/04/24 20:14 12/04/24 21:00 12/04/24 21:00
MDM/Problems Addressed
Differential Diagnosis Includes:
Dehydration, hyponatremia or other lecture abnormality, symptomatic anemia, neutropenia
MDM/Problems Addressed:
Patient presents with progressive malaise and weakness. He is afebrile. Will start some IV fluids and obtain labs
Labs c/w dehydration. WBC low with ANC 400. No fever. Plt count low but acceptable. Given no fever and feeling better after ivf pt can be discharged. He understands to return if he develops a fever. Discussed with Dr. Robledo via TT
Chronic conditions affecting care: Cancer (pancreatic)
*Pulse Oximetry
Patient hypoxic: no
*EKG
Interpreted by ED Provider?: Yes
Interpretation: abnormal
Heart Rate: 109
Rate: tachycardiac
Rhythm: sinus tachycardia
Whitney: normal axis
Interval: normal interval
QRS Pattern: normal QRS
Ischemia: no ischemia
*Caramel Candy Maker Interpretation
Rate: tachycardiac
Rhythm: sinus tachycardia
*Critical Care Note
Total Time (30-74mins, 75-104mins- exclusive of procedures): Not Applicable
Data Reviewed
Review of Other/Old Records Reveals: Discharge Summary
Patient Management
Social determinants of health affecting care: Strong social support
ED Attending Note
-
Portions of this chart may have been created with voice recognition software.� Occasional wrong word or��sound alike� substitutions may have occurred due to the inherent limitations of voice recognition software.
Discharge Plan
Departure
Patient Disposition: Home (Routine Discharge)
Date of Disposition: 12/04/24
Time of Disposition: 20:49
Patient with high blood pressure during this ER visit?: No
Condition: Good
Discharge Problem:
Acute dehydration, Chemotherapy induced neutropenia, Chemotherapy-induced nausea, Thrombocytopenia
Instructions: Nausea and vomiting with cancer treatment, Neutropenia and fever in people being treated for cancer, Dehydration in adults - ED discharge instructions
Prescriptions:
No Action
aspirin 81 MG tablet,delayed release (DR/EC)
81 mg PO DAILY
levothyroxine 50 mcg Tablet
50 mcg PO DAILY
simvastatin 20 mg Tablet
20 mg PO QPM
metoprolol tartrate 25 mg Tablet
12.5 mg PO BID
cholecalciferol (vitamin D3) [Vitamin D3] 50 mcg (2,000 unit) Tablet
50 mcg PO DAILY
sennosides [senna] 8.6 mg Tablet
8.6 mg PO DAILY
Creon 24,000-76,000 -120,000 unit Capsule,Delayed Release(Dr/Ec)
1 cap PO AC
prednisone 10 mg Tablet
10 mg PO DAILYPRN PRN (Reason: TAKE ON 4TH,5TH AND 6TH DAY AFTER CHEMO)
Oxaliplatin
1 dose IV Q2W
fluorouracil
1 dose IV Q2W
leucovorin calcium
1 dose IV Q2W
metronidazole 500 mg Tablet
500 mg PO BID Qty: 12 0RF
cefdinir 300 mg Capsule
300 mg PO Q12 Qty: 12 0RF
Rx Instructions:
Patient tolerated this medicine in the hospital without allergic reaction.
Referrals:
Bhanu Isaacs, DO [Family Provider] -
Activity Restrictions/Additional Instructions:
I believe your weakness is related to dehydration. Your blood work shows that your neutrophil count ( a type of white blood cell) is low. We do not need to admit for this at this time but you need to return if you develop a fever (temp >100.4).
Call the [place] office in the morning to arrange follow up.
Interventions
Interventions:
*Risk Screen - Suicide Last Done: 12/04/24 17:22
*General Assessment Last Done: 12/04/24 18:10
*Neglect/Abuse Screening Last Done: 12/04/24 17:22
*ED- Fall Risk Assessment Last Done: 12/04/24 18:10
*ED COVID-19 Vaccine History Last Done: 12/04/24 18:10
*Nursing Disposition Last Done: 12/04/24 21:21
ED- Cardiac Assessment Last Done: 12/04/24 18:15
ED- Neurological Assessment Last Done: 12/04/24 18:15
ED- Pulmonary Assessment Last Done: 12/04/24 18:15
Discharge Date and Time
Discharge Date/Time: 12/04/24 21:21
Print Language: AMHARIC
[2024-12-04] MEDS: NSS 1000 IV (18:05)
[2024-12-04 18:10] VITALS: BMI 19.5
[2024-12-04 18:24] LABS: Urine Albumin 1+ (Neg - Trace); Urine Bilirubin Negative (Negative); Urine Character Clear (Clear); Urine Color Yellow; Urine Glucose Negative (Negative); Urine Ketone 1+ (Negative); Urine Leukocyte 1+ (Negative); Urine Nitrite Negative (Negative); Urine Occult Blood 1+ (Negative); Urine Specific Gravity 1.015 (<1.030); Urine Urobilinogen Negative (Neg - 1+)
[2024-12-04 18:35] LABS: Hematocrit 25.8 % (39.0-52.0); Hemoglobin 8.6 g/dL (13.0-18.0); Mean Corp Hgb Conc. 33.3 g/dL (33.0-37.0); Mean Corpuscular Hgb 34.4 pg (27.0-31.0); Mean Corpuscular Volume 103.2 fL (80.0-94.0); Mean Platelet Volume 12.8 fL (7.4-10.4); Platelet Count 62 10^3/uL (130-400); Red Cell Dist. Width 21.1 % (11.5-14.5); White Blood Cell Count 1.2 10^3/uL (4.8-10.8)
[2024-12-04 18:36] LABS: ALT (SGPT) 16 U/L (0-50); AST (SGOT) 21 U/L (17-59); Albumin 3.3 g/dl (3.5-5.0); Alkaline Phosphatase 134 U/L (38-126); Blood Urea Nitrogen 26 mg/dl (9-20); Calcium 8.4 mg/dl (8.4-10.2); Carbon Dioxide 23 mmol/L (22-30); Chloride 103 mmol/L (98-107); Estimated Creatinine Clearance 51 ml/min; Glucose 129 mg/dl (70-99); Magnesium 1.8 mg/dl (1.6-2.3); Phosphorus 2.5 mg/dl (2.5-4.5); Potassium 3.8 mmol/L (3.5-5.1); Sodium 133 mmol/L (135-145); Total Bilirubin 0.6 mg/dl (0.2-1.3); Total Protein 5.4 g/dl (6.3-8.2); eGFR > 60.00
[2024-12-04 18:37] LABS: Urine Bacteria Few (Negative); Urine Red Blood Cell 0-2 /HPF (0-2); Urine Squamous Cell 0-2 /LPF (Few); Urine White Cell 0-2 /HPF (0-5)
[2024-12-04 18:38] LABS: Urine Mucus Moderate
[2024-12-04 19:00] VITALS: BP 100/64
[2024-12-04 19:19] LABS: % Basophils 0.9 % (0-2); % Eosinophils 1.7 % (0-6); % Immature Granulocytes 7.7 % (0-0.5); % Lymphocytes 38.5 % (20.5-51.1); % Monocytes 18.8 % (1.7-9.3); % Neutrophils 32.4 % (42.2-75.2); Absolute Immature Granulocytes 0.1 10^3/uL (0-0.05); Absolute Lymphocytes 0.5 10^3/uL (1.2-3.4); Absolute Monocytes 0.2 10^3/uL (0.1-0.6); Absolute Neutrophils 0.4 10^3/uL (1.4-6.5); Nucleated Red Blood Cells % 0 % (-)
[2024-12-04 20:00] VITALS: BP 99/56
[2024-12-04 20:17] VITALS: BP 119/64
[2024-12-04 21:00] VITALS: BP 101/66
== END 2024-12-04 21:21 | disposition home or self-care (01) ==
LOC: EMR 17:14
PROVIDERS: EMERGENCY PHYSICIAN Emergency Medicine; FAMILY PHYSICIAN Family Medicine; REFERRING PHYSICIAN Internal Medicine Hematology & Oncology
DX: E86.0 Dehydration (principal); D70.1 Agranulocytosis secondary to cancer chemotherapy; T45.1X5A Adverse effect of antineoplastic and immunosuppressive drugs, initial encounter; C25.9 Malignant neoplasm of pancreas, unspecified; R11.0 Nausea; D69.6 Thrombocytopenia, unspecified; I10 Essential (primary) hypertension
CPT/HCPCS: 96360; 99284; 80053; 81003; 81015; 83735; 84100; 85025; 87086; 93005

== ENCOUNTER → 2024-12-09 09:35 | Outpatient (REF) | payer MEDICARE, OTHER, SELFPAY ==
[2024-12-09 09:24] LABS: % Basophils 0.1 % (0-2); % Eosinophils 0.2 % (0-6); % Immature Granulocytes 4.1 % (0-0.5); % Lymphocytes 6.8 % (20.5-51.1); % Monocytes 9.1 % (1.7-9.3); % Neutrophils 79.7 % (42.2-75.2); Absolute Eosinophils 0.1 10^3/uL (0-0.7); Absolute Immature Granulocytes 1.2 10^3/uL (0-0.05); Absolute Lymphocytes 1.9 10^3/uL (1.2-3.4); Absolute Monocytes 2.6 10^3/uL (0.1-0.6); Absolute Neutrophils 22.8 10^3/uL (1.4-6.5); Hematocrit 28.4 % (39.0-52.0); Hemoglobin 9.4 g/dL (13.0-18.0); Mean Corp Hgb Conc. 33.1 g/dL (33.0-37.0); Mean Corpuscular Hgb 34.9 pg (27.0-31.0); Mean Corpuscular Volume 105.6 fL (80.0-94.0); Mean Platelet Volume 11.4 fL (7.4-10.4); Platelet Count 143 10^3/uL (130-400); Red Blood Cell Count 2.69 10^6/uL (4.70-6.10); Red Cell Dist. Width 22.1 % (11.5-14.5); White Blood Cell Count 28.7 10^3/uL (4.8-10.8)
[2024-12-09 10:09] LABS: ALT (SGPT) 22 U/L (0-50); AST (SGOT) 27 U/L (17-59); Albumin 3.3 g/dl (3.5-5.0); Alkaline Phosphatase 207 U/L (38-126); Blood Urea Nitrogen 19 mg/dl (9-20); Calcium 8.8 mg/dl (8.4-10.2); Carbon Dioxide 21 mmol/L (22-30); Chloride 107 mmol/L (98-107); Glucose 100 mg/dl (70-99); Potassium 3.4 mmol/L (3.5-5.1); Sodium 141 mmol/L (135-145); Total Bilirubin 0.5 mg/dl (0.2-1.3); Total Protein 5.6 g/dl (6.3-8.2); eGFR > 60.00
[2024-12-10 08:31] LABS: CA 19-9 11 U/mL (<=35)
== END ==
LOC: OIDL 09:35
PROVIDERS: ATTENDING PHYSICIAN Internal Medicine Hematology & Oncology
DX: C25.9 Malignant neoplasm of pancreas, unspecified (principal); D64.9 Anemia, unspecified
CPT/HCPCS: 80053; 85025; 86301

== ENCOUNTER → 2024-12-24 11:31 | Outpatient (REF) | payer MEDICARE, OTHER, SELFPAY ==
[2024-12-24 16:15] LABS: % Basophils 0.7 % (0-2); % Eosinophils 1.6 % (0-6); % Immature Granulocytes 0.5 % (0-0.5); % Lymphocytes 11.7 % (20.5-51.1); % Monocytes 6.6 % (1.7-9.3); % Neutrophils 78.9 % (42.2-75.2); Absolute Basophils 0.1 10^3/uL (0-0.2); Absolute Eosinophils 0.2 10^3/uL (0-0.7); Absolute Immature Granulocytes 0.1 10^3/uL (0-0.05); Absolute Lymphocytes 1.2 10^3/uL (1.2-3.4); Absolute Monocytes 0.7 10^3/uL (0.1-0.6); Absolute Neutrophils 8.3 10^3/uL (1.4-6.5); Hemoglobin 8.9 g/dL (13.0-18.0); Mean Corp Hgb Conc. 31.8 g/dL (33.0-37.0); Mean Corpuscular Volume 113.4 fL (80.0-94.0); Mean Platelet Volume 11.3 fL (7.4-10.4); Nucleated Red Blood Cells % 0 % (-); Platelet Count 216 10^3/uL (130-400); Red Blood Cell Count 2.47 10^6/uL (4.70-6.10); Red Cell Dist. Width 21.2 % (11.5-14.5); White Blood Cell Count 10.5 10^3/uL (4.8-10.8)
[2024-12-24 16:21] LABS: ALT (SGPT) 29 U/L (0-50); AST (SGOT) 46 U/L (17-59); Albumin 3.7 g/dl (3.5-5.0); Alkaline Phosphatase 137 U/L (38-126); Blood Urea Nitrogen 24 mg/dl (9-20); Calcium 8.9 mg/dl (8.4-10.2); Carbon Dioxide 19 mmol/L (22-30); Chloride 110 mmol/L (98-107); Glucose 132 mg/dl (70-99); Potassium 4.7 mmol/L (3.5-5.1); Sodium 141 mmol/L (135-145); Total Bilirubin 0.6 mg/dl (0.2-1.3); Total Protein 6.2 g/dl (6.3-8.2); eGFR > 60.00
== END ==
LOC: HWLAB 11:31
PROVIDERS: ATTENDING PHYSICIAN Internal Medicine Hematology & Oncology; FAMILY PHYSICIAN Family Medicine
DX: C25.9 Malignant neoplasm of pancreas, unspecified (principal); D64.9 Anemia, unspecified; R53.83 Other fatigue; D50.9 Iron deficiency anemia, unspecified
CPT/HCPCS: 36415; 80053; 85025

== ENCOUNTER → 2025-01-06 10:09 | Outpatient (REF) | payer MEDICARE, OTHER, SELFPAY ==
[2025-01-06 11:42] LABS: % Basophils 0.5 % (0-2); % Eosinophils 10.3 % (0-6); % Immature Granulocytes 0.4 % (0-0.5); % Lymphocytes 11.9 % (20.5-51.1); % Monocytes 7.2 % (1.7-9.3); % Neutrophils 69.7 % (42.2-75.2); Absolute Eosinophils 0.8 10^3/uL (0-0.7); Absolute Lymphocytes 0.9 10^3/uL (1.2-3.4); Absolute Monocytes 0.6 10^3/uL (0.1-0.6); Absolute Neutrophils 5.5 10^3/uL (1.4-6.5); Hemoglobin 8.8 g/dL (13.0-18.0); Mean Corp Hgb Conc. 32.6 g/dL (33.0-37.0); Mean Corpuscular Hgb 37.1 pg (27.0-31.0); Mean Corpuscular Volume 113.9 fL (80.0-94.0); Mean Platelet Volume 10.3 fL (7.4-10.4); Nucleated Red Blood Cells % 0 % (-); Platelet Count 305 10^3/uL (130-400); Red Blood Cell Count 2.37 10^6/uL (4.70-6.10); Red Cell Dist. Width 17.6 % (11.5-14.5); Reticulocyte Count 1.9 % (0.4-2.8); White Blood Cell Count 7.9 10^3/uL (4.8-10.8)
[2025-01-06 11:49] LABS: Iron 74 ug/dl (49-181)
[2025-01-06 11:59] LABS: Percent Saturation 24 % (20-50); Total Iron Binding Capacity 301 ug/dl (261-462)
[2025-01-06 12:57] LABS: Folate > 20.0 ng/ml (2.76-20); Vitamin B12 830 pg/ml (239-931)
[2025-01-07 13:54] LABS: CA 19-9 9 U/mL (<=35)
== END ==
LOC: HWLAB 10:09
PROVIDERS: ATTENDING PHYSICIAN Internal Medicine Hematology & Oncology; FAMILY PHYSICIAN Family Medicine
DX: C25.9 Malignant neoplasm of pancreas, unspecified (principal); D64.9 Anemia, unspecified; R53.83 Other fatigue; D50.9 Iron deficiency anemia, unspecified; I25.10 Atherosclerotic heart disease of native coronary artery without angina pectoris
CPT/HCPCS: 36415; 82607; 82728; 82746; 83540; 83550; 85025; 85045; 86301

== ENCOUNTER → 2025-01-08 09:48 | Outpatient (REF) | payer MEDICARE, OTHER, SELFPAY | LOC: MRI 09:48 | PROVIDERS: ATTENDING PHYSICIAN Internal Medicine Hematology & Oncology; FAMILY PHYSICIAN Internal Medicine | DX: C25.9 Malignant neoplasm of pancreas, unspecified (principal); D64.9 Anemia, unspecified; R53.83 Other fatigue; D50.9 Iron deficiency anemia, unspecified | CPT/HCPCS: 74183; A9575 ==

== ENCOUNTER → 2025-01-20 15:31 | Outpatient (REF) | payer MEDICARE, OTHER, SELFPAY ==
[2025-01-20 12:21] LABS: % Basophils 0.7 % (0-2); % Eosinophils 5.2 % (0-6); % Immature Granulocytes 0.2 % (0-0.5); % Lymphocytes 12.4 % (20.5-51.1); % Monocytes 7.7 % (1.7-9.3); % Neutrophils 73.8 % (42.2-75.2); Absolute Eosinophils 0.3 10^3/uL (0-0.7); Absolute Lymphocytes 0.7 10^3/uL (1.2-3.4); Absolute Monocytes 0.5 10^3/uL (0.1-0.6); Absolute Neutrophils 4.4 10^3/uL (1.4-6.5); Hematocrit 26.2 % (39.0-52.0); Hemoglobin 8.5 g/dL (13.0-18.0); Mean Corp Hgb Conc. 32.4 g/dL (33.0-37.0); Mean Corpuscular Hgb 37.1 pg (27.0-31.0); Mean Corpuscular Volume 114.4 fL (80.0-94.0); Platelet Count 262 10^3/uL (130-400); Red Blood Cell Count 2.29 10^6/uL (4.70-6.10); Red Cell Dist. Width 14.2 % (11.5-14.5)
[2025-01-20 13:23] LABS: TSH 1.81 uIU/ml (0.47-4.68)
[2025-01-20 13:58] LABS: Folate > 20.0 ng/ml (2.76-20); Vitamin B12 374 pg/ml (239-931)
== END ==
LOC: OIDL 15:31
PROVIDERS: ATTENDING PHYSICIAN Internal Medicine Hematology & Oncology
DX: C25.9 Malignant neoplasm of pancreas, unspecified (principal); D64.9 Anemia, unspecified; R53.83 Other fatigue; D50.9 Iron deficiency anemia, unspecified; R53.82 Chronic fatigue, unspecified; D51.9 Vitamin B12 deficiency anemia, unspecified
CPT/HCPCS: 82607; 82746; 84443; 85025

== ENCOUNTER → 2025-02-04 10:18 | Outpatient (REF) | payer MEDICARE, OTHER, SELFPAY | LOC: HWLAB 10:18 | PROVIDERS: ATTENDING PHYSICIAN Internal Medicine Hematology & Oncology; FAMILY PHYSICIAN Family Medicine | DX: C25.9 Malignant neoplasm of pancreas, unspecified (principal); D64.9 Anemia, unspecified; R53.83 Other fatigue; D50.9 Iron deficiency anemia, unspecified; Z12.11 Encounter for screening for malignant neoplasm of colon | CPT/HCPCS: 83520 ==

== ENCOUNTER → 2025-02-14 07:20 | Outpatient (REF) | payer MEDICARE, OTHER, SELFPAY ==
[2025-02-14 09:40] LABS: % Basophils 0.9 % (0-2); % Eosinophils 4.7 % (0-6); % Immature Granulocytes 0.8 % (0-0.5); % Lymphocytes 15.2 % (20.5-51.1); % Monocytes 7.4 % (1.7-9.3); Absolute Basophils 0.1 10^3/uL (0-0.2); Absolute Eosinophils 0.4 10^3/uL (0-0.7); Absolute Immature Granulocytes 0.1 10^3/uL (0-0.05); Absolute Lymphocytes 1.1 10^3/uL (1.2-3.4); Absolute Monocytes 0.6 10^3/uL (0.1-0.6); Absolute Neutrophils 5.3 10^3/uL (1.4-6.5); Hematocrit 29.3 % (39.0-52.0); Hemoglobin 9.7 g/dL (13.0-18.0); Mean Corp Hgb Conc. 33.1 g/dL (33.0-37.0); Mean Corpuscular Hgb 36.3 pg (27.0-31.0); Mean Corpuscular Volume 109.7 fL (80.0-94.0); Mean Platelet Volume 10.8 fL (7.4-10.4); Nucleated Red Blood Cells % 0 % (-); Platelet Count 236 10^3/uL (130-400); Red Blood Cell Count 2.67 10^6/uL (4.70-6.10); Red Cell Dist. Width 12.6 % (11.5-14.5); White Blood Cell Count 7.5 10^3/uL (4.8-10.8)
== END ==
LOC: HWLAB 07:20
PROVIDERS: ATTENDING PHYSICIAN Internal Medicine Hematology & Oncology; FAMILY PHYSICIAN Family Medicine
DX: C25.9 Malignant neoplasm of pancreas, unspecified (principal); D64.9 Anemia, unspecified; R53.83 Other fatigue; D50.9 Iron deficiency anemia, unspecified
CPT/HCPCS: 36415; 85025

== ENCOUNTER → 2025-04-14 16:29 | Outpatient (REF) | payer MEDICARE, OTHER, SELFPAY ==
[2025-04-14 13:54] LABS: Hematocrit 25.9 % (39.0-52.0); Hemoglobin 8.3 g/dL (13.0-18.0); Mean Corp Hgb Conc. 32.0 g/dL (33.0-37.0); Mean Corpuscular Volume 104.9 fL (80.0-94.0); Platelet Count 186 10^3/uL (130-400); Red Cell Dist. Width 14.5 % (11.5-14.5)
[2025-04-14 15:18] LABS: ALT (SGPT) 26 U/L (0-50); AST (SGOT) 25 U/L (17-59); Albumin 3.9 g/dl (3.5-5.0); Alkaline Phosphatase 84 U/L (38-126); Blood Urea Nitrogen 29 mg/dl (9-20); Calcium 9.1 mg/dl (8.4-10.2); Carbon Dioxide 23 mmol/L (22-30); Chloride 110 mmol/L (98-107); Glucose 90 mg/dl (70-99); Iron 82 ug/dl (49-181); Potassium 4.2 mmol/L (3.5-5.1); Sodium 140 mmol/L (135-145); Total Protein 6.3 g/dl (6.3-8.2); eGFR > 60.00
[2025-04-14 15:27] LABS: Total Iron Binding Capacity 343 ug/dl (261-462)
[2025-04-14 15:52] LABS: Ferritin 25.9 ng/ml (17.9-464.0)
== END ==
LOC: OIDL 16:29
PROVIDERS: ATTENDING PHYSICIAN Internal Medicine Hematology & Oncology
DX: C25.9 Malignant neoplasm of pancreas, unspecified (principal); D64.9 Anemia, unspecified; R53.83 Other fatigue; D50.9 Iron deficiency anemia, unspecified
CPT/HCPCS: 80053; 82728; 83540; 83550; 85025; 86301

== ENCOUNTER → 2025-05-06 16:52 | Outpatient (REF) | payer MEDICARE, OTHER, SELFPAY | LOC: MRI 3T 16:52 | PROVIDERS: ATTENDING PHYSICIAN Internal Medicine Hematology & Oncology; FAMILY PHYSICIAN Family Medicine | DX: C25.9 Malignant neoplasm of pancreas, unspecified (principal); D64.9 Anemia, unspecified; R53.83 Other fatigue | CPT/HCPCS: 74183; A9575 ==

== ENCOUNTER → 2025-07-09 11:42 | Outpatient (REF) | payer MEDICARE, OTHER, SELFPAY ==
[2025-07-09 16:03] LABS: Hematocrit 29.4 % (39.0-52.0); Hemoglobin 9.3 g/dL (13.0-18.0); Mean Corp Hgb Conc. 31.6 g/dL (33.0-37.0); Mean Corpuscular Volume 103.5 fL (80.0-94.0); Nucleated Red Blood Cells % 0 % (-); Platelet Count 152 10^3/uL (130-400); Red Cell Dist. Width 15.5 % (11.5-14.5)
[2025-07-09 16:11] LABS: ALT (SGPT) 57 U/L (0-50); AST (SGOT) 44 U/L (17-59); Albumin 4.1 g/dl (3.5-5.0); Alkaline Phosphatase 115 U/L (38-126); Blood Urea Nitrogen 30 mg/dl (9-20); Calcium 9.2 mg/dl (8.4-10.2); Carbon Dioxide 21 mmol/L (22-30); Chloride 107 mmol/L (98-107); Glucose 137 mg/dl (70-99); Iron 58 ug/dl (49-181); Potassium 4.1 mmol/L (3.5-5.1); Sodium 136 mmol/L (135-145); Total Protein 6.9 g/dl (6.3-8.2); eGFR > 60.00
[2025-07-09 16:21] LABS: Total Iron Binding Capacity 292 ug/dl (261-462)
[2025-07-09 16:48] LABS: Ferritin 121.0 ng/ml (17.9-464.0)
== END ==
LOC: HWLAB 11:42
PROVIDERS: ATTENDING PHYSICIAN Internal Medicine Hematology & Oncology; FAMILY PHYSICIAN Nurse Practitioner Family
DX: C25.9 Malignant neoplasm of pancreas, unspecified (principal); D64.9 Anemia, unspecified; R53.83 Other fatigue; D50.9 Iron deficiency anemia, unspecified
CPT/HCPCS: 36415; 80053; 82728; 83540; 83550; 85025